=== PATIENT | male | born 1950 ===

== ENCOUNTER 2017-02-09 16:51 | Inpatient (IN) | payer BC ==
[~2017-02-09] VITALS: Ht 182.9 cm; Wt 53.9 kg
[2017-02-09 21:00] VITALS: BP 149/72; PULSE 66; RESP 18; TEMP 98.2; O2SAT 96
[2017-02-09] MEDS ORDERED: SODIUM CHLORIDE 0.9% FLUSH 10 ML FLUSH IV FLUSH PRN (21:45)
[2017-02-09] MEDS ORDERED: MAGNESIUM HYDROXIDE SUSP 30 ML CUP PO PRN (21:45)
[2017-02-09] MEDS ORDERED: ACETAMINOPHEN 325 MG TAB PO PRN (21:45)
[2017-02-09] MEDS ORDERED: ACETAMINOPHEN/HYDROcodone 325 MG/5 MG TAB PO PRN (21:45)
[2017-02-09] MEDS ORDERED: MORPHINE SULFATE 2 MG/ML INJ IV PUSH PRN (21:45)
[2017-02-09] MEDS ORDERED: HEPARIN-D5W 25,000 U/250 ML 250 ML IV PRN (21:45)
[2017-02-09] MEDS ORDERED: ONDANSETRON HCL 4 MG/2 ML VIAL IVP PRN (21:45)
[2017-02-09] MEDS ORDERED: LACTULOSE SYRUP 20 GM/30 ML CUP PO PRN (21:45)
[2017-02-09] MEDS ORDERED: BISACODYL 10 MG SUPP RECTAL PRN (21:45)
[2017-02-09] MEDS ORDERED: SENNOSIDES 8.6 MG TAB PO PRN (21:45)
[2017-02-09] MEDS ORDERED: ACET-822 PO (21:49)
[2017-02-09] MEDS ORDERED: REST30CA PO (22:08)
[2017-02-09] MEDS ORDERED: BENZ100 PO (22:08)
[2017-02-09] MEDS ORDERED: LIPI20TA PO (22:08)
[2017-02-09] MEDS ORDERED: PROM25TA10 PO (22:08)
[2017-02-09] MEDS ORDERED: CARV3.125 PO (22:08)
[2017-02-09] MEDS ORDERED: PROT40TA PO (22:08)
[2017-02-09] MEDS ORDERED: CEFT1INJ2 IV (22:08)
[2017-02-09] MEDS ORDERED: [UNRECOGNIZED DRUG - CODE] IV (22:08)
[2017-02-09] MEDS ORDERED: CARV6.25 PO (22:08)
[2017-02-09] MEDS ORDERED: ZOFR4TAB PO (22:08)
[2017-02-09] MEDS ORDERED: CLON0.2T PO ×2 (22:08→22:23)
[2017-02-09] MEDS ORDERED: ACYC400T PO (22:08)
[2017-02-09] MEDS ORDERED: CALC0.25 PO (22:08)
[2017-02-09] MEDS ORDERED: OXYC30TA PO (22:08)
[2017-02-09] MEDS ORDERED: OXYC-395 PO (22:08)
[2017-02-09] MEDS ORDERED: INSU100C (22:15)
[2017-02-09 23:00] VITALS: BP 173/80; PULSE 66; RESP 18; TEMP 98.2; O2SAT 98
[2017-02-09] MEDS ORDERED: BENZONATATE 100 MG CAP PO PRN (23:00)
[2017-02-09] MEDS ORDERED: DEXTROSE 50% IN WATER 50 ML VIAL(D50) IV PUSH PRN (23:00)
[2017-02-09] MEDS ORDERED: GLUCAGON 1 MG/ML VIAL OTHER PRN (23:00)
[2017-02-09 23:10] VITALS: PULSE 64
[2017-02-09 23:31] LABS: HEMATOCRIT 25.9 % (39.0-51.0); HEMOGLOBIN 8.7 GM/DL (13.0-17.0); MEAN CELL VOLUME 92.8 FL (80.0-100.0); MEAN CORPUSCULAR HEMOGLOBIN 31.1 PG (27.0-34.0); MEAN CORPUSCULAR HGB CONC 33.5 % (32.0-36.0); MEAN PLATELET VOLUME 7.7 FL (7.0-11.0); PLATELET COUNT 219 TH/MM3 (150-450); RED BLOOD COUNT 2.79 MIL/MM3 (4.50-5.90); RED CELL DISTRIBUTION WIDTH 13.3 % (11.6-17.2); WHITE BLOOD COUNT 7.3 TH/MM3 (4.0-11.0)
[2017-02-09 23:33] LABS: PROTHROMBIN TIME - PATIENT 10.5 SEC (9.8-11.6)
[2017-02-10] VITALS (9 sets, daily range): BP systolic 149–186; BP diastolic 70–88; PULSE 64–77; RESP 18–20; TEMP 97.8–98.8; O2SAT 96–98
[2017-02-10] MEDS: HEPARIN-D5W 25,000 U/250 ML 250 ML IV PRN (05:06)
[2017-02-10 05:17] LABS: AUTOMATED NEUTROPHIL # 5.1 TH/MM3 (1.8-7.7); BASOPHIL % 0.6 % (0.0-2.0); EOSINOPHIL # 0.3 TH/MM3 (0-0.4); EOSINOPHIL % 3.7 % (0.0-4.0); HEMATOCRIT 24.9 % (39.0-51.0); HEMOGLOBIN 8.4 GM/DL (13.0-17.0); LYMPHOCYTE # 1.3 TH/MM3 (1.0-4.8); MEAN CELL VOLUME 91.5 FL (80.0-100.0); MEAN CORPUSCULAR HEMOGLOBIN 31.1 PG (27.0-34.0); MEAN PLATELET VOLUME 7.6 FL (7.0-11.0); MONO % 9.4 % (0.0-8.0); MONOCYTE # 0.7 TH/MM3 (0-0.9); NEUT % 68.3 % (16.0-70.0); PLATELET COUNT 218 TH/MM3 (150-450); RED BLOOD COUNT 2.72 MIL/MM3 (4.50-5.90); RED CELL DISTRIBUTION WIDTH 13.2 % (11.6-17.2); WHITE BLOOD COUNT 7.4 TH/MM3 (4.0-11.0)
[2017-02-10 05:46] LABS: ALBUMIN 2.2 GM/DL (3.4-5.0); AST (GOT) 9 U/L (15-37); BICARBONATE 27.9 MEQ/L (21.0-32.0); BLOOD UREA NITROGEN 24 MG/DL (7-18); CALCIUM 8.8 MG/DL (8.5-10.1); CHLORIDE 105 MEQ/L (98-107); CREATININE 1.68 MG/DL (0.60-1.30); GLOMERULAR FILTRATION RATE 41 ML/MIN (>89); GLUCOSE,RANDOM 163 MG/DL (74-106); SODIUM (NA) 141 MEQ/L (136-145)
[2017-02-10 05:50] LABS: ALKALINE PHOSPHATASE 83 U/L (45-117); ALT (GPT) 13 U/L (12-78); TOTAL BILIRUBIN ADULT 0.2 MG/DL (0.2-1.0); TOTAL PROTEIN 5.8 GM/DL (6.4-8.2)
[2017-02-10] MEDS: CARVEDILOL 6.25 MG TAB PO SCH ×2 (06:23→15:55)
[2017-02-10] MEDS: INSULIN ASPART SUPPLEMENTAL SCALE SQ SCH ×4 (08:00→21:25)
[2017-02-10] MEDS: CALCITRIOL 0.25 MCG CAP PO SCH (08:21)
[2017-02-10] MEDS: cefTRIAXone INJ 1,000 MG in SODIUM CHLORIDE 0.9% INJ 100 ML IV SCH (08:22)
[2017-02-10] MEDS: PANTOPRAZOLE SOD 40 MG DELAYED RELEASE TAB PO SCH (08:22)
[2017-02-10] MEDS: ACYCLOVIR 200 MG CAP PO SCH ×2 (08:22→21:24)
[2017-02-10] MEDS: SODIUM CHLORIDE 0.9% FLUSH 10 ML FLUSH IV FLUSH SCH ×2 (08:22→21:25)
[2017-02-10] MEDS: DOCUSATE SODIUM 50 MG/SENNA 8.6 MG TAB PO SCH ×2 (08:22→21:24)
--- NOTE | 2017-02-10 09:17 | HHI.HP ---
HPI Service [facility] Hospitalists Primary Care Physician No Primary Care Physician Admission Diagnosis Diagnoses: (1) Lower limb ischemia Chief Complaint: Transfer from outside hospital for limb ischemia Travel History International Travel<30 Days: No Contact w/Intl Traveler <30 Da: No History of Present Illness 66-year-old male with a medical history significant for multiple myeloma, hypertension, diabetes, COPD, GERD, tobacco abuser, and previous prostate cancer. The patient was transferred from [facility]. Apparently he was admitted there for discolored left first toe. He stopped his Toprol about 3 weeks prior. He had a small abrasion on the distal tip of the toe. This has not been healing and he continued to experience pain. At the outside hospital, the patient was evaluated by vascular surgery. 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 Give in his kidney functions, patient could not have CTA. Patient was transferred to [facility] for definitive treatment with vascular surgery consult. Records from the outside hospital extensively reviewed. He was being treated for cellulitis and has been on a heparin drip. Currently the patient has no other complaints except for discomfort at the left foot with movement. Review of Systems Constitutional: COMPLAINS OF: Fever (at home prior to hospital presentation), Weight loss (since started on chemotherapy treatment) Respiratory: COMPLAINS OF: Cough (chronic), Wheezing Cardiovascular: DENIES: Chest pain Gastrointestinal: DENIES: Nausea, Vomiting Genitourinary: DENIES: Dysuria Musculoskeletal: COMPLAINS OF: Joint pain Integumentary: COMPLAINS OF: Rash Psychiatric: DENIES: Mood changes Except as stated in HPI: all other systems reviewed are Neg Past Family Social History Past Medical History multiple myeloma, hypertension, diabetes, COPD, GERD, tobacco abuser, and previous prostate cancer Past Surgical History Radical prostatectomy Bilateral cataract surgery Port placement Reported Medications Reported Meds & Active Scripts Active Reported Clonidine (Clonidine HCl) 0.2 Mg Tab 0.2 Mg PO Q2HR PRN Humalog (Insulin Lispro) 100 Unit/Ml Cartridge ACHS SLIDING SCALE Oxycodone (Oxycodone HCl) 10 Mg Tab 10 Mg PO QID PRN Protonix (Pantoprazole Sodium) 40 Mg Tab 40 Mg PO DAILY Phenergan (Promethazine HCl) 25 Mg Tablet 25 Mg PO EVERY 6HRS Restoril (Temazepam) 30 Mg Cap 30 Mg PO HS PRN Zofran (Ondansetron HCl) 4 Mg Tab 4 Mg PO BID PRN Heparin 2,500 Unit/250 ml-Ns (Heparin Sod,Porcine/0.9 % NaCl) 2,500 Unit/250 Ml (10 Unit/Ml) Iv.soln IV Ceftriaxone 1 gm-D5w Bag (Ceftriaxone in Is-Osm Dextrose) 1 Gram/50 Ml Piggyback IV DAILY Coreg (Carvedilol) 6.25 Mg Tab 6.25 Mg PO BIDAC Coreg (Carvedilol) 3.125 Mg Tab Mg PO BID Calcitriol 0.25 Mcg Cap 0.25 Mcg PO DAILY Tessalon Perles (Benzonatate) 100 Mg Cap 100 Mg PO BID PRN Lipitor (Atorvastatin Calcium) 20 Mg Tab 20 Mg PO HS Acyclovir 400 Mg Tab 400 Mg PO BID Tylenol Extra Strength (Acetaminophen) 500 Mg Tablet PO Allergies: Coded Allergies: No Known Allergies (Verified Allergy, Unknown, 02/09/17) Family History Father with history of esophageal cancer Social History Patient is a lifelong, current and every day smoker. Has been smoking at least three-quarter packs a day. He denies alcohol use or illicit drug use. Physical Exam Vital Signs Vital Signs Date Time Temp Pulse Resp B/P (MAP) Pulse Ox O2 Delivery O2 Flow Rate FiO2 02/10/17 04:00 67 02/10/17 03:40 98.0 72 18 154/80 (104) 97 02/10/17 00:00 64 02/09/17 23:10 64 02/09/17 23:00 98.2 66 18 173/80 (111) 98 02/09/17 21:00 98.2 66 18 149/72 (97) 96 Physical Exam GENERAL: Patient appearing older than stated age, frail, in no apparent distress. SKIN: Left great toe is necrotic. Second and third toes also purple. Mild cellulitis extending to the mid foot HEAD: Atraumatic. Normocephalic. No temporal or scalp tenderness. EYES: Pupils equal round and reactive. Extraocular motions intact. No scleral icterus. No injection or drainage. ENT: Nose without drainage. Airway patent. NECK: Trachea midline. No JVD or lymphadenopathy. Supple, nontender, no meningeal signs. CARDIOVASCULAR: Regular rate and rhythm without murmurs, gallops, or rubs. RESPIRATORY: Clear to auscultation. Breath sounds equal bilaterally. No wheezes , rales, or rhonchi. GASTROINTESTINAL: Abdomen soft, non-tender, nondistended. No hepato-splenomegaly , or palpable masses. No guarding. MUSCULOSKELETAL: I am unable to palpate a dorsalis pedis pulse bilaterally. Left foot cooler compared to right. NEUROLOGICAL: Awake and alert. Normal speech. Laboratory Laboratory Tests Test 02/09/17 23:00 02/10/17 05:00 White Blood Count 7.3 7.4 Red Blood Count 2.79 2.72 Hemoglobin 8.7 8.4 Hematocrit 25.9 24.9 Mean Corpuscular Volume 92.8 91.5 Mean Corpuscular Hemoglobin 31.1 31.1 Mean Corpuscular Hemoglobin Concent 33.5 34.0 Red Cell Distribution Width 13.3 13.2 Platelet Count 219 218 Mean Platelet Volume 7.7 7.6 Prothrombin Time 10.5 Prothromb Time International Ratio 1.0 Activated Partial Thromboplast Time 51.1 47.4 Neutrophils (%) (Auto) 68.3 Lymphocytes (%) (Auto) 18.0 Monocytes (%) (Auto) 9.4 Eosinophils (%) (Auto) 3.7 Basophils (%) (Auto) 0.6 Neutrophils # (Auto) 5.1 Lymphocytes # (Auto) 1.3 Monocytes # (Auto) 0.7 Eosinophils # (Auto) 0.3 Basophils # (Auto) 0.0 CBC Comment DIFF FINAL Differential Comment Blood Urea Nitrogen 24 Creatinine 1.68 Random Glucose 163 Total Protein 5.8 Albumin 2.2 Calcium Level 8.8 Alkaline Phosphatase 83 Aspartate Amino Transf (AST/SGOT) 9 Alanine Aminotransferase (ALT/SGPT) 13 Total Bilirubin 0.2 Sodium Level 141 Potassium Level 3.5 Chloride Level 105 Carbon Dioxide Level 27.9 Anion Gap 8 Estimat Glomerular Filtration Rate 41 Result Diagram: 02/10/17 0500 02/10/17 0500 Caprini VTE Risk Assessment Caprini VTE Risk Assessment: Mod/High Risk (score >= 2) Caprini Risk Assessment Model Point Value = 1 Point Value = 2 Point Value = 3 Point Value = 5 Age 41-60 Minor surgery BMI > 25 kg/m2 Swollen legs Varicose veins or History of unexplained or recurrent spontaneous Oral contraceptives or hormone replacement Sepsis (< 1 month) Serious lung disease, including pneumonia (< 1 month) Abnormal pulmonary function Acute myocardial infarction Congestive heart failure (< 1 month) History of inflammatory bowel disease Medical patient at bed rest Age 61-74 Arthroscopic surgery Major open surgery (> 45 min) Laparoscopic surgery (> 45 min) Malignancy Confined to bed (> 72 hours) Immobilizing plaster cast Central venous access Age >= 75 History of VTE Family history of VTE Factor V Leiden Prothrombin [id number] Lupus anticoagulant Anticardiolipin antibodies Elevated serum homocysteine Heparin-induced thrombocytopenia Other congenital or acquired thrombophilia Stroke (< 1 month) Elective arthroplasty Hip, pelvis, or leg fracture Acute spinal cord injury (< 1 month) Prophylaxis Regimen Total Risk Factor Score Risk Level Prophylaxis Regimen 0-1 Low Early ambulation 2 Moderate Order ONE of the following: *Sequential Compression Device (SCD) *Heparin 5000 units SQ BID 3-4 Higher Order ONE of the following medications: *Heparin 5000 units SQ TID *Enoxaparin/Lovenox 40 mg SQ daily (WT < 150 kg, CrCl > 30 mL/min) *Enoxaparin/Lovenox 30 mg SQ daily (WT < 150 kg, CrCl > 10-29 mL/min) *Enoxaparin/Lovenox 30 mg SQ BID (WT < 150 kg, CrCl > 30 mL/min) AND/OR *Sequential Compression Device (SCD) 5 or more Highest Order ONE of the following medications: *Heparin 5000 units SQ TID (Preferred with Epidurals) *Enoxaparin/Lovenox 40 mg SQ daily (WT < 150 kg, CrCl > 30 mL/min) *Enoxaparin/Lovenox 30 mg SQ daily (WT < 150 kg, CrCl > 10-29 mL/min) *Enoxaparin/Lovenox 30 mg SQ BID (WT < 150 kg, CrCl > 30 mL/min) AND *Sequential Compression Device (SCD) Assessment and Plan Problem List: (1) Cellulitis ICD Code: L03.90 - Cellulitis, unspecified (2) Lower limb ischemia ICD Code: I99.8 - Other disorder of circulatory system (3) CKD (chronic kidney disease) ICD Code: N18.9 - Chronic kidney disease, unspecified (4) Diabetes ICD Code: E11.9 - Type 2 diabetes mellitus without complications (5) Tobacco abuse ICD Code: Z72.0 - Tobacco use Assessment and Plan 66-year-old male presented with left lower extremity ischemia and cellulitis. Left great toe is necrotic, second and third great toe purple. There is evidence of cellulitis. - Vascular surgery consulted - Continue heparin drip - Continue Rocephin - Aspirin, continue statin. Patient strongly counseled to quit using tobacco. - He may need debridement. X-ray at the outside facility did not show any bony erosions. Diabetes: - Continue sliding scale insulin with Accu-Cheks - Patient is not eating much. Okay for regular diet. CKD: Unsure what his baseline is. - Follow renal functions. Avoid nephrotoxins. Multiple myeloma: He was evaluated by oncology at the outside hospital. No acute treatment indicated at this point. The recommendation. Outpatient follow -up is advised. Patient can continue same home medications. Chronic pain: Continue pain medication. Tobacco abuse: - Counseled patient on complete cessation given his significant vascular disease. GI prophylaxis: Stool softener PRN constipation. DVT PPx: Heparin Discussed Condition With Patient and his sister at bedside. Physician Certification 2 Midnight Certification Type: Admission for Inpatient Services Order for Inpatient Services The services are ordered in accordance with Medicare regulations or non- Medicare payer requirements, as applicable. In the case of services not specified as inpatient-only, they are appropriately provided as inpatient services in accordance with the 2-midnight benchmark. Estimated LOS (days): 5 days is the estimated time the patient will need to remain in the hospital, assuming treatment plan goals are met and no additional complications. Post-Hospital Plan: Not yet determined Noel Burris MD Feb 10, 2017 09:17
--- NOTE | 2017-02-10 09:55 | PD.VS.CON ---
History of Present Illness Chief Complaint: L great toe tissue loss Consult Requested by: medical service History of Present Illness 66 yo male with L LE great toe pain and discoloration that started about a month ago and for which he was apparently hospitalized at another facility. The patient and his are very poor historians and don't recall much of the work-up done. He notes that prior to the pain that accompanies the discoloration, he was ambulating. He has atherosclerotic risk factors of DM and smoking as well as hyperlipidemia and HTN. Past/Family/Social History Past Medical History HTN XOL PAD prostate "problems" multiple myeloma Past Surgical History L chest [id number] knee surgery prostate surgery Social History + tobacco Family History NC Home Medications Reported Medications Clonidine (Clonidine) 0.2 Mg Tab, 0.2 MG PO Q2HR Y for PRN, #60 TAB 0 Refills 02/09/17 Insulin Lispro (Humalog) 100 Unit/Ml Cartridge, ACHS SLIDING SCALE 02/09/17 Oxycodone (Oxycodone) 10 Mg Tab, 10 MG PO QID Y for PRN, TAB 0 Refills 02/09/17 Pantoprazole (Protonix) 40 Mg Tab, 40 MG PO DAILY for Reflux, #30 TAB 0 Refills 02/09/17 Promethazine (Phenergan) 25 Mg Tablet, 25 MG PO EVERY 6HRS, #1 TAB 0 Refills 02/09/17 Temazepam (Restoril) 30 Mg Cap, 30 MG PO HS Y for INSOMNIA, #30 CAP 0 Refills 18 Ondansetron (Zofran) 4 Mg Tab, 4 MG PO BID Y for NAUSEA OR VOMITING, TAB 0 Refills 02/09/17 Heparin Sod,Porcine/0.9 % NaCl (Heparin 2,500 Unit/250 ml-Ns) 2,500 Unit/250 Ml (10 Unit/Ml) Iv.soln, IV 02/09/17 Ceftriaxone in Is-Osm Dextrose (Ceftriaxone 1 gm-D5w Bag) 1 Gram/50 Ml Piggyback , IV DAILY 02/09/17 Carvedilol (Coreg) 6.25 Mg Tab, 6.25 MG PO BIDAC, #60 TAB 0 Refills 02/09/17 Carvedilol (Coreg) 3.125 Mg Tab, MG PO BID, #60 TAB 0 Refills 02/09/17 Calcitriol (Calcitriol) 0.25 Mcg Cap, 0.25 MCG PO DAILY for Calcium Supplement, #30 CAP 0 Refills 02/09/17 Benzonatate (Tessalon Perles) 100 Mg Cap, 100 MG PO BID Y for COUGH, CAP 0 Refills 02/09/17 Atorvastatin (Lipitor) 20 Mg Tab, 20 MG PO HS for Cholesterol Management, #30 TAB 0 Refills 02/09/17 Acyclovir (Acyclovir) 400 Mg Tab, 400 MG PO BID for Mgmt Viral Infection, TAB 0 Refills 02/09/17 Acetaminophen (Tylenol Extra Strength) 500 Mg Tablet, PO 02/09/17 Discontinued Reported Medications Oxycodone (Oxycodone) 30 Mg Tab, 30 MG PO BID Y for PAIN, TAB 0 Refills 02/09/17 Coded Allergies: No Known Allergies (Verified Allergy, Unknown, 02/09/17) Review of Systems Eyes: DENIES: Vision loss Cardiovascular: COMPLAINS OF: Dyspnea on Exertion, DENIES: Chest pain, Claudication Gastrointestinal: DENIES: Abdominal pain Physical Exam Vitals/I&O Date Time Temp Pulse Resp B/P (MAP) Pulse Ox O2 Delivery O2 Flow Rate FiO2 02/10/17 04:00 67 02/10/17 03:40 98.0 72 18 154/80 (104) 97 02/10/17 00:00 64 02/09/17 23:10 64 02/09/17 23:00 98.2 66 18 173/80 (111) 98 02/09/17 21:00 98.2 66 18 149/72 (97) 96 02/10/17 02/10/17 02/10/17 07:00 15:00 23:00 Intake Total 565.2 ml Output Total 650 ml Balance -84.8 ml Neuro: thin, frail male in NAD HEENT: NC/AT; anicteric sclera Neck: no JVD; trachea midline; L chest ikrqdo-r-mfoi catheter tunneled anterior low left neck Heart: reg rate, no M Lungs: clear B Abdomen: nontender Vascular: palpable femoral pulses bilaterally palpable L popliteal pulse but no pedal pulses Extremities: L great toe cyanotic and dry gangrene at tip Laboratory Tests Test 02/09/17 23:00 02/10/17 05:00 White Blood Count 7.3 7.4 Red Blood Count 2.79 2.72 Hemoglobin 8.7 8.4 Hematocrit 25.9 24.9 Mean Corpuscular Volume 92.8 91.5 Mean Corpuscular Hemoglobin 31.1 31.1 Mean Corpuscular Hemoglobin Concent 33.5 34.0 Red Cell Distribution Width 13.3 13.2 Platelet Count 219 218 Mean Platelet Volume 7.7 7.6 Prothrombin Time 10.5 Prothromb Time International Ratio 1.0 Activated Partial Thromboplast Time 51.1 47.4 Neutrophils (%) (Auto) 68.3 Lymphocytes (%) (Auto) 18.0 Monocytes (%) (Auto) 9.4 Eosinophils (%) (Auto) 3.7 Basophils (%) (Auto) 0.6 Neutrophils # (Auto) 5.1 Lymphocytes # (Auto) 1.3 Monocytes # (Auto) 0.7 Eosinophils # (Auto) 0.3 Basophils # (Auto) 0.0 CBC Comment DIFF FINAL Differential Comment Blood Urea Nitrogen 24 Creatinine 1.68 Random Glucose 163 Total Protein 5.8 Albumin 2.2 Calcium Level 8.8 Alkaline Phosphatase 83 Aspartate Amino Transf (AST/SGOT) 9 Alanine Aminotransferase (ALT/SGPT) 13 Total Bilirubin 0.2 Sodium Level 141 Potassium Level 3.5 Chloride Level 105 Carbon Dioxide Level 27.9 Anion Gap 8 Estimat Glomerular Filtration Rate 41 Assessment and Plan Plan L LE PAD, infrageniculate, and tissue loss; severely malnourished overall and likely poor rehab candidate 1. L LE angiogram on Sunday; will give HCO3 and mucomyst pre-op given slight CRI 2. nutritional supplements 3. CV risk factor modification: ASA, statin, smoking cessation Gibson Amaral MD FASC RPVI bookmobile librarian [facility] at [facility] [phone] Gibson Amaral MD Feb 10, 2017 09:55
[2017-02-10] MEDS: oxyCODONE HCL 10 MG CONTROLLED RELEASE TAB PO PRN (17:17)
[2017-02-10] MEDS: ATORVASTATIN 20 MG TAB PO SCH (21:24)
[2017-02-11] VITALS (7 sets, daily range): BP systolic 129–170; BP diastolic 62–86; PULSE 66–78; RESP 16–20; TEMP 98.2–98.8; O2SAT 97–99
[2017-02-11] MEDS: cloNIDine HCL 0.1 MG TAB PO PRN ×2 (02:58→09:49)
[2017-02-11] MEDS: HEPARIN-D5W 25,000 U/250 ML 250 ML IV PRN (03:57)
[2017-02-11] MEDS: CARVEDILOL 6.25 MG TAB PO SCH ×2 (06:04→16:45)
[2017-02-11 06:19] LABS: HEMATOCRIT 24.7 % (39.0-51.0); HEMOGLOBIN 8.5 GM/DL (13.0-17.0); MEAN CELL VOLUME 91.5 FL (80.0-100.0); MEAN CORPUSCULAR HEMOGLOBIN 31.3 PG (27.0-34.0); MEAN CORPUSCULAR HGB CONC 34.2 % (32.0-36.0); MEAN PLATELET VOLUME 7.7 FL (7.0-11.0); PLATELET COUNT 223 TH/MM3 (150-450); RED CELL DISTRIBUTION WIDTH 13.5 % (11.6-17.2); WHITE BLOOD COUNT 8.4 TH/MM3 (4.0-11.0)
[2017-02-11 06:40] LABS: BICARBONATE 27.7 MEQ/L (21.0-32.0); CALCIUM 8.8 MG/DL (8.5-10.1); CREATININE 1.64 MG/DL (0.60-1.30)
[2017-02-11] MEDS: INSULIN ASPART SUPPLEMENTAL SCALE SQ SCH ×4 (08:00→21:38)
[2017-02-11] MEDS: oxyCODONE HCL 10 MG CONTROLLED RELEASE TAB PO PRN ×2 (08:09→22:41)
[2017-02-11] MEDS: PANTOPRAZOLE SOD 40 MG DELAYED RELEASE TAB PO SCH (08:11)
[2017-02-11] MEDS: ASPIRIN EC 81 MG TABEC PO SCH (08:11)
[2017-02-11] MEDS: CALCITRIOL 0.25 MCG CAP PO SCH (08:11)
[2017-02-11] MEDS: ACYCLOVIR 200 MG CAP PO SCH ×2 (08:11→21:37)
[2017-02-11] MEDS: SODIUM CHLORIDE 0.9% FLUSH 10 ML FLUSH IV FLUSH SCH ×2 (08:13→21:00)
[2017-02-11] MEDS: cefTRIAXone INJ 1,000 MG in SODIUM CHLORIDE 0.9% INJ 100 ML IV SCH (09:00)
[2017-02-11] MEDS: DOCUSATE SODIUM 50 MG/SENNA 8.6 MG TAB PO SCH ×2 (09:00→21:37)
[2017-02-11] MEDS ORDERED: POTASSIUM CHLORIDE 20 MEQ CONTROLLED RELEASE TAB PO ONE (10:00)
--- NOTE | 2017-02-11 15:02 | HHI.PR ---
Subjective Remarks Patient reports he is feeling okay. Pain is controlled. Objective Vitals Vital Signs Date Time Temp Pulse Resp B/P (MAP) Pulse Ox O2 Delivery O2 Flow Rate FiO2 02/11/17 12:00 98.5 78 18 129/62 (84) 98 02/11/17 08:00 98.5 70 20 170/81 (110) 98 02/11/17 08:00 68 02/11/17 04:05 70 02/11/17 04:00 98.8 75 17 158/86 (110) 97 02/11/17 00:24 67 02/10/17 20:03 66 02/10/17 20:00 98.3 77 18 158/72 (100) 98 02/10/17 16:00 98.8 75 20 186/88 (120) 97 I/O 02/10/17 02/10/17 02/10/17 02/11/17 02/11/17 02/11/17 07:00 15:00 23:00 07:00 15:00 23:00 Intake Total 565.2 ml 100 ml 716 ml 921 ml Output Total 650 ml 525 ml 625 ml Balance -84.8 ml 100 ml 191 ml 296 ml Intake Oral 480 ml 716 ml 690 ml IV Total 85.2 ml 100 ml 231 ml Output Urine Total 650 ml 525 ml 625 ml # Voids 3 # Bowel Movements 0 0 0 Result Diagram: 02/11/17 0600 02/11/17 0600 Objective Remarks GENERAL: Patient appearing older than stated age, frail, in no apparent distress. SKIN: Left great toe is necrotic. Second and third toes also purple. Mild cellulitis extending to the mid foot CARDIOVASCULAR: Regular rate and rhythm without murmurs, gallops, or rubs. RESPIRATORY: Clear to auscultation. Breath sounds equal bilaterally. No wheezes , rales, or rhonchi. GASTROINTESTINAL: Abdomen soft, non-tender, nondistended. No guarding. MUSCULOSKELETAL: I am unable to palpate a dorsalis pedis pulse bilaterally. Left foot cooler compared to right. NEUROLOGICAL: Awake and alert. Normal speech. A/P Problem List: (1) Cellulitis ICD Code: L03.90 - Cellulitis, unspecified (2) Lower limb ischemia ICD Code: I99.8 - Other disorder of circulatory system (3) CKD (chronic kidney disease) ICD Code: N18.9 - Chronic kidney disease, unspecified (4) Diabetes ICD Code: E11.9 - Type 2 diabetes mellitus without complications (5) Tobacco abuse ICD Code: Z72.0 - Tobacco use Assessment and Plan 66-year-old male presented with left lower extremity ischemia and cellulitis. Left great toe is necrotic, second and third great toe purple. There is evidence of cellulitis. - Vascular surgery following. Plan for angiogram tomorrow per vascular surgery. - Continue heparin drip - Continue Rocephin - Aspirin, continue statin. Patient strongly counseled to quit using tobacco. - He may need debridement. X-ray at the outside facility did not show any bony erosions. Diabetes: - Continue sliding scale insulin with Accu-Cheks - Patient is not eating much. Okay for regular diet. CKD: Unsure what his baseline is. Stable today - Follow renal functions. Avoid nephrotoxins. Multiple myeloma: He was evaluated by oncology at the outside hospital. No acute treatment indicated at this point. The recommendation. Outpatient follow -up is advised. Patient can continue same home medications. Chronic pain: Continue pain medication. Tobacco abuse: - Counseled patient on complete cessation given his significant vascular disease. GI prophylaxis: Stool softener PRN constipation. DVT PPx: Heparin Noel Burris MD Feb 11, 2017 15:02
[2017-02-11] MEDS: ATORVASTATIN 20 MG TAB PO SCH (21:37)
[2017-02-11] MEDS: TEMAZEPAM 15 MG CAP PO PRN (22:41)
[2017-02-11] MEDS: SODIUM BICARBONATE 8.4% INJ 50 MEQ in DEXTROSE 5% IN WATE 1000ML INJ 1,000 ML IV SCH ×2 (23:46)
[2017-02-12] VITALS (9 sets, daily range): BP systolic 121–179; BP diastolic 61–82; PULSE 64–72; RESP 16–18; TEMP 97.7–98.2; O2SAT 96–97
[2017-02-12] MEDS: cloNIDine HCL 0.1 MG TAB PO PRN ×2 (02:18→17:10)
[2017-02-12] MEDS: HEPARIN-D5W 25,000 U/250 ML 250 ML IV PRN (03:06)
[2017-02-12] MEDS: CARVEDILOL 6.25 MG TAB PO SCH ×2 (05:53→17:10)
[2017-02-12 06:24] LABS: HEMATOCRIT 24.9 % (39.0-51.0); HEMOGLOBIN 8.8 GM/DL (13.0-17.0); MEAN CELL VOLUME 91.9 FL (80.0-100.0); MEAN CORPUSCULAR HEMOGLOBIN 32.5 PG (27.0-34.0); MEAN CORPUSCULAR HGB CONC 35.4 % (32.0-36.0); MEAN PLATELET VOLUME 7.8 FL (7.0-11.0); PLATELET COUNT 231 TH/MM3 (150-450); RED BLOOD COUNT 2.71 MIL/MM3 (4.50-5.90); RED CELL DISTRIBUTION WIDTH 13.3 % (11.6-17.2); WHITE BLOOD COUNT 7.6 TH/MM3 (4.0-11.0)
[2017-02-12 06:41] LABS: BICARBONATE 26.7 MEQ/L (21.0-32.0); CALCIUM 8.8 MG/DL (8.5-10.1); CREATININE 1.65 MG/DL (0.60-1.30)
[2017-02-12] MEDS: INSULIN ASPART SUPPLEMENTAL SCALE SQ SCH ×4 (08:00→21:59)
[2017-02-12] MEDS: CALCITRIOL 0.25 MCG CAP PO SCH (09:01)
[2017-02-12] MEDS: PANTOPRAZOLE SOD 40 MG DELAYED RELEASE TAB PO SCH (09:01)
[2017-02-12] MEDS: cefTRIAXone INJ 1,000 MG in SODIUM CHLORIDE 0.9% INJ 100 ML IV SCH (09:01)
[2017-02-12] MEDS: DOCUSATE SODIUM 50 MG/SENNA 8.6 MG TAB PO SCH ×2 (09:02→21:59)
[2017-02-12] MEDS: SODIUM CHLORIDE 0.9% FLUSH 10 ML FLUSH IV FLUSH SCH ×2 (09:02→22:00)
[2017-02-12] MEDS: ASPIRIN EC 81 MG TABEC PO SCH (09:02)
[2017-02-12] MEDS: ACYCLOVIR 200 MG CAP PO SCH ×2 (09:06→21:58)
--- NOTE | 2017-02-12 14:30 | HHI.PR ---
Subjective Remarks Patient reports is feeling okay. Pain is controlled. Objective Vitals Vital Signs Date Time Temp Pulse Resp B/P (MAP) Pulse Ox O2 Delivery O2 Flow Rate FiO2 02/12/17 08:00 98.1 69 18 159/76 (103) 96 02/12/17 07:45 162/78 (106) 02/12/17 04:00 97.7 70 18 179/74 (109) 97 02/12/17 03:47 72 02/12/17 01:23 67 02/12/17 00:00 98.2 72 18 164/82 (109) 97 02/11/17 23:46 18 02/11/17 20:00 70 02/11/17 20:00 98.2 66 16 144/71 (95) 99 02/11/17 16:00 98.6 69 18 165/81 (109) 98 I/O 02/11/17 02/11/17 02/11/17 02/12/17 02/12/17 02/12/17 07:00 15:00 23:00 07:00 15:00 23:00 Intake Total 921 ml 980 ml 500 ml Output Total 625 ml 1000 ml 250 ml 250 ml Balance 296 ml -20 ml 250 ml -250 ml Intake Oral 690 ml 980 ml IV Total 231 ml 500 ml Output Urine Total 625 ml 1000 ml 250 ml 250 ml # Bowel Movements 0 0 Result Diagram: 02/12/17 0600 02/12/17 0600 Objective Remarks GENERAL: Patient appearing older than stated age, frail, in no apparent distress. SKIN: Left great toe is necrotic. Second and third toes also purple. Mild cellulitis extending to the mid foot CARDIOVASCULAR: Regular rate and rhythm without murmurs, gallops, or rubs. RESPIRATORY: Clear to auscultation. Breath sounds equal bilaterally. No wheezes , rales, or rhonchi. GASTROINTESTINAL: Abdomen soft, non-tender, nondistended. No guarding. MUSCULOSKELETAL: I am unable to palpate a dorsalis pedis pulse bilaterally. Left foot cooler compared to right. NEUROLOGICAL: Awake and alert. Normal speech. A/P Problem List: (1) Cellulitis ICD Code: L03.90 - Cellulitis, unspecified (2) Lower limb ischemia ICD Code: I99.8 - Other disorder of circulatory system (3) CKD (chronic kidney disease) ICD Code: N18.9 - Chronic kidney disease, unspecified (4) Diabetes ICD Code: E11.9 - Type 2 diabetes mellitus without complications (5) Tobacco abuse ICD Code: Z72.0 - Tobacco use Assessment and Plan 66-year-old male presented with left lower extremity ischemia and cellulitis. Left great toe is necrotic, second and third great toe purple. There is evidence of cellulitis. - Vascular surgery following. Plan for angiogram today per vascular surgery. - Continue heparin drip - Continue Rocephin - Aspirin, continue statin. Patient strongly counseled to quit using tobacco. - He may need debridement. X-ray at the outside facility did not show any bony erosions. Diabetes: - Continue sliding scale insulin with Accu-Cheks - Patient is not eating much. Okay for regular diet. CKD: Unsure what his baseline is. Stable today - Follow renal functions. Avoid nephrotoxins. Multiple myeloma: He was evaluated by oncology at the outside hospital. No acute treatment indicated at this point. The recommendation. Outpatient follow -up is advised. Patient can continue same home medications. Chronic pain: Continue pain medication. Tobacco abuse: - Counseled patient on complete cessation given his significant vascular disease. GI prophylaxis: Stool softener PRN constipation. DVT PPx: Heparin Noel Burris MD Feb 12, 2017 14:30
--- NOTE | 2017-02-12 18:17 | EKG ---
Date Performed: 02/12/2017 Time Performed: 06:58:44 PTAGE: 66 years EKG: Sinus rhythm . Left axis deviation RBBB with left anterior fascicular block Abnormal ECG NO PREVIOUS TRACING DOCTOR: Donna Rice Interpretating Date/Time 02/12/2017 18:16:44
[2017-02-12] MEDS: ATORVASTATIN 20 MG TAB PO SCH (21:57)
[2017-02-13] VITALS (8 sets, daily range): BP systolic 115–204; BP diastolic 57–92; PULSE 62–74; RESP 16–20; TEMP 98.3–98.8; O2SAT 96–99
[2017-02-13] MEDS: SODIUM BICARBONATE 8.4% INJ 50 MEQ in DEXTROSE 5% IN WATE 1000ML INJ 1,000 ML IV SCH ×4 (00:05→20:55)
[2017-02-13] MEDS: HEPARIN-D5W 25,000 U/250 ML 250 ML IV PRN (00:13)
[2017-02-13 05:58] LABS: HEMATOCRIT 25.8 % (39.0-51.0); HEMOGLOBIN 8.8 GM/DL (13.0-17.0); MEAN CELL VOLUME 91.5 FL (80.0-100.0); MEAN CORPUSCULAR HEMOGLOBIN 31.1 PG (27.0-34.0); MEAN PLATELET VOLUME 7.8 FL (7.0-11.0); PLATELET COUNT 221 TH/MM3 (150-450); RED BLOOD COUNT 2.82 MIL/MM3 (4.50-5.90); RED CELL DISTRIBUTION WIDTH 13.6 % (11.6-17.2); WHITE BLOOD COUNT 7.1 TH/MM3 (4.0-11.0)
[2017-02-13 06:19] LABS: CALCIUM 8.9 MG/DL (8.5-10.1); CREATININE 1.71 MG/DL (0.60-1.30)
[2017-02-13] MEDS: CARVEDILOL 6.25 MG TAB PO SCH ×2 (06:51→17:30)
[2017-02-13] MEDS ORDERED: MIDAZOLAM HCL 5 MG/5 ML VIAL ONE (07:56)
[2017-02-13] MEDS ORDERED: HEPARIN-NS/PF INJ 1,000 ML ONE (07:56)
[2017-02-13] MEDS: INSULIN ASPART SUPPLEMENTAL SCALE SQ SCH ×4 (08:00→20:54)
[2017-02-13] MEDS: DOCUSATE SODIUM 50 MG/SENNA 8.6 MG TAB PO SCH ×2 (08:00→20:53)
[2017-02-13] MEDS: ASPIRIN EC 81 MG TABEC PO SCH (08:00)
[2017-02-13] MEDS: SODIUM CHLORIDE 0.9% FLUSH 10 ML FLUSH IV FLUSH SCH ×2 (08:00→21:00)
[2017-02-13] MEDS: CALCITRIOL 0.25 MCG CAP PO SCH (08:01)
[2017-02-13] MEDS: PANTOPRAZOLE SOD 40 MG DELAYED RELEASE TAB PO SCH (08:01)
[2017-02-13] MEDS: ACYCLOVIR 200 MG CAP PO SCH ×2 (08:01→20:53)
[2017-02-13] MEDS ORDERED: HEPARIN SODIUM - IV 10,000 UNITS/10 ML VIAL ONE (08:13)
[2017-02-13] MEDS ORDERED: HEPARIN-NS/PF INJ 500 ML ONE (08:44)
[2017-02-13] MEDS ORDERED: hydrALAZINE HCL 20 MG/ML VIAL ONE (08:46)
[2017-02-13] MEDS: hydrALAZINE HCL 20 MG/ML VIAL IV PUSH PRN (08:47)
[2017-02-13] MEDS: cefTRIAXone INJ 1,000 MG in SODIUM CHLORIDE 0.9% INJ 100 ML IV SCH (09:00)
--- NOTE | 2017-02-13 09:12 | HHI.PR ---
cc: Gibson Amaral MD Immediate Post Op Note Procedure Date: Feb 13, 2017 Pre Op Diagnosis: PAD, L LE tissue loss Post Op Diagnosis: PAD, L LE tissue loss Surgeon: Gibson Amaral Industrial Hygenist(s): none Procedure: 1. L LE angiogram 2. L SFA atherectomy/GASSER MACHINE OPERATOR/stent (6x40) 3. L peroneal GASSER MACHINE OPERATOR (2-2.5 mm tapered balloon) 4. R HOSPICE RN Angioseal Findings: 1. SFA tandem stenoses, successful GASSER MACHINE OPERATOR/atherectomy/stent 2. Proximal tibial occlusions x 3, recanalized peroneal Complications: none Specimen(s) removed: none Estimated blood loss: 10mL Anesthesia: MAC Drains: None Patient to: Other (DOCU) Patient Condition: Good Implant/Devices: SEE IMPLANT LOG (if applicable) Date/Time of Procedure: SEE SURGICAL CARE RECORD Gibson Amaral MD Feb 13, 2017 09:12
--- NOTE | 2017-02-13 09:13 | CATHPROC ---
[employer] HIS Report Study Information Study Number Admission Scheduled Start Study Start [id number] Feb 09 2017 9:14PM 02/13/2017 Feb 13 2017 7:38AM [place] [facility] Cath Endovascular Study Admit Source Facility Department Emergency department [facility] - Radiation Control Worker Physician and Clinical Staff Initial Gibson Muse Reconcilement Clerk Michelle Jackson,ABDIEL Recorder Jackie Bills,RT(R) (BS) Recorder Manuel Duron,RT(R) Scrub Daniel Rodriguez,RT(R) Procedures Performed Procedure Location (Site) Vessel Name Angiogram (manual) Fem L. Com (L7) Femoral Art Angiogram (manual) Popliteal L (L10) Popliteal Angiogram (manual) SFA (left) Femoral Art Angiogram (manual) Tib, Ant. (left) Popliteal Angiogram (manual) Tib, Post (Left) Popliteal Periph stent SFA (left) Femoral Art NEW ACCOUNT INTERVIEWER Peroneal (left) Popliteal NEW ACCOUNT INTERVIEWER SFA (left) Femoral Art Wire insertion Fem Art (right) Femoral Art Equipment Time Supervisor Maintenance Description Size Mfg Part Number Used/Scraped [id number] 08:12 ANGIO-DYNAMICS OMNI FLUSH 65CM CATHETER FR 5 Used *[id number] DBP- CARDIOVASCULAR CATHETER, STEALTH SOLID 08:22 [id number] Used SYSTEMS INC. 2.0MM *[id number] CARDIOVASCULAR VPR-GW-14 08:20 WIRE, FIRM (VIPER) 335 Used SYSTEMS INC. *[id number] INTRODUCER SET, 07:43 COOK INC. FR 5 [id number] *[id number] Used MICROPUNCTURE, STIFFENED CXI-4.0-35-135- 08:15 COOK/МАРИЯ CATHETER, FR4 CXI SUPPORT FR 4 Used P-NS-0 *[id number] CATHETER, CXI SUPPORT 08:45 COOK/МАРИЯ .018 [id number] Used STRAIGHT .018 150CM SHEATH, FR6 BETSEY 1 FLEXOR [id number] 08:14 COOK/МАРИЯ FR 6 Used 55CM *[id number] WIRE, GUIDE APPROACH HOT MILL ROLLER [id number] 08:44 COOK/МАРИЯ 300CM Used MICROWIRE *[id number] 08:19 DAIG/[employer]. [employer]ICAL ANGIOSEAL, FR6 VIP FR 6 Used *[id number] ENDOVASCULAR 08:37 STENT, EVERFLEX 6 X 40 120CM 6 X 40 [id number] Used COMPANY BALLOON, ADMIRAL EXTREME 5 [id number] 08:37 [employer] 130CM Used X 40 130CM *[id number] BALLOON, ADMIRAL EXTREME 5 X [id number] 08:26 [employer] 130CM Used 200 130CM *[id number] BALLOON, AMPHIRION DEEP [id number] 08:50 [employer] 150CM Used 2.5/3.0 X 210 *[id number] 07:43 MEDLINE IND[employer] PACK, CCL CUSTOM * Used *[id number] PSI-6F-11- 08:18 EVIAGENICS MEDICAL SHEATH, FR6.5 PRELUDE 11CM FR 6.5 038ACT Used *[id number] 08:14 [employer] MEDICAL WIRE, MARSH 260CM .035 260CM Used *[id number] TUBING, PRESSURE MONITORING [id number] 07:43 NAMIC PACER 72" Used 72" *[id number] 07:43 NYCOMED OMNIPAQUE, 300 MG, 150ML 150ML [id number] Used 07:43 NYCOMED OMNIPAQUE, 300 MG, 50ML 50ML [id number] Used [id number] 07:43 [employer] MEDICAL BLANKET,WARM AIR CCL * Used *[id number] 08:13 TERUMO MEDICAL SHEATH, FR5 TERUMO (10CM) FR 5 Used *[id number] WIRE, ANGLED GLIDE .035 [id number] 07:43 TERUMO MEDICAL/МАРИЯ 260CM Used 260CM *[id number] Equipment Model, Serial, Lot Number and Expiration Data Description Model Number Serial Number Lot Number Expiration Date ANGIOSEAL, FR6 VIP [id number] 09-04-2017 BALLOON, ADMIRAL EXTREME 5 X [id number] 11-04-2018 200 130CM CATHETER, FR4 CXI SUPPORT [id number] 11-04-2019 CATHETER, CXI SUPPORT [id number] 12-22-2019 STRAIGHT .018 150CM CATHETER, STEALTH SOLID 2.0MM [id number] 12-05-2018 SHEATH, FR6 BETSEY 1 FLEXOR [id number] 11-14-2019 55CM STENT, EVERFLEX 6 X 40 120CM [id number] 12-22-2018 WIRE, FIRM (VIPER) 335 [id number] 11-04-2018 WIRE, GUIDE APPROACH HOT MILL ROLLER [id number] 02-15-2022 MICROWIRE History: Current Medications Medication Dosage/Unit Route Frequency Last Date/Time Taken Statins (any) Beta Lee ASA CLONIDINE HEPARIN History: Allergies Allergy Reaction No Known Allergies History: Risk Factors Family History of Hypertension Dyslipidemia Previous NV Previous Heart Failure Premature CAD Yes Yes No No No Prior Valve Prior PCI Prior CABG Surgery No No No Cerebrovascular Peripheral Artery Chronic Lung On Dialysis Diabetes Disease Disease Disease No No Yes Yes Yes History: Other Disease Selection Items HTN History: Other Current Smoker Yes Labs Hgb (g/dl) Hct (%) WBC (l/cumm) Platelets (thousands) 11.60-17.00 35.00-51.00 4.00-11.00 150.00-450.00 8.8 25.8 7.1 221 Glucose (mg/dl) BUN (mg/dl) Creatinine (mg/dl) BUN:Creatinine (1:x) 74.00-106.00 7.00-18.00 0.50-1.30 10.00-20.00 233 20 1.7 11.8 Na (meq/l) K (meq/l) 136.00-145.00 3.50-5.10 137 3.4 INR (PTT:PT) 0.90-1.10 1 CPK-MB (ng/ML) 0.50-3.60 Not Drawn Medication Medication Total Dose (Bolus/Oral) Medication Total Dosage/Unit 1% XYLOCAINE 20 mL FENTANYL 100 mcg HEPARIN 8000 units HYDRALAZINE 20 mg VERSED 5 mg Medications (Bolus/Oral) Medication Time Given Dosage/Unit Administered By Reason VERSED 02/13/2017 8:06:12 AM 2 mg Michelle Jackson 2 mg VERSED given in lab by Michelle Jackson RN via Peripheral IV. FENTANYL 02/13/2017 8:07:06 AM 50 mcg Michelle Jackson 50 mcg FENTANYL given in lab by Michelle Jackson, ABDIEL via Peripheral IV. 1% XYLOCAINE 02/13/2017 8:09:30 AM 20 mL Gibson Amaral 20 mL 1% XYLOCAINE given in lab by Gibson Amaral in Right Groin via Subcutaneous. HEPARIN 02/13/2017 8:15:52 AM 5000 units Michelle Jackson 5000 units HEPARIN given in lab by Michelle Jackson, ABDIEL via Peripheral IV. VERSED 02/13/2017 8:24:50 AM 2 mg Adamy, Michelle 2 mg VERSED given in lab by Michelle Jackson, ABDIEL via Peripheral IV. FENTANYL 02/13/2017 8:24:54 AM 50 mcg Mukeshy, Michelle 50 mcg FENTANYL given in lab by Michelle Jackson, ABDIEL via Peripheral IV. HEPARIN 02/13/2017 8:41:10 AM 3000 units Marlee Jacksonfer 3000 units HEPARIN given in lab by Michelle Jackson, ABDIEL via Peripheral IV. HYDRALAZINE 02/13/2017 8:47:34 AM 10 mg Adamy, Michelle 10 mg HYDRALAZINE given in lab by Michelle Jackson, ABDIEL via Peripheral IV. VERSED 02/13/2017 8:53:07 AM 1 mg Adamy, Michelle 1 mg VERSED given in lab by Michelle Jackson RN via Peripheral IV. HYDRALAZINE 02/13/2017 8:54:52 AM 10 mg Mukeshy, Michelle 10 mg HYDRALAZINE given in lab by Michelle Jackson RN via Peripheral IV. Medication (Drip) Medication Time Given Dosage/Unit Concentration/Unit Diluent (ml) Solution HEPARIN DRIP STOPPED 02/13/2017 7:30:24 AM 0 units/hr 0 Patient arrived on 0 units/hr HEPARIN DRIP STOPPED. Pump/Drip Flow = 0 ml/hr using [Solution Name]. IV Solutions 02/13/2017 7:56:11 AM 50 mL (IV) 1000 NaCl .9 Patient arrived on IV Solutions via Central IV. Pump/Drip Flow using NaCl .9. SODIUM BICARBONATE 02/13/2017 7:56:10 AM 6 mL/hr 150 1000 NaCl .9 DRIP Patient arrived on 6 mL/hr SODIUM BICARBONATE DRIP. Pump/Drip Flow = 40 ml/hr using NaCl .9 with a co ncentration of 150 in 1000 ml. Initial Case Assessment Cardiovascular HR Rhythm NIBP Chest Pain 75 sinus 181/91 0 Edema Present Skin color Skin None Normal Warm Dry Circulatory - Right Pulses Femoral 3 Scale (0,1,2,3,4,d) Circulatory - Left Pulses Femoral 3 Scale (0,1,2,3,4,d) Circulatory - Lower Extremities Color Lower Right Color Lower Left Normal Normal Neurological State Oriented to time-place- Alert Moves all extremities person Respiration - General Respiration Rate SpO2 (%) O2 (lpm) (B/min) 8 100 2 Final Case Assessment Cardiovascular HR Rhythm NIBP Chest Pain 76 Sinus 206/94 0 Edema Present Skin color Skin None Normal Warm Dry Circulatory - Right Pulses Femoral 3 Scale (0,1,2,3,4,d) Circulatory - Left Pulses Femoral 3 Scale (0,1,2,3,4,d) Neurological State Oriented to time-place- Alert Moves all extremities person Respiration - General Respiration Rate O2 (lpm) (B/min) 16 0 Chronological Log Time Study Chronological Log 7:30:24 Patient arrived on 0 units/hr HEPARIN DRIP STOPPED. Pump/Drip Flow = 0 ml/hr using [Solutio n Name]. 7:45:37 Patient arrived via Bed. 7:45:41 Patient Name, D.O.B, / Armband Verified By R.N. 7:45:43 Consent signed by the physician and the patient and verified by the Radiation Control Worker staff. 7:45:48 Pre-op and post- op instructions given; patient acknowledges understanding of instructions. 7:45:51 Verbal Stimulation=2 Physical Stimulation=2 Airway=2 Respiration=2 TOTAL=8. (0=absent, 1=li mited, 2=present) 7:45:54 Presedation assessment performed by Radiation Control Worker RN. 7:55:59 Patient has been NPO for More than 6Hrs. 7:56:00 Skin Breakdown left great toe cyanotic with gangrene. Right heel wound. 7:56:03 Patient Warmer Placed on the Table. 7:56:04 Awa Prominences Protected 7:56:06 A port was noted in the L Upper Chest. Patient arrived on 6 mL/hr SODIUM BICARBONATE DRIP. Pump/Drip Flow = 40 ml/hr using NaCl .9 wit h a 7:56:10 concentration of 150 in 1000 ml. 7:56:11 Patient arrived on IV Solutions via Central IV. Pump/Drip Flow using NaCl .9. 7:56:21 History and physical on the chart or being dictated. Assessment: Initial Case, HR=75 BPM, Rhythm=sinus, ZZVP=994/91 mmhg, Chest Pain=0, Edema=None, Color=Normal, Skin = Warm, Dry Right Pulses: Femoral=3 Left Pulses: Femoral=3 7:56:22 Lower Right Extremities: Color=Normal Lower Left Extremities: Color=Normal Neurological: State=Alert, Ox3, PRINCE Respiration: Resp=8 B/min, YnK2=692 %, O2=2 lpm Vitals capture started with the following parameters, Patient=Adult, Interval=5 min, Initial Pre kgglz=171 mmHg, 7:56:30 Deflation Rate=5 mmHg, Cuff placed on Right Arm 7:57:46 HR=72 bpm, HKWH=640/91 mmhg, SpO2=97.0 %, Resp=16 B/min, Pain=0, Eveline=10, White=2 7:58:51 Reference ECG taken 8:00:17 Bilateral groins prepped with 2% chlorhexidine, and draped after a 3 minute waiting time. 8:02:10 HR=71 bpm, ESLA=451/88 mmhg, XjM9=522.0 %, Resp=12 B/min, Pain=0, Eveline=10, White=2 8:06:12 2 mg VERSED given in lab by Michelle Jackson RN via Peripheral IV. 8:07:06 50 mcg FENTANYL given in lab by Michelle Jackson RN via Peripheral IV. 8:07:11 HR=72 bpm, BOGU=587/86 mmhg, TiT2=659.0 %, Resp=13 B/min, Pain=0, Eveline=10, White=2 Time Out. Correct patient, correct procedure, correct physician, power injector not loaded with contrast with surgical 8:08:23 team present. Time Out Concurred by MD and individual staff in procedure. 8:08:31 Case Start 8:09:30 20 mL 1% XYLOCAINE given in lab by Gibson Amaral in Right Groin via Subcutaneous. 8:09:33 Access site was Right Femoral Artery. 8:09:59 A SHEATH, FR5 TERUMO (10CM) FR 5 was advanced into the Fem Art (right) using the Percutaneou s technique. A OMNI FLUSH 65CM CATHETER FR 5 was advanced over a wire. OMNIPAQUE, 300 MG, 50ML 50ML was used for 8:11:46 injections. 8:12:12 HR=68 bpm, PQBO=247/80 mmhg, WoZ1=750.0 %, Resp=13 B/min, Pain=0, Eveline=10, White=2 8:12:33 Fem L. Com (L7) angiogram, manually injected. 8:12:40 SFA (left) angiogram, manually injected. 8:12:57 SFA (left) angiogram, manually injected. 8:13:15 Popliteal L (L10) angiogram, manually injected. 8:13:49 Tib, Ant. (left) angiogram, manually injected. 8:14:57 A wire was inserted via Fem Art (right). 8:15:13 Tib, Post (Left) angiogram, manually injected. 8:15:52 5000 units HEPARIN given in lab by Michelle Jackson, RN via Peripheral IV. 8:16:07 A WIRE, MARSH 260CM .035 260CM was inserted via Fem Art (right). 8:16:21 Catheter was removed A SHEATH, FR6 BETSEY 1 FLEXOR 55CM FR 6 was exchanged in the Fem Art (right). This was necessary in order to 8:17:00 accomodate a larger catheter. 8:17:05 HR=71 bpm, SVTT=366/83 mmhg, QmZ1=132.0 %, Resp=14 B/min, Pain=0, Eveline=10, White=2 A CATHETER, FR4 CXI SUPPORT FR 4 was advanced over a wire. OMNIPAQUE, 300 MG, 50ML 50ML was used for 8:20:42 injections. 8:20:52 The previous wire was exchanged for a WIRE, FIRM (VIPER) 335. 8:22:11 HR=70 bpm, HUGL=667/80 mmhg, MwJ5=863.0 %, Resp=13 B/min, Pain=0, Eveline=10, White=2 8:23:08 Catheter was removed 8:23:37 SFA (left) angiogram, manually injected. 8:23:58 SFA (left) angiogram, manually injected. 8:24:50 2 mg VERSED given in lab by Michelle Jackson, RN via Peripheral IV. 8:24:54 50 mcg FENTANYL given in lab by Michelle Jackson, RN via Peripheral IV. 8:26:02 An CATHETER, STEALTH SOLID 2.0MM catheter was inserted into the SFA (left). 8:27:10 HR=67 bpm, ATPZ=351/77 mmhg, BmA8=889.0 %, Resp=11 B/min, Pain=0, Eveline=10, White=2 8:28:22 Athrectomy in progress. 8:30:52 Catheter was removed 8:31:23 A BALLOON, ADMIRAL EXTREME 5 X 200 130CM 130CM was inserted over WIRE, FIRM (VIPER) 335 via the SFA (left). 8:32:03 In the SFA (left) a BALLOON, ADMIRAL EXTREME 5 X 200 130CM 130CM was inflated to 8 atms for 120 seconds. 8:32:50 HR=68 bpm, JLWH=920/100 mmhg, TqJ4=621.0 %, Resp=10 B/min, Pain=0, Eveline=10, White=2 8:36:47 Balloon Removed. 8:37:20 HR=69 bpm, HLPF=228/100 mmhg, RhQ6=654.0 %, Resp=13 B/min, Pain=0, Eveline=10, White=2 8:39:09 A STENT, EVERFLEX 6 X 40 120CM 6 X 40 was deployed in the SFA (left). 8:39:16 Delivery device removed 8:39:20 A BALLOON, ADMIRAL EXTREME 5 X 40 130CM 130CM was inserted over WIRE, FIRM (VIPER) 335 via t he SFA (left). 8:40:10 In the SFA (left) a BALLOON, ADMIRAL EXTREME 5 X 40 130CM 130CM was inflated to 8 atms for 1 0 seconds. 8:40:47 Balloon Removed. A CATHETER, FR4 CXI SUPPORT FR 4 was advanced over a wire. OMNIPAQUE, 300 MG, 50ML 50ML was used for 8:40:51 injections. 8:41:10 3000 units HEPARIN given in lab by Michelle Jackson, RN via Peripheral IV. 8:41:50 SFA (left) angiogram, manually injected. 8:42:19 HR=69 bpm, ZSTF=184/101 mmhg, CvO3=663.0 %, Resp=16 B/min, Pain=0, Eveline=10, White=2 8:43:27 A WIRE, GUIDE APPROACH HOT MILL ROLLER MICROWIRE 300CM was inserted via Fem Art (right). 8:46:12 Wire removed 8:46:18 Tib, Ant. (left) angiogram, manually injected. 8:46:43 A WIRE, GUIDE APPROACH HOT MILL ROLLER MICROWIRE 300CM was inserted via Fem Art (right). 8:47:22 HR=69 bpm, MKMY=486/106 mmhg, JtQ4=744.0 %, Resp=16 B/min, Pain=0, Eveline=10, White=2 8:47:34 10 mg HYDRALAZINE given in lab by Michelle Jackson, ABDIEL via Peripheral IV. 8:47:51 Wire removed 8:48:33 A WIRE, GUIDE APPROACH HOT MILL ROLLER MICROWIRE 300CM was inserted via Fem Art (right). 8:48:46 Catheter was removed 8:50:02 Tib, Ant. (left) angiogram, manually injected. A BALLOON, AMPHIRION DEEP 2.5/3.0 X 210 150CM was inserted over WIRE, GUIDE APPROACH HOT MILL ROLLER MICROWI RE 8:51:34 300CM via the Peroneal (left). 8:52:06 In the Peroneal (left) a BALLOON, AMPHIRION DEEP 2.5/3.0 X 210 150CM was inflated to 8 atms for 180 seconds. 8:53:07 1 mg VERSED given in lab by Michelle Jackson, ABDIEL via Peripheral IV. 8:53:31 HR=71 bpm, JCDK=049/108 mmhg, Resp=19 B/min, Pain=0, Eveline=10, White=2 8:54:52 10 mg HYDRALAZINE given in lab by Michelle Jackson, RN via Peripheral IV. 8:56:34 Tib, Ant. (left) angiogram, manually injected. 8:57:15 Tib, Ant. (left) angiogram, manually injected. 8:57:22 HR=70 bpm, UILS=497/92 mmhg, EwE6=286.0 %, Resp=19 B/min, Pain=0, Eveline=10, White=2 8:58:12 Tib, Ant. (left) angiogram, manually injected. 8:59:49 Tib, Ant. (left) angiogram, manually injected. 9:01:00 Wire removed 9:01:15 A WIRE, MARSH 260CM .035 260CM was inserted via Fem Art (right). 9:02:23 HR=74 bpm, TWXT=937/94 mmhg, Resp=16 B/min, Pain=0, Eveline=10, White=2 9:02:49 ANGIOSEAL, FR6 VIP FR 6 placement in the Fem Art (right) 9:04:05 Case End 9:04:09 Case End 9:04:13 No case complications noted. 9:04:14 Cine recording checked. 9:04:17 Bedside Report will be given. 9:04:41 Bedside Report will be given. 9:04:45 Implantable Device card placed in patient's chart. 9:04:53 Sterile dressing applied to site Assessment: Final Case, HR=76 BPM, Rhythm=Sinus, VALJ=662/94 mmhg, Chest Pain=0, Edema=None, Color=Normal, Skin = Warm, Dry Right Pulses: Femoral=3 9:04:55 Left Pulses: Femoral=3 Neurological: State=Alert, Ox3, PRINCE Respiration: Resp=16 B/min, O2=0 lpm 9:07:26 HR=74 bpm, QRSR=105/95 mmhg, Resp=19 B/min, Pain=0, Eveline=10, White=2 9:11:25 Patient moved to stretcher 9:11:44 Vitals capture stopped. End Study - Contrast Media Used In Study Contrast Total Opened (mL) Total Used (mL) Total Wasted (mL) Omnipaque 200 80 120 End Study - Maximum Contrast Load Max Contrast Load (mL) 158.8 End Study - Radiation Exposure Fluoro Time (minutes) 14.0 End Study - Patient Disposition Complications Transferred To Interventional Outcome No Telemetry Bed successful
[2017-02-13] MEDS ORDERED: IOHEXOL 350 MG/ML 100 ML BTL (for Cath Lab) OTHER ONE (09:43)
[2017-02-13] MEDS ORDERED: CLOPIDOGREL 75 MG TAB PO ONE (10:30)
--- NOTE | 2017-02-13 11:51 | HHI.PR ---
Subjective Remarks Patient reports is feeling well. His believe the color in his toe is better. Objective Vitals Vital Signs Date Time Temp Pulse Resp B/P (MAP) Pulse Ox O2 Delivery O2 Flow Rate FiO2 02/13/17 09:18 97 Room Air 02/13/17 08:00 74 02/13/17 05:13 98.7 68 16 160/72 (101) 98 02/13/17 04:29 18 02/13/17 00:00 98.8 70 16 165/77 (106) 96 02/12/17 20:00 97.7 64 16 158/71 (100) 96 02/12/17 16:00 97.7 69 18 170/78 (108) 96 02/12/17 12:00 98.2 64 18 121/61 (81) 97 I/O 02/12/17 02/12/17 02/12/17 02/13/17 02/13/17 02/13/17 07:00 15:00 23:00 07:00 15:00 23:00 Intake Total 500 ml 1405 ml 400 ml Output Total 250 ml 250 ml 800 ml 700 ml Balance 250 ml -250 ml 605 ml -300 ml Intake Oral 1040 ml 400 ml IV Total 500 ml 365 ml Output Urine Total 250 ml 250 ml 800 ml 700 ml # Bowel Movements 0 Result Diagram: 02/13/17 0540 02/13/17 0540 Objective Remarks GENERAL: Patient appearing older than stated age, frail, in no apparent distress. SKIN: Left great toe is necrotic. Second and third toes also purple. CARDIOVASCULAR: Regular rate and rhythm without murmurs, gallops, or rubs. RESPIRATORY: Clear to auscultation. Breath sounds equal bilaterally. No wheezes , rales, or rhonchi. GASTROINTESTINAL: Abdomen soft, non-tender, nondistended. No guarding. MUSCULOSKELETAL: I am unable to palpate a dorsalis pedis pulse bilaterally. Left foot cooler compared to right. NEUROLOGICAL: Awake and alert. Normal speech. A/P Problem List: (1) Cellulitis ICD Code: L03.90 - Cellulitis, unspecified (2) Lower limb ischemia ICD Code: I99.8 - Other disorder of circulatory system (3) CKD (chronic kidney disease) ICD Code: N18.9 - Chronic kidney disease, unspecified (4) Diabetes ICD Code: E11.9 - Type 2 diabetes mellitus without complications (5) Tobacco abuse ICD Code: Z72.0 - Tobacco use Assessment and Plan 66-year-old male presented with left lower extremity ischemia and cellulitis. Left great toe is necrotic, second and third great toe purple. There is evidence of cellulitis on presentation. - Vascular surgery following. Status post angioplasty per vascular surgery - Continue heparin drip -Discontinue Rocephin. No further evidence of cellulitis - Aspirin, continue statin. Patient strongly counseled to quit using tobacco. -He will need outpatient follow-up with podiatry. - DC once cleared by Vascular surgery Diabetes: - Continue sliding scale insulin with Accu-Cheks - Patient is not eating much. Okay for regular diet. CKD: Unsure what his baseline is. Stable today - Follow renal functions. Avoid nephrotoxins. Multiple myeloma: He was evaluated by oncology at the outside hospital. No acute treatment indicated at this point. The recommendation. Outpatient follow -up is advised. Patient can continue same home medications. Chronic pain: Continue pain medication. Tobacco abuse: - Counseled patient on complete cessation given his significant vascular disease. GI prophylaxis: Stool softener PRN constipation. DVT PPx: Heparin Discharge Planning DC home tomorrow if cleared by vascular surgery. WIll need outpatient follow up with Podiatry. Patient is from Noel Pritchard MD Feb 13, 2017 11:50
[2017-02-13] MEDS ORDERED: HEPARIN-D5W 25,000 U/250 ML 250 ML IV PRN (12:00)
[2017-02-13] MEDS: cloNIDine HCL 0.1 MG TAB PO PRN (12:47)
[2017-02-13] MEDS: ATORVASTATIN 20 MG TAB PO SCH (20:53)
[2017-02-13] MEDS: TEMAZEPAM 15 MG CAP PO PRN (20:53)
[2017-02-14] VITALS: BP 145/71; PULSE 67; PULSE 68; RESP 18; TEMP 98; O2SAT 95
[2017-02-14 04:00] VITALS: BP 130/62; PULSE 64; PULSE 78; RESP 21; TEMP 97.3; O2SAT 96
[2017-02-14 07:25] LABS: BICARBONATE 28.1 MEQ/L (21.0-32.0); CALCIUM 8.4 MG/DL (8.5-10.1); CREATININE 1.62 MG/DL (0.60-1.30)
[2017-02-14 08:00] VITALS: BP 171/81; PULSE 73; RESP 17; TEMP 97.8; O2SAT 95
--- NOTE | 2017-02-14 08:03 | PD.VS.PN ---
Subjective Subjective/Hospital Course POD#1 s/p L SFA orbital atherectomy/NEUROPSYCHOLOGY DIVISION CHIEF/stent and peroneal NEUROPSYCHOLOGY DIVISION CHIEF foot feels better subjectively hasn't tried to bear weight on it Objective Vitals/I&O Date Time Temp Pulse Resp B/P (MAP) Pulse Ox O2 Delivery O2 Flow Rate FiO2 02/14/17 04:00 Room Air 02/14/17 04:00 78 02/14/17 04:00 97.3 64 21 130/62 (84) 96 02/14/17 00:00 98.0 68 18 145/71 (95) 95 02/14/17 00:00 67 02/13/17 20:00 98.7 66 17 124/65 (84) 96 02/13/17 20:00 62 02/13/17 17:34 99 21 02/13/17 17:22 98.3 65 20 115/57 (76) 99 02/13/17 17:20 98.3 65 20 115/57 (76) 99 02/13/17 12:05 98.3 70 20 204/92 (129) 96 193/78 (116) 02/13/17 09:18 97 Room Air 02/14/17 02/14/17 02/14/17 07:00 15:00 23:00 Intake Total 500 ml Output Total 600 ml Balance -100 ml Physical Exam R groin (access) ok L foot warm, toe ischemia stable Laboratory Laboratory Tests Test 02/13/17 17:14 02/13/17 18:30 02/14/17 00:30 02/14/17 06:36 Activated Partial Thromboplast Time 41.3 43.5 46.9 43.6 Blood Urea Nitrogen 18 Creatinine 1.62 Random Glucose 182 Calcium Level 8.4 Sodium Level 137 Potassium Level 3.0 Chloride Level 102 Carbon Dioxide Level 28.1 Anion Gap 7 Estimat Glomerular Filtration Rate 43 Assessment and Plan Plan POD#1 s/p L LE revascularization, foot warmer and subjectively better 1. Continue aggressive antiplatelet (ASA/plavix) 2. WBAT 3. Ok to d/c today and RTC next week to my clinic Gibson Amaral MD FASC RPVI harvesting supervisor [facility] [phone] Gibson Amaral MD Feb 14, 2017 08:03
[2017-02-14] MEDS: CALCITRIOL 0.25 MCG CAP PO SCH (08:52)
[2017-02-14] MEDS: CARVEDILOL 6.25 MG TAB PO SCH ×2 (08:52→16:21)
[2017-02-14] MEDS: PANTOPRAZOLE SOD 40 MG DELAYED RELEASE TAB PO SCH (08:53)
[2017-02-14] MEDS: CLOPIDOGREL 75 MG TAB PO SCH (08:53)
[2017-02-14] MEDS: DOCUSATE SODIUM 50 MG/SENNA 8.6 MG TAB PO SCH ×2 (08:53→20:55)
[2017-02-14] MEDS: ACYCLOVIR 200 MG CAP PO SCH ×2 (08:53→20:55)
[2017-02-14] MEDS: ASPIRIN EC 81 MG TABEC PO SCH (08:54)
[2017-02-14] MEDS: SODIUM CHLORIDE 0.9% FLUSH 10 ML FLUSH IV FLUSH SCH ×2 (08:55→20:55)
[2017-02-14] MEDS: INSULIN ASPART SUPPLEMENTAL SCALE SQ SCH ×4 (08:55→20:56)
--- NOTE | 2017-02-14 10:10 | MP ---
cc: KEELEY AMARAL MD DATE OF SURGERY 02/13/2017 PREOPERATIVE DIAGNOSIS Left lower extremity tissue loss peripheral vascular disease. POSTOPERATIVE DIAGNOSIS Left lower extremity tissue loss peripheral vascular disease. PROCEDURE 1. Left lower extremity angiogram. 2. Left SFA orbital atherectomy with angioplasty and stent with a 6 x 40 self-expanding stent. 3. Left peroneal artery angioplasty with a 2-2.5 mm tapered balloon. 4. Right common femoral Angio-Seal. MEDICATIONS Keeley Amaral MD ANESTHESIA Local with sedation INDICATIONS Mr. Freeman is a 66-year gentleman with profound left lower extremity tissue loss. He has a week palpable popliteal pulse and no pedal pulses. He is taken to the operating room for angiographic evaluation and treatment. There is no prior catheter-based imaging available for my review. DESCRIPTION OF PROCEDURE Informed consent obtained from the patient. He was taken to the operating room, placed supine on the operating room table and an appropriate time-out was taken to ensure the patient's identity, operative site and planned procedure. The administration of antibiotics was not necessary as this is a clean presentation without planned implantation of any foreign object. Everyone in the room agreed with the time-out and we proceeded. His bilateral groin was prepped and draped and the right groin anesthetized with 1% lidocaine. A 21 gauge micropuncture needle was used to accessed the left to right common femoral artery. This was exchanged using Seldinger technique for micropuncture sheath through which a 0.035 Glidewire was introduced. The micropuncture sheath was exchanged for a 5-American sheath and a VCF catheter was placed over the wires to the sheath. The Glidewire and VCF catheter were navigated down to the left common femoral artery and a left lower extremity arteriograms was obtained. The patient was systemically heparinized with 5000 units of IV heparin and approximately 30 minutes, later 3000 units were administered. A 0.035 Guajardo wire was advanced to the VCF catheter and the VCF catheter and 5-American sheath removed and a 6-American 55 cm Aftab sheath was introduced. The CXI catheter was advanced over the Guajardo, the Guajardo was exchanged for a POST CLOSER wire. Using the POST CLOSER and CXI, we were able to navigate into the popliteal artery. The CXI was used to change out the POST CLOSER wire for a Viper wire and the orbital atherectomy device was brought up on the field and the SFA was atherectomy without difficulty and after atherectomy, an angioplasty was performed with a 5 x 200 balloon. The completion angiogram showed excellent result except for one proximal area of significant dissection that was treated with a 6 x 40 stent and postdilated with a 5 mm balloon. At the completion, angiogram showed excellent results without any recoil extravasation. We then focused our attention towards the infrapopliteal segment. The Glidewire was used to navigate into the proximal TP trunk and the CXI catheter was advanced over this. The Glidewire was then exchanged for a POST CLOSER wire and this was used to recanalize the peroneal artery. The 0.035 CXI catheter was exchanged for an 0.018 CXI catheter and this confirmed we were in the peroneal artery distally. The POST CLOSER wire was reintroduced and the entire peroneal artery was angioplasty with a 2-2.5 mm tapered balloon. The completion angiogram showed an excellent result without any recoil extravasation. The wire, catheter, and sheath were removed and the groin was closed with Angio-Seal. There were no complications and I was present and scrubbed for the entire procedure. INTERPRETATION The patient has a patent common femoral artery and profunda. The SFA has multiple high-grade stenoses that were successfully atherectomized and angioplastied with one residual dissection that was treated with a 6 x 40 stent. All three tibial vessels were occluded and the peroneal artery was successfully recanalized with a good result with angioplasty. MD LYDIA Stewart/HALLIE /7:01 AM /9:47 AM
[2017-02-14 12:00] VITALS: BP 134/64; PULSE 73; RESP 17; TEMP 97.8; O2SAT 96
[2017-02-14] MEDS ORDERED: POTASSIUM CHLORIDE 10 MEQ CONTROLLED RELEASE TAB PO ONE (12:15)
--- NOTE | 2017-02-14 15:56 | HHI.PR ---
Subjective Remarks at bedside. Pain controlled. states patient is not eating because he does not like the food. denies cp/sob. afebrile. Objective Vitals Vital Signs Date Time Temp Pulse Resp B/P (MAP) Pulse Ox O2 Delivery O2 Flow Rate FiO2 02/14/17 12:00 97.8 73 17 134/64 (87) 96 02/14/17 08:00 97.8 73 17 171/81 (111) 95 02/14/17 04:00 Room Air 02/14/17 04:00 78 02/14/17 04:00 97.3 64 21 130/62 (84) 96 02/14/17 00:00 98.0 68 18 145/71 (95) 95 02/14/17 00:00 67 02/13/17 20:00 98.7 66 17 124/65 (84) 96 02/13/17 20:00 62 02/13/17 17:34 99 21 02/13/17 17:22 98.3 65 20 115/57 (76) 99 02/13/17 17:20 98.3 65 20 115/57 (76) 99 I/O 02/13/17 02/13/17 02/13/17 02/14/17 02/14/17 02/14/17 07:00 15:00 23:00 07:00 15:00 23:00 Intake Total 400 ml 600 ml 500 ml 500 ml Output Total 700 ml 1300 ml 200 ml 600 ml Balance -300 ml -700 ml 300 ml -100 ml Intake Oral 400 ml 600 ml 500 ml 500 ml Output Urine Total 700 ml 1300 ml 200 ml 600 ml # Bowel Movements 0 0 0 0 Result Diagram: 02/13/17 0540 02/14/17 0636 Objective Remarks GENERAL: Patient appearing older than stated age, frail, in no apparent distress. SKIN: Left great toe is necrotic. Second and third toes also purple. CARDIOVASCULAR: Regular rate and rhythm without murmurs, gallops, or rubs. RESPIRATORY: Clear to auscultation. Breath sounds equal bilaterally. No wheezes , rales, or rhonchi. GASTROINTESTINAL: Abdomen soft, non-tender, nondistended. No guarding. MUSCULOSKELETAL: I am unable to palpate a dorsalis pedis pulse bilaterally. Left foot cooler compared to right. NEUROLOGICAL: Awake and alert. Normal speech. Medications and IVs Current Medications Medications (Trade) Dose Ordered Sig/Pa Route Start Time Stop Time Status Last Admin (NS Flush) 2 ml UNSCH PRN IV FLUSH 02/09/17 21:45 (NS Flush) 2 ml BID IV FLUSH 02/10/17 09:00 02/14/17 08:55 (Zofran Inj) 4 mg Q6H PRN IVP 02/09/17 21:45 (Tylenol) 650 mg Q6H PRN PO 02/09/17 21:45 (Morphine Inj) 2 mg Q3H PRN IV PUSH 02/09/17 21:45 (Pat-Colace) 1 tab BID PO 02/10/17 09:00 02/14/17 08:53 (Milk Of Magnesia Liq) 30 ml Q12H PRN PO 02/09/17 21:45 (Senokot) 17.2 mg Q12H PRN PO 02/09/17 21:45 (Dulcolax Supp) 10 mg DAILY PRN RECTAL 02/09/17 21:45 (Lactulose Liq) 30 ml DAILY PRN PO 02/09/17 21:45 (D50w (Vial) Inj) 50 ml UNSCH PRN IV PUSH 02/09/17 23:00 (Glucagon Inj) 1 mg UNSCH PRN OTHER 02/09/17 23:00 (NovoLOG SUPPLEMENTAL SCALE) 1 ACHS SLIDING SCALE SQ 02/10/17 08:00 02/14/17 12:55 (Zovirax) 400 mg BID PO 02/10/17 09:00 02/14/17 08:53 (Lipitor) 20 mg HS PO 02/10/17 21:00 02/13/17 20:53 (Tessalon) 100 mg BID PRN PO 02/09/17 23:00 02/10/17 17:34 (Rocaltrol) 0.25 mcg DAILY PO 02/10/17 09:00 02/14/17 08:52 (Coreg) 6.25 mg BIDAC PO 02/10/17 07:00 02/14/17 08:52 (Roxicodone) 10 mg Q6H PRN PO 02/09/17 23:00 02/14/17 10:48 (Protonix) 40 mg DAILY PO 02/10/17 09:00 02/14/17 08:53 (OxyCONTIN CR) 30 mg BID PRN PO 02/09/17 23:00 02/11/17 22:41 (Restoril) 30 mg HS PRN PO 02/09/17 23:00 02/13/17 20:53 (Ecotrin Ec) 81 mg DAILY PO 02/11/17 09:00 02/12/17 09:02 (Catapres) 0.1 mg Q6H PRN PO 02/11/17 03:00 02/13/17 12:47 Sodium Bicarbonate 50 meq/Dextrose 1,050 ml @ 42 mls/hr Q24H IV 02/11/17 23:00 02/13/17 20:55 (Apresoline Inj) 10 mg Q3H PRN IV PUSH 02/13/17 09:15 02/13/17 08:47 Heparin Sodium/ Dextrose 250 ml @ 9.72 mls/hr TITRATE PRN IV 02/13/17 12:00 02/14/17 04:30 (Plavix) 75 mg DAILY PO 02/14/17 09:00 02/14/17 08:53 (Levemir Inj) 5 units Q12HR SQ 02/14/17 21:00 A/P Problem List: (1) Cellulitis ICD Code: L03.90 - Cellulitis, unspecified (2) Lower limb ischemia ICD Code: I99.8 - Other disorder of circulatory system (3) CKD (chronic kidney disease) ICD Code: N18.9 - Chronic kidney disease, unspecified (4) Diabetes ICD Code: E11.9 - Type 2 diabetes mellitus without complications (5) Tobacco abuse ICD Code: Z72.0 - Tobacco use Assessment and Plan 66-year-old male presented with left lower extremity ischemia and cellulitis. Left great toe is necrotic, second and third great toe purple. There is evidence of cellulitis on presentation. - Vascular surgery following. Status post angioplasty per vascular surgery - Continue heparin drip -Discontinue Rocephin. No further evidence of cellulitis - Aspirin, continue statin. Patient strongly counseled to quit using tobacco. -He will need outpatient follow-up with podiatry. - DC once cleared by Vascular surgery 02/14 Patient cleared by vascular surgery for DC. Diabetes: - Continue sliding scale insulin with Accu-Cheks - Patient is not eating much. Okay for regular diet. 02/14 Blood sugars severely elevated consistently in the 200's range. Will start insulin Levemir 5 units Sq BID. CKD: Unsure what his baseline is. Stable today - Follow renal functions. Avoid nephrotoxins. Multiple myeloma: He was evaluated by oncology at the outside hospital. No acute treatment indicated at this point. The recommendation. Outpatient follow -up is advised. Patient can continue same home medications. Chronic pain: Continue pain medication. Tobacco abuse: - Counseled patient on complete cessation given his significant vascular disease. Generalized weakness: Consut PT. GI prophylaxis: Stool softener PRN constipation. Discharge Planning Pending PT eval and improvement of blood sugars Gulshan Sandoval MD Feb 14, 2017 15:56
[2017-02-14 16:00] VITALS: BP 155/74; PULSE 74; RESP 18; TEMP 98.1; O2SAT 94
[2017-02-14 20:00] VITALS: BP 174/79; PULSE 68; PULSE 71; RESP 18; TEMP 100; O2SAT 93
[2017-02-14] MEDS: ATORVASTATIN 20 MG TAB PO SCH (20:55)
[2017-02-14] MEDS: SODIUM BICARBONATE 8.4% INJ 50 MEQ in DEXTROSE 5% IN WATE 1000ML INJ 1,000 ML IV SCH ×2 (20:56)
[2017-02-14] MEDS ORDERED: INSULIN DETEMIR 100 UNITS/ML VIAL SQ SCH (21:00)
[2017-02-14] MEDS: TEMAZEPAM 15 MG CAP PO PRN (21:01)
[2017-02-14] MEDS: oxyCODONE HCL 10 MG CONTROLLED RELEASE TAB PO PRN (21:01)
[2017-02-15] VITALS (9 sets, daily range): BP systolic 162–179; BP diastolic 72–85; PULSE 72–122; RESP 18–20; TEMP 97.6–98.7; O2SAT 93–96
[2017-02-15] MEDS: cloNIDine HCL 0.1 MG TAB PO PRN (00:26)
[2017-02-15 06:20] LABS: HEMATOCRIT 24.9 % (39.0-51.0); HEMOGLOBIN 8.5 GM/DL (13.0-17.0); MEAN CELL VOLUME 91.6 FL (80.0-100.0); MEAN CORPUSCULAR HEMOGLOBIN 31.2 PG (27.0-34.0); MEAN CORPUSCULAR HGB CONC 34.1 % (32.0-36.0); MEAN PLATELET VOLUME 7.9 FL (7.0-11.0); PLATELET COUNT 242 TH/MM3 (150-450); RED BLOOD COUNT 2.72 MIL/MM3 (4.50-5.90); RED CELL DISTRIBUTION WIDTH 13.5 % (11.6-17.2); WHITE BLOOD COUNT 9.2 TH/MM3 (4.0-11.0)
[2017-02-15] MEDS ORDERED: CLOPIDOGREL 75 MG TAB PO SCH (09:00)
[2017-02-15] MEDS: INSULIN ASPART SUPPLEMENTAL SCALE SQ SCH ×4 (10:06→22:32)
[2017-02-15] MEDS: PANTOPRAZOLE SOD 40 MG DELAYED RELEASE TAB PO SCH (10:06)
[2017-02-15] MEDS: CARVEDILOL 6.25 MG TAB PO SCH ×2 (10:06→16:59)
[2017-02-15] MEDS: DOCUSATE SODIUM 50 MG/SENNA 8.6 MG TAB PO SCH ×2 (10:06→22:30)
[2017-02-15] MEDS: SODIUM CHLORIDE 0.9% FLUSH 10 ML FLUSH IV FLUSH SCH ×2 (10:07→22:32)
[2017-02-15] MEDS: CLOPIDOGREL 75 MG TAB PO SCH (10:08)
[2017-02-15] MEDS: ASPIRIN EC 81 MG TABEC PO SCH (10:08)
[2017-02-15] MEDS: CALCITRIOL 0.25 MCG CAP PO SCH (10:08)
[2017-02-15] MEDS: ACYCLOVIR 200 MG CAP PO SCH ×2 (10:12→22:30)
[2017-02-15] MEDS: hydrALAZINE HCL 20 MG/ML VIAL IV PUSH PRN (12:11)
[2017-02-15] MEDS ORDERED: LIPI20TA PO (14:08)
[2017-02-15] MEDS ORDERED: LEVEMIR SQ (14:08)
[2017-02-15] MEDS ORDERED: PLAV75TA29 PO (14:08)
--- NOTE | 2017-02-15 14:27 | HHI.DCPOC ---
Discharge Care Plan Diagnosis: (1) Lower limb ischemia (2) CKD (chronic kidney disease) (3) Tobacco abuse (4) Diabetes (5) Cellulitis Goals to Promote Your Health * To prevent worsening of your condition and complications * To maintain your health at the optimal level Directions to Meet Your Goals Take your medications as prescribed Follow your dietary instruction Follow activity as directed Keep your appointments as scheduled Take your immunizations and boosters as scheduled If your symptoms worsen call your PCP, if no PCP go to Urgent Care Center or Emergency Room Smoking is Dangerous to Your Health. Avoid second hand smoke Call the 24-hour hour crisis hotline for domestic abuse at Gulshan Sandoval MD Feb 15, 2017 14:27
--- NOTE | 2017-02-15 14:34 | HHI.DS ---
Discharge Summary Admission Date Feb 09, 2017 at 21:14 Discharge Date: Feb 15, 2017 Admitting Diagnosis Left lower limb ischemia. (1) Cellulitis ICD Code: L03.90 - Cellulitis, unspecified Diagnosis: Principal (2) Lower limb ischemia ICD Code: I99.8 - Other disorder of circulatory system Diagnosis: Principal (3) CKD (chronic kidney disease) ICD Code: N18.9 - Chronic kidney disease, unspecified Diagnosis: Principal (4) Diabetes ICD Code: E11.9 - Type 2 diabetes mellitus without complications Diagnosis: Principal (5) Tobacco abuse ICD Code: Z72.0 - Tobacco use Diagnosis: Principal Procedures sp LLE aortogram with runoff Brief History - From Admission 66-year-old male with a medical history significant for multiple myeloma, hypertension, diabetes, COPD, GERD, tobacco abuser, and previous prostate cancer. The patient was transferred from [facility]. Apparently he was admitted there for discolored left first toe. He stopped his Toprol about 3 weeks prior. He had a small abrasion on the distal tip of the toe. This has not been healing and he continued to experience pain. At the outside hospital, the patient was evaluated by vascular surgery. 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 Give in his kidney functions, patient could not have CTA. Patient was transferred to [facility] for definitive treatment with vascular surgery consult. Records from the outside hospital extensively reviewed. He was being treated for cellulitis and has been on a heparin drip. Currently the patient has no other complaints except for discomfort at the left foot with movement. CBC/BMP: 02/15/17 0600 02/14/17 0636 Significant Findings Laboratory Tests Test 02/13/17 05:40 02/13/17 17:14 02/13/17 18:30 02/14/17 00:30 Red Blood Count 2.82 MIL/MM3 (4.50-5.90) Hemoglobin 8.8 GM/DL (13.0-17.0) Hematocrit 25.8 % (39.0-51.0) Activated Partial Thromboplast Time 44.6 SEC (24.3-30.1) 41.3 SEC (24.3-30.1) 43.5 SEC (24.3-30.1) 46.9 SEC (24.3-30.1) Blood Urea Nitrogen 20 MG/DL (7-18) Creatinine 1.71 MG/DL (0.60-1.30) Random Glucose 233 MG/DL (74-106) Potassium Level 3.4 MEQ/L (3.5-5.1) Estimat Glomerular Filtration Rate 41 ML/MIN (>89) Test 02/14/17 06:36 02/15/17 06:00 Activated Partial Thromboplast Time 43.6 SEC (24.3-30.1) Creatinine 1.62 MG/DL (0.60-1.30) Random Glucose 182 MG/DL (74-106) Calcium Level 8.4 MG/DL (8.5-10.1) Potassium Level 3.0 MEQ/L (3.5-5.1) Estimat Glomerular Filtration Rate 43 ML/MIN (>89) Red Blood Count 2.72 MIL/MM3 (4.50-5.90) Hemoglobin 8.5 GM/DL (13.0-17.0) Hematocrit 24.9 % (39.0-51.0) PE at Discharge GENERAL: Patient appearing older than stated age, frail, in no apparent distress. SKIN: Left great toe is necrotic. Second and third toes also purple. CARDIOVASCULAR: Regular rate and rhythm without murmurs, gallops, or rubs. RESPIRATORY: Clear to auscultation. Breath sounds equal bilaterally. No wheezes , rales, or rhonchi. GASTROINTESTINAL: Abdomen soft, non-tender, nondistended. No guarding. MUSCULOSKELETAL: I am unable to palpate a dorsalis pedis pulse bilaterally. Left foot cooler compared to right. NEUROLOGICAL: Awake and alert. Normal speech. Pt Condition on Discharge: Stable Discharge Disposition: Discharge to SNF Discharge Time: > 30 minutes Discharge Instructions DIET: Follow Instructions for: Diabetic Diet Activities you can perform: See Additionl Instruction Other Activity Instructions: OOB with assistance As per Pt recommendations Follow up Referrals: Vascular Surgery @ Vascular Surgery with Gibson Amaral MD New Medications: Clopidogrel (Plavix) 75 Mg Tab 75 MG PO DAILY for Blood Clot Prevention, #31 TAB Insulin Detemir Inj (Levemir Inj) 1,000 unit/ 10 ML Vial 5 UNITS SQ Q12HR for Blood Sugar Management, #1 VIAL Do not mix with any other Insulin. Continued Medications: Acetaminophen (Tylenol Extra Strength) 500 Mg Tablet PO Atorvastatin (Lipitor) 20 Mg Tab 20 MG PO HS for Cholesterol Management, #30 TAB 0 Refills (This prescription has been renewed) Calcitriol (Calcitriol) 0.25 Mcg Cap 0.25 MCG PO DAILY for Calcium Supplement, #30 CAP 0 Refills Carvedilol (Coreg) 6.25 Mg Tab 6.25 MG PO BIDAC, #60 TAB 0 Refills Clonidine (Clonidine) 0.2 Mg Tab 0.2 MG PO Q2HR PRN for PRN, #60 TAB 0 Refills Insulin Lispro (Humalog) 100 Unit/Ml Cartridge ACHS SLIDING SCALE Ondansetron (Zofran) 4 Mg Tab 4 MG PO BID PRN for NAUSEA OR VOMITING, TAB 0 Refills Oxycodone (Oxycodone) 10 Mg Tab 10 MG PO QID PRN for PRN, TAB 0 Refills Pantoprazole (Protonix) 40 Mg Tab 40 MG PO DAILY for Reflux, #30 TAB 0 Refills Temazepam (Restoril) 30 Mg Cap 30 MG PO HS PRN for INSOMNIA, #30 CAP 0 Refills Discontinued Medications: Acyclovir (Acyclovir) 400 Mg Tab 400 MG PO BID for Mgmt Viral Infection, TAB 0 Refills Benzonatate (Tessalon Perles) 100 Mg Cap 100 MG PO BID PRN for COUGH, CAP 0 Refills Carvedilol (Coreg) 3.125 Mg Tab MG PO BID, #60 TAB 0 Refills Ceftriaxone in Is-Osm Dextrose (Ceftriaxone 1 gm-D5w Bag) 1 Gram/50 Ml Piggyback IV DAILY Heparin Sod,Porcine/0.9 % NaCl (Heparin 2,500 Unit/250 ml-Ns) 2,500 Unit/250 Ml (10 Unit/Ml) Iv.soln IV Promethazine (Phenergan) 25 Mg Tablet 25 MG PO EVERY 6HRS, #1 TAB 0 Refills Gulshan Sandoval MD Feb 15, 2017 14:34
--- NOTE | 2017-02-15 20:28 | HHI.PR ---
Subjective Remarks Patient denies cp/sob. Afebrile Feels weak Objective Vitals Vital Signs Date Time Temp Pulse Resp B/P (MAP) Pulse Ox O2 Delivery O2 Flow Rate FiO2 02/15/17 16:37 76 02/15/17 16:30 Room Air 02/15/17 16:04 97.9 122 18 172/78 (109) 93 02/15/17 12:38 76 02/15/17 12:08 97.8 73 20 162/72 (102) 96 02/15/17 12:00 Room Air 02/15/17 11:22 21 02/15/17 08:00 98.1 77 18 171/79 (109) 95 02/15/17 08:00 72 02/15/17 08:00 Room Air 02/15/17 04:00 97.9 82 18 168/78 (108) 94 02/15/17 04:00 Room Air 02/15/17 04:00 75 02/15/17 00:00 Room Air 02/15/17 00:00 97.6 79 18 179/85 (116) 96 02/15/17 00:00 72 I/O 02/14/17 02/14/17 02/14/17 02/15/17 02/15/17 02/15/17 07:00 15:00 23:00 07:00 15:00 23:00 Intake Total 500 ml 2010 ml 100 ml 120 ml Output Total 600 ml 350 ml 425 ml Balance -100 ml 2010 ml -250 ml -305 ml Intake Oral 500 ml 960 ml 100 ml 120 ml IV Total 1050 ml Output Urine Total 600 ml 350 ml 425 ml # Voids 4 1 # Bowel Movements 0 1 0 Result Diagram: 02/15/17 0600 02/14/17 0636 Objective Remarks GENERAL: Patient appearing older than stated age, frail, in no apparent distress. SKIN: Left great toe is necrotic. Second and third toes also purple. CARDIOVASCULAR: Regular rate and rhythm without murmurs, gallops, or rubs. RESPIRATORY: Clear to auscultation. Breath sounds equal bilaterally. No wheezes , rales, or rhonchi. GASTROINTESTINAL: Abdomen soft, non-tender, nondistended. No guarding. MUSCULOSKELETAL: I am unable to palpate a dorsalis pedis pulse bilaterally. Left foot cooler compared to right. NEUROLOGICAL: Awake and alert. Normal speech. Procedures sp LLE aortogram with runoff Medications and IVs Current Medications Medications (Trade) Dose Ordered Sig/Pa Route Start Time Stop Time Status Last Admin (NS Flush) 2 ml UNSCH PRN IV FLUSH 02/09/17 21:45 (NS Flush) 2 ml BID IV FLUSH 02/10/17 09:00 02/15/17 10:07 (Zofran Inj) 4 mg Q6H PRN IVP 02/09/17 21:45 (Tylenol) 650 mg Q6H PRN PO 02/09/17 21:45 (Morphine Inj) 2 mg Q3H PRN IV PUSH 02/09/17 21:45 (Pat-Colace) 1 tab BID PO 02/10/17 09:00 02/15/17 10:06 (Milk Of Magnesia Liq) 30 ml Q12H PRN PO 02/09/17 21:45 (Senokot) 17.2 mg Q12H PRN PO 02/09/17 21:45 (Dulcolax Supp) 10 mg DAILY PRN RECTAL 02/09/17 21:45 (Lactulose Liq) 30 ml DAILY PRN PO 02/09/17 21:45 (D50w (Vial) Inj) 50 ml UNSCH PRN IV PUSH 02/09/17 23:00 (Glucagon Inj) 1 mg UNSCH PRN OTHER 02/09/17 23:00 (NovoLOG SUPPLEMENTAL SCALE) 1 ACHS SLIDING SCALE SQ 02/10/17 08:00 02/15/17 17:31 (Zovirax) 400 mg BID PO 02/10/17 09:00 02/15/17 10:12 (Lipitor) 20 mg HS PO 02/10/17 21:00 02/14/17 20:55 (Tessalon) 100 mg BID PRN PO 02/09/17 23:00 02/10/17 17:34 (Rocaltrol) 0.25 mcg DAILY PO 02/10/17 09:00 02/15/17 10:08 (Coreg) 6.25 mg BIDAC PO 02/10/17 07:00 02/15/17 16:59 (Roxicodone) 10 mg Q6H PRN PO 02/09/17 23:00 02/15/17 17:00 (Protonix) 40 mg DAILY PO 02/10/17 09:00 02/15/17 10:06 (OxyCONTIN CR) 30 mg BID PRN PO 02/09/17 23:00 02/14/17 21:01 (Restoril) 30 mg HS PRN PO 02/09/17 23:00 02/14/17 21:01 (Ecotrin Ec) 81 mg DAILY PO 02/11/17 09:00 02/15/17 10:08 (Catapres) 0.1 mg Q6H PRN PO 02/11/17 03:00 02/15/17 00:26 (Apresoline Inj) 10 mg Q3H PRN IV PUSH 02/13/17 09:15 02/15/17 12:11 (Plavix) 75 mg DAILY PO 02/14/17 09:00 02/15/17 10:08 (Levemir Inj) 5 units Q12HR SQ 02/15/17 21:00 A/P Problem List: (1) Cellulitis ICD Code: L03.90 - Cellulitis, unspecified (2) Lower limb ischemia ICD Code: I99.8 - Other disorder of circulatory system (3) CKD (chronic kidney disease) ICD Code: N18.9 - Chronic kidney disease, unspecified (4) Diabetes ICD Code: E11.9 - Type 2 diabetes mellitus without complications (5) Tobacco abuse ICD Code: Z72.0 - Tobacco use Assessment and Plan 66-year-old male presented with left lower extremity ischemia and cellulitis. Left great toe is necrotic, second and third great toe purple. There is evidence of cellulitis on presentation. - Vascular surgery following. Status post angioplasty per vascular surgery - Continue heparin drip -Discontinue Rocephin. No further evidence of cellulitis - Aspirin, continue statin. Patient strongly counseled to quit using tobacco. -He will need outpatient follow-up with podiatry. - DC once cleared by Vascular surgery 02/14 Patient cleared by vascular surgery for DC. Diabetes: - Continue sliding scale insulin with Accu-Cheks - Patient is not eating much. Okay for regular diet. 02/14 Blood sugars severely elevated consistently in the 200's range. Will start insulin Levemir 5 units Sq BID. 02/15 Blood sugars much improved. Also Discontinued D5w with bicarbonate. CKD: Unsure what his baseline is. Stable today - Follow renal functions. Avoid nephrotoxins. Multiple myeloma: He was evaluated by oncology at the outside hospital. No acute treatment indicated at this point. The recommendation. Outpatient follow -up is advised. Patient can continue same home medications. Chronic pain: Continue pain medication. Tobacco abuse: - Counseled patient on complete cessation given his significant vascular disease. HTN: Uncontrolled. continue Coreg, will ad amlodipine 10 mg po daily. Generalized weakness: Consut PT. GI prophylaxis: Stool softener PRN constipation. Discharge Planning DC pending placement and improvement in blood sugar. Problem Qualifiers (1) Cellulitis: Qualified Codes: L03.116 - Cellulitis of left lower limb (2) CKD (chronic kidney disease): Qualified Codes: N18.3 - Chronic kidney disease, stage 3 (moderate) (3) Diabetes: Qualified Codes: E11.51 - Type 2 diabetes mellitus with diabetic peripheral angiopathy without gangrene Gulshan Sandoval MD Feb 15, 2017 20:28
[2017-02-15] MEDS ORDERED: AMLO10TA2 PO (20:29)
[2017-02-15] MEDS ORDERED: INSULIN DETEMIR 100 UNITS/ML VIAL SQ SCH (21:00)
[2017-02-15] MEDS: ATORVASTATIN 20 MG TAB PO SCH (22:30)
[2017-02-15] MEDS: oxyCODONE HCL 10 MG CONTROLLED RELEASE TAB PO PRN (22:31)
[2017-02-15] MEDS: INSULIN DETEMIR 100 UNITS/ML VIAL SQ SCH (22:34)
[2017-02-16] VITALS (13 sets, daily range): BP systolic 122–154; BP diastolic 59–76; PULSE 71–83; RESP 16–21; TEMP 97.8–98.7; O2SAT 95–100
[2017-02-16] MEDS: CARVEDILOL 6.25 MG TAB PO SCH ×2 (06:33→17:56)
[2017-02-16] MEDS: INSULIN ASPART SUPPLEMENTAL SCALE SQ SCH ×4 (08:00→20:26)
[2017-02-16 08:14] LABS: MEAN CELL VOLUME 91.6 FL (80.0-100.0); MEAN CORPUSCULAR HEMOGLOBIN 30.7 PG (27.0-34.0); MEAN CORPUSCULAR HGB CONC 33.5 % (32.0-36.0); MEAN PLATELET VOLUME 8.1 FL (7.0-11.0); PLATELET COUNT 267 TH/MM3 (150-450); RED BLOOD COUNT 2.94 MIL/MM3 (4.50-5.90); RED CELL DISTRIBUTION WIDTH 13.5 % (11.6-17.2); WHITE BLOOD COUNT 10.1 TH/MM3 (4.0-11.0)
[2017-02-16] MEDS: ASPIRIN EC 81 MG TABEC PO SCH (09:02)
[2017-02-16] MEDS: ACYCLOVIR 200 MG CAP PO SCH ×2 (09:02→20:23)
[2017-02-16] MEDS: CLOPIDOGREL 75 MG TAB PO SCH (09:02)
[2017-02-16] MEDS: DOCUSATE SODIUM 50 MG/SENNA 8.6 MG TAB PO SCH ×2 (09:03→20:23)
[2017-02-16] MEDS: CALCITRIOL 0.25 MCG CAP PO SCH (09:03)
[2017-02-16] MEDS: PANTOPRAZOLE SOD 40 MG DELAYED RELEASE TAB PO SCH (09:03)
[2017-02-16] MEDS: INSULIN DETEMIR 100 UNITS/ML VIAL SQ SCH ×2 (09:04→20:26)
[2017-02-16] MEDS: SODIUM CHLORIDE 0.9% FLUSH 10 ML FLUSH IV FLUSH SCH ×2 (09:05→20:26)
[2017-02-16] MEDS: DRONABINOL 5 MG CAP PO SCH (17:56)
[2017-02-16] MEDS: ATORVASTATIN 20 MG TAB PO SCH (20:23)
[2017-02-16] MEDS: oxyCODONE HCL 10 MG CONTROLLED RELEASE TAB PO PRN (20:25)
[2017-02-17] VITALS (14 sets, daily range): BP systolic 122–145; BP diastolic 60–69; PULSE 65–82; RESP 20; TEMP 97.5–98.1; O2SAT 94–100
[2017-02-17] MEDS: CARVEDILOL 6.25 MG TAB PO SCH ×2 (06:30→16:40)
[2017-02-17] MEDS: SODIUM CHLORIDE 0.9% FLUSH 10 ML FLUSH IV FLUSH SCH ×2 (07:31→21:42)
[2017-02-17] MEDS: INSULIN ASPART SUPPLEMENTAL SCALE SQ SCH ×4 (07:50→21:00)
[2017-02-17] MEDS: DOCUSATE SODIUM 50 MG/SENNA 8.6 MG TAB PO SCH ×2 (08:03→21:43)
[2017-02-17] MEDS: CALCITRIOL 0.25 MCG CAP PO SCH (08:03)
[2017-02-17] MEDS: PANTOPRAZOLE SOD 40 MG DELAYED RELEASE TAB PO SCH (08:03)
[2017-02-17] MEDS: ASPIRIN EC 81 MG TABEC PO SCH (08:03)
[2017-02-17] MEDS: INSULIN DETEMIR 100 UNITS/ML VIAL SQ SCH ×2 (08:04→21:00)
[2017-02-17] MEDS: CLOPIDOGREL 75 MG TAB PO SCH (08:04)
[2017-02-17] MEDS: ACYCLOVIR 200 MG CAP PO SCH ×2 (08:09→21:42)
[2017-02-17] MEDS: DRONABINOL 5 MG CAP PO SCH ×2 (10:44→16:40)
--- NOTE | 2017-02-17 19:28 | HHI.PR ---
Subjective Remarks late entry - patient seen on 02/16/17 at 4 pm at bedside states patient not eating much. Patient relies poor appetite. Denies abdominal pain, nausea or vomiting Objective Vitals Vital Signs Date Time Temp Pulse Resp B/P (MAP) Pulse Ox O2 Delivery O2 Flow Rate FiO2 02/17/17 18:06 98.1 67 20 127/65 (85) 96 02/17/17 16:00 65 02/17/17 12:05 97.5 69 20 122/66 (84) 97 02/17/17 12:00 77 02/17/17 10:53 94 02/17/17 08:06 98.1 79 20 136/60 (85) 94 02/17/17 08:00 77 02/17/17 07:28 19 02/17/17 04:10 70 02/17/17 04:00 97.7 68 20 145/69 (94) 95 02/17/17 00:17 82 02/17/17 00:00 97.8 81 20 143/67 (92) 100 02/16/17 22:03 17 02/16/17 20:25 Room Air 02/16/17 20:06 80 02/16/17 20:00 98.4 78 20 139/65 (89) 95 I/O 02/16/17 02/16/17 02/16/17 02/17/17 02/17/17 02/17/17 07:00 15:00 23:00 07:00 15:00 23:00 Intake Total 360 ml 0 ml 240 ml 50 ml Output Total 50 ml Balance 310 ml 0 ml 240 ml 50 ml Intake Oral 360 ml 0 ml 240 ml 50 ml Output Urine Total 50 ml # Voids 2 0 2 0 # Bowel Movements 0 0 0 Result Diagram: 02/16/17 0657 02/14/17 0636 Objective Remarks GENERAL: Patient appearing older than stated age, frail, in no apparent distress. SKIN: Left great toe is necrotic. Second and third toes also purple. CARDIOVASCULAR: Regular rate and rhythm without murmurs, gallops, or rubs. RESPIRATORY: Clear to auscultation. Breath sounds equal bilaterally. No wheezes , rales, or rhonchi. GASTROINTESTINAL: Abdomen soft, non-tender, nondistended. No guarding. MUSCULOSKELETAL: I am unable to palpate a dorsalis pedis pulse bilaterally. Left foot cooler compared to right. NEUROLOGICAL: Awake and alert. Normal speech. Procedures sp LLE aortogram with runoff A/P Problem List: (1) Cellulitis ICD Code: L03.90 - Cellulitis, unspecified (2) Lower limb ischemia ICD Code: I99.8 - Other disorder of circulatory system (3) CKD (chronic kidney disease) ICD Code: N18.9 - Chronic kidney disease, unspecified (4) Diabetes ICD Code: E11.9 - Type 2 diabetes mellitus without complications (5) Tobacco abuse ICD Code: Z72.0 - Tobacco use (6) Severe protein-calorie malnutrition ICD Code: E43 - Unspecified severe protein-calorie malnutrition Status: Acute Plan: The patient is a nutritional risk with weight loss, low BMI. The patient has been seen by dietitian. There is for weight loss. The patient has been seen by dietitian recommended regular diet, Glucerna shakes 3 times a day. (7) Poor appetite ICD Code: R63.0 - Anorexia Plan: Will start the patient on Marinol. Assessment and Plan 66-year-old male presented with left lower extremity ischemia and cellulitis. Left great toe is necrotic, second and third great toe purple start on heparin drip on admission. There was evidence of cellulitis on presentation the patient was started on IV Rocephin. Restless surgery consulted. The patient underwent angioplasty. The patient was treated with aspirin and statin and counseled to quit smoking tobacco. The patient was cleared bibasilar surgery for DC. Patient will need outpatient follow-up with podiatry. Diabetes: The patient was placed on SSI with insulin and Accu-Cheks. Placed on regular diet since he was not eating much. Blood sugars became severely elevated in the 200 range, and the patient was started on insulin Levemir 5 units subcutaneous twice a day. Blood sugars then improved. The patient also was on D5 water with bicarbonate which was discontinued. 02/17 CKD: Unsure what his baseline is. Stable today - Follow renal functions. Avoid nephrotoxins. Multiple myeloma: He was evaluated by oncology at the outside hospital. No acute treatment indicated at this point. The recommendation. Outpatient follow -up is advised. Patient can continue same home medications. Chronic pain: Continue pain medication. Tobacco abuse: - Counseled patient on complete cessation given his significant vascular disease. HTN: Controlled continue amlodipine. Generalized weakness: Consut PT. GI prophylaxis: Stool softener PRN constipation. Discharge Planning Discharge pending placement. Problem Qualifiers (1) Cellulitis: Qualified Codes: L03.116 - Cellulitis of left lower limb (2) CKD (chronic kidney disease): Qualified Codes: N18.3 - Chronic kidney disease, stage 3 (moderate) (3) Diabetes: Qualified Codes: E11.51 - Type 2 diabetes mellitus with diabetic peripheral angiopathy without gangrene Gulshan Sandoval MD Feb 17, 2017 19:28
--- NOTE | 2017-02-17 19:29 | HHI.PR ---
Subjective Remarks Patient's states that the patient ate a little bit more today. The patient still feels with poor appetite. Denies fevers or chills. Denies cough. Denies chest pain or shortness of breath. Objective Vitals Vital Signs Date Time Temp Pulse Resp B/P (MAP) Pulse Ox O2 Delivery O2 Flow Rate FiO2 02/17/17 18:06 98.1 67 20 127/65 (85) 96 02/17/17 16:00 65 02/17/17 12:05 97.5 69 20 122/66 (84) 97 02/17/17 12:00 77 02/17/17 10:53 94 02/17/17 08:06 98.1 79 20 136/60 (85) 94 02/17/17 08:00 77 02/17/17 07:28 19 02/17/17 04:10 70 02/17/17 04:00 97.7 68 20 145/69 (94) 95 02/17/17 00:17 82 02/17/17 00:00 97.8 81 20 143/67 (92) 100 02/16/17 22:03 17 02/16/17 20:25 Room Air 02/16/17 20:06 80 02/16/17 20:00 98.4 78 20 139/65 (89) 95 I/O 02/16/17 02/16/17 02/16/17 02/17/17 02/17/17 02/17/17 07:00 15:00 23:00 07:00 15:00 23:00 Intake Total 360 ml 0 ml 240 ml 50 ml Output Total 50 ml Balance 310 ml 0 ml 240 ml 50 ml Intake Oral 360 ml 0 ml 240 ml 50 ml Output Urine Total 50 ml # Voids 2 0 2 0 # Bowel Movements 0 0 0 Result Diagram: 02/16/17 0657 02/14/17 0636 Objective Remarks GENERAL: Patient appearing older than stated age, frail, in no apparent distress. SKIN: Left great toe is necrotic. Second and third toes also purple. CARDIOVASCULAR: Regular rate and rhythm without murmurs, gallops, or rubs. RESPIRATORY: Clear to auscultation. Breath sounds equal bilaterally. No wheezes , rales, or rhonchi. GASTROINTESTINAL: Abdomen soft, non-tender, nondistended. No guarding. MUSCULOSKELETAL: I am unable to palpate a dorsalis pedis pulse bilaterally. Left foot cooler compared to right. NEUROLOGICAL: Awake and alert. Normal speech. Procedures sp LLE aortogram with runoff A/P Problem List: (1) Cellulitis ICD Code: L03.90 - Cellulitis, unspecified (2) Lower limb ischemia ICD Code: I99.8 - Other disorder of circulatory system (3) CKD (chronic kidney disease) ICD Code: N18.9 - Chronic kidney disease, unspecified (4) Diabetes ICD Code: E11.9 - Type 2 diabetes mellitus without complications (5) Tobacco abuse ICD Code: Z72.0 - Tobacco use (6) Severe protein-calorie malnutrition ICD Code: E43 - Unspecified severe protein-calorie malnutrition Status: Acute Plan: The patient is a nutritional risk with weight loss, low BMI. The patient has been seen by dietitian. There is for weight loss. The patient has been seen by dietitian recommended regular diet, Glucerna shakes 3 times a day. (7) Poor appetite ICD Code: R63.0 - Anorexia Plan: The patient was started on Marinol. Continue. Assessment and Plan 66-year-old male presented with left lower extremity ischemia and cellulitis. Left great toe is necrotic, second and third great toe purple start on heparin drip on admission. There was evidence of cellulitis on presentation the patient was started on IV Rocephin. Restless surgery consulted. The patient underwent angioplasty. The patient was treated with aspirin and statin and counseled to quit smoking tobacco. The patient was cleared bibasilar surgery for DC. Patient will need outpatient follow-up with podiatry. Diabetes: The patient was placed on SSI with insulin and Accu-Cheks. Placed on regular diet since he was not eating much. Blood sugars became severely elevated in the 200 range, and the patient was started on insulin Levemir 5 units subcutaneous twice a day. Blood sugars then improved. The patient also was on D5 water with bicarbonate which was discontinued. 02/17 CKD: Unsure what his baseline is. Stable today - Follow renal functions. Avoid nephrotoxins. Multiple myeloma: He was evaluated by oncology at the outside hospital. No acute treatment indicated at this point. The recommendation. Outpatient follow -up is advised. Patient can continue same home medications. Chronic pain: Continue pain medication. Tobacco abuse: - Counseled patient on complete cessation given his significant vascular disease. HTN: Controlled continue amlodipine. Generalized weakness: Consut PT. GI prophylaxis: Stool softener PRN constipation. Discharge Planning Discharge pending placement. Problem Qualifiers (1) Cellulitis: Qualified Codes: L03.116 - Cellulitis of left lower limb (2) CKD (chronic kidney disease): Qualified Codes: N18.3 - Chronic kidney disease, stage 3 (moderate) (3) Diabetes: Qualified Codes: E11.51 - Type 2 diabetes mellitus with diabetic peripheral angiopathy without gangrene Gulshan Sandoval MD Feb 17, 2017 19:29
[2017-02-17] MEDS: ATORVASTATIN 20 MG TAB PO SCH (21:43)
[2017-02-18] VITALS (11 sets, daily range): BP systolic 116–149; BP diastolic 58–69; PULSE 61–81; RESP 18–21; TEMP 97.5–98.1; O2SAT 93–98
[2017-02-18] MEDS: CARVEDILOL 6.25 MG TAB PO SCH ×2 (05:48→16:12)
[2017-02-18 06:27] LABS: BICARBONATE 25.5 MEQ/L (21.0-32.0); CALCIUM 9.2 MG/DL (8.5-10.1); CREATININE 2.06 MG/DL (0.60-1.30)
[2017-02-18 07:03] LABS: HEMOGLOBIN 9.5 GM/DL (13.0-17.0); MEAN CELL VOLUME 92.3 FL (80.0-100.0); MEAN CORPUSCULAR HEMOGLOBIN 31.3 PG (27.0-34.0); MEAN PLATELET VOLUME 8.1 FL (7.0-11.0); PLATELET COUNT 280 TH/MM3 (150-450); RED BLOOD COUNT 3.03 MIL/MM3 (4.50-5.90); RED CELL DISTRIBUTION WIDTH 13.7 % (11.6-17.2); WHITE BLOOD COUNT 10.8 TH/MM3 (4.0-11.0)
[2017-02-18] MEDS: INSULIN ASPART SUPPLEMENTAL SCALE SQ SCH ×4 (08:00→20:50)
[2017-02-18] MEDS: INSULIN DETEMIR 100 UNITS/ML VIAL SQ SCH (08:19)
[2017-02-18] MEDS: DOCUSATE SODIUM 50 MG/SENNA 8.6 MG TAB PO SCH ×2 (08:19→20:50)
[2017-02-18] MEDS: ACYCLOVIR 200 MG CAP PO SCH ×2 (08:20→20:50)
[2017-02-18] MEDS: ASPIRIN EC 81 MG TABEC PO SCH (08:20)
[2017-02-18] MEDS: SODIUM CHLORIDE 0.9% FLUSH 10 ML FLUSH IV FLUSH SCH ×2 (08:20→20:50)
[2017-02-18] MEDS: CALCITRIOL 0.25 MCG CAP PO SCH (08:20)
[2017-02-18] MEDS: CLOPIDOGREL 75 MG TAB PO SCH (08:20)
[2017-02-18] MEDS: PANTOPRAZOLE SOD 40 MG DELAYED RELEASE TAB PO SCH (08:20)
[2017-02-18] MEDS: DRONABINOL 5 MG CAP PO SCH ×2 (10:42→16:12)
--- NOTE | 2017-02-18 11:59 | HHI.PR ---
Subjective Remarks As per RN report patient not eating much. at bedsider states he ate 1/2 bowl of cereal today. Patient is sleeping and wakes up however gives no response when spoken to. Denies pain. Still poor appetite. Creatinine noted to be trending up. Objective Vitals Vital Signs Date Time Temp Pulse Resp B/P (MAP) Pulse Ox O2 Delivery O2 Flow Rate FiO2 02/18/17 08:05 97.8 75 21 127/64 (85) 93 02/18/17 04:00 Room Air 02/18/17 04:00 97.5 75 18 149/67 (94) 98 02/18/17 03:46 80 02/18/17 00:00 Room Air 02/18/17 00:00 97.9 73 18 149/69 (95) 94 02/17/17 23:45 74 02/17/17 22:00 Room Air 02/17/17 20:00 98.1 71 20 130/68 (88) 98 02/17/17 19:49 73 02/17/17 18:06 98.1 67 20 127/65 (85) 96 02/17/17 16:00 65 02/17/17 12:05 97.5 69 20 122/66 (84) 97 02/17/17 12:00 77 I/O 02/17/17 02/17/17 02/17/17 02/18/17 02/18/17 02/18/17 07:00 15:00 23:00 07:00 15:00 23:00 Intake Total 240 ml 50 ml Balance 240 ml 50 ml Intake Oral 240 ml 50 ml Bladder Scan Volume Amount 619 ml 577 ml # Voids 2 0 4 # Bowel Movements 0 Result Diagram: 02/18/17 0455 02/18/17 0455 Objective Remarks GENERAL: Patient appearing older than stated age, frail, in no apparent distress. SKIN: Left great toe is necrotic. Second and third toes also purple. CARDIOVASCULAR: Regular rate and rhythm without murmurs, gallops, or rubs. RESPIRATORY: Clear to auscultation. Breath sounds equal bilaterally. No wheezes , rales, or rhonchi. GASTROINTESTINAL: Abdomen soft, non-tender, nondistended. No guarding. MUSCULOSKELETAL: I am unable to palpate a dorsalis pedis pulse bilaterally. Left foot cooler compared to right. NEUROLOGICAL: Awake and alert. Normal speech. Procedures sp LLE aortogram with runoff Medications and IVs Current Medications Medications (Trade) Dose Ordered Sig/Pa Route Start Time Stop Time Status Last Admin (NS Flush) 2 ml UNSCH PRN IV FLUSH 02/09/17 21:45 (NS Flush) 2 ml BID IV FLUSH 02/10/17 09:00 02/18/17 08:20 (Zofran Inj) 4 mg Q6H PRN IVP 02/09/17 21:45 (Tylenol) 650 mg Q6H PRN PO 02/09/17 21:45 (Morphine Inj) 2 mg Q3H PRN IV PUSH 02/09/17 21:45 (Pat-Colace) 1 tab BID PO 02/10/17 09:00 02/18/17 08:19 (Milk Of Magnesia Liq) 30 ml Q12H PRN PO 02/09/17 21:45 (Senokot) 17.2 mg Q12H PRN PO 02/09/17 21:45 (Dulcolax Supp) 10 mg DAILY PRN RECTAL 02/09/17 21:45 (Lactulose Liq) 30 ml DAILY PRN PO 02/09/17 21:45 (D50w (Vial) Inj) 50 ml UNSCH PRN IV PUSH 02/09/17 23:00 (Glucagon Inj) 1 mg UNSCH PRN OTHER 02/09/17 23:00 (NovoLOG SUPPLEMENTAL SCALE) 1 ACHS SLIDING SCALE SQ 02/10/17 08:00 02/16/17 20:26 (Zovirax) 400 mg BID PO 02/10/17 09:00 02/18/17 08:20 (Lipitor) 20 mg HS PO 02/10/17 21:00 02/17/17 21:43 (Tessalon) 100 mg BID PRN PO 02/09/17 23:00 02/10/17 17:34 (Rocaltrol) 0.25 mcg DAILY PO 02/10/17 09:00 02/18/17 08:20 (Coreg) 6.25 mg BIDAC PO 02/10/17 07:00 02/18/17 05:48 (Roxicodone) 10 mg Q6H PRN PO 02/09/17 23:00 02/18/17 05:48 (Protonix) 40 mg DAILY PO 02/10/17 09:00 02/18/17 08:20 (OxyCONTIN CR) 30 mg BID PRN PO 02/09/17 23:00 02/16/17 20:25 (Restoril) 30 mg HS PRN PO 02/09/17 23:00 02/14/17 21:01 (Ecotrin Ec) 81 mg DAILY PO 02/11/17 09:00 02/18/17 08:20 (Catapres) 0.1 mg Q6H PRN PO 02/11/17 03:00 02/15/17 00:26 (Apresoline Inj) 10 mg Q3H PRN IV PUSH 02/13/17 09:15 02/15/17 12:11 (Plavix) 75 mg DAILY PO 02/14/17 09:00 02/18/17 08:20 (Norvasc) 10 mg DAILY PO 02/15/17 20:30 02/18/17 08:20 (Marinol) 5 mg BID@11,16 PO 02/16/17 16:00 02/18/17 10:42 A/P Problem List: (1) Cellulitis ICD Code: L03.90 - Cellulitis, unspecified (2) Lower limb ischemia ICD Code: I99.8 - Other disorder of circulatory system (3) CKD (chronic kidney disease) ICD Code: N18.9 - Chronic kidney disease, unspecified (4) Diabetes ICD Code: E11.9 - Type 2 diabetes mellitus without complications (5) Tobacco abuse ICD Code: Z72.0 - Tobacco use (6) Severe protein-calorie malnutrition ICD Code: E43 - Unspecified severe protein-calorie malnutrition Status: Acute Plan: The patient is a nutritional risk with weight loss, low BMI. The patient has been seen by dietitian. There is weight loss. The patient has been seen by dietitian recommended regular diet, Glucerna shakes 3 times a day. 02/18 Patient not eating or drinking fluids enough as per family and nurse. Will order a calorie count for PEG tube placement if caloric intake is inadequate. Case discussed with the patient and his was at bedside. The patient was unable to comprehend and unable to explain to me what I just explained to him. At this moment the patient does not have capacity to make his own medical decisions. I defer to the with the next of kin. The stated that the patient would like to have a PEG tube placed if that would help him improve his health and he is not actively dying. (7) Poor appetite ICD Code: R63.0 - Anorexia Plan: The patient was started on Marinol. Continue. 02/18 Will add Megace. Patient is currently on Plavix - will add heparin SQ to counteract hypercoagulable state that could be induced with Megace. Assessment and Plan 66-year-old male presented with left lower extremity ischemia and cellulitis. Left great toe is necrotic, second and third great toe purple start on heparin drip on admission. There was evidence of cellulitis on presentation the patient was started on IV Rocephin. Restless surgery consulted. The patient underwent angioplasty. The patient was treated with aspirin and statin and counseled to quit smoking tobacco. The patient was cleared bibasilar surgery for DC. Patient will need outpatient follow-up with podiatry. Diabetes: The patient was placed on SSI with insulin and Accu-Cheks. Placed on regular diet since he was not eating much. Blood sugars became severely elevated in the 200 range, and the patient was started on insulin Levemir 5 units subcutaneous twice a day. Blood sugars then improved. The patient also was on D5 water with bicarbonate which was discontinued. 02/18 Continue SSI with insulin Novolog. Monitor Accuchecks. Will DC Levemir since blood sugars are lower since patient not eating. SHIRA on CKD III: Unsure what his baseline is. Stable today Follow renal functions. Avoid nephrotoxins. 02/18 Creatinine is trending up. Possibly a combination of postobstructive nephropathy along with some dehydration. As per RN report there is retention of 500 ml of urine in bladder. Will insert lopez catheter and start on Flomax. Multiple myeloma: He was evaluated by oncology outside hospital. No acute treatment indicated at this point. The recommendation. Outpatient follow-up is advised. Patient can continue same home medications. Chronic pain: Continue pain medication. Tobacco abuse: - Counseled patient on complete cessation given his significant vascular disease. HTN: Controlled continue amlodipine. Generalized weakness: Consut PT. GI prophylaxis: Stool softener PRN constipation. Discharge Planning Discharge pending placement. Problem Qualifiers (1) Cellulitis: Qualified Codes: L03.116 - Cellulitis of left lower limb (2) CKD (chronic kidney disease): Qualified Codes: N18.3 - Chronic kidney disease, stage 3 (moderate) (3) Diabetes: Qualified Codes: E11.51 - Type 2 diabetes mellitus with diabetic peripheral angiopathy without gangrene Gulshan Sandoval MD Feb 18, 2017 11:59
[2017-02-18] MEDS: HEPARIN SODIUM - SQ 10,000 UNITS/ML VIAL SQ SCH ×2 (12:25→20:50)
[2017-02-18] MEDS: MEGESTROL ACETATE SUSP 400 MG/10 ML CUP PO SCH (12:25)
[2017-02-18] MEDS: ATORVASTATIN 20 MG TAB PO SCH (20:50)
[2017-02-19] VITALS (10 sets, daily range): BP systolic 120–174; BP diastolic 56–77; PULSE 70–92; RESP 16–18; TEMP 97.4–98.1; O2SAT 93–98
[2017-02-19] MEDS: CARVEDILOL 6.25 MG TAB PO SCH ×2 (05:45→16:00)
[2017-02-19 07:02] LABS: HEMATOCRIT 27.7 % (39.0-51.0); HEMOGLOBIN 9.5 GM/DL (13.0-17.0); MEAN CORPUSCULAR HEMOGLOBIN 31.5 PG (27.0-34.0); MEAN CORPUSCULAR HGB CONC 34.3 % (32.0-36.0); MEAN PLATELET VOLUME 8.4 FL (7.0-11.0); PLATELET COUNT 350 TH/MM3 (150-450); RED BLOOD COUNT 3.01 MIL/MM3 (4.50-5.90); RED CELL DISTRIBUTION WIDTH 13.5 % (11.6-17.2); WHITE BLOOD COUNT 12.9 TH/MM3 (4.0-11.0)
[2017-02-19 07:27] LABS: BICARBONATE 24.5 MEQ/L (21.0-32.0); CALCIUM 9.4 MG/DL (8.5-10.1); CREATININE 2.25 MG/DL (0.60-1.30)
[2017-02-19] MEDS: ASPIRIN EC 81 MG TABEC PO SCH (08:39)
[2017-02-19] MEDS: CALCITRIOL 0.25 MCG CAP PO SCH (08:39)
[2017-02-19] MEDS: HEPARIN SODIUM - SQ 10,000 UNITS/ML VIAL SQ SCH ×2 (08:39→21:48)
[2017-02-19] MEDS: ACYCLOVIR 200 MG CAP PO SCH ×2 (08:39→21:48)
[2017-02-19] MEDS: MEGESTROL ACETATE SUSP 400 MG/10 ML CUP PO SCH (08:39)
[2017-02-19] MEDS: DOCUSATE SODIUM 50 MG/SENNA 8.6 MG TAB PO SCH ×2 (08:40→21:49)
[2017-02-19] MEDS: SODIUM CHLORIDE 0.9% FLUSH 10 ML FLUSH IV FLUSH SCH ×2 (08:40→21:49)
[2017-02-19] MEDS: PANTOPRAZOLE SOD 40 MG DELAYED RELEASE TAB PO SCH (08:40)
[2017-02-19] MEDS: CLOPIDOGREL 75 MG TAB PO SCH (08:40)
[2017-02-19] MEDS: INSULIN ASPART SUPPLEMENTAL SCALE SQ SCH ×4 (08:41→22:16)
[2017-02-19] MEDS: SODIUM CHLOR 0.9% 1000 ML INJ 1,000 ML IV SCH (12:37)
[2017-02-19] MEDS: DRONABINOL 5 MG CAP PO SCH ×2 (12:38→16:00)
--- NOTE | 2017-02-19 13:23 | PD.VS.PN ---
Subjective POD #: 6 Procedure(s): L LE angiogram L SFA atherectomy/[employer]/stent (6x40) L peroneal [employer] (2-2.5 mm tapered balloon) R [employer] Angioseal Subjective/Hospital Course Afebrile 66/M alert/non verbal/NAD FM at the BS POD# 6 s/p L SFA orbital atherectomy/[employer]/stent and peroneal [employer] LE warm Dry gangrene present LEFT great toe (stable) No odor present Objective Vitals/I&O Date Time Temp Pulse Resp B/P (MAP) Pulse Ox O2 Delivery O2 Flow Rate FiO2 18 12:11 97.8 70 18 143/73 (96) 97 02/19/17 08:00 97.4 80 18 130/70 (90) 95 02/19/17 07:45 78 02/19/17 04:00 97.6 82 18 128/68 (88) 94 02/19/17 03:45 78 02/19/17 00:00 98.1 92 16 127/67 (87) 98 02/18/17 23:45 81 02/18/17 22:16 97 21 02/18/17 20:00 97.9 80 18 121/59 (79) 98 02/18/17 19:49 80 Exam: GENERAL: Alert in NAD/Non verbal/ Disheveled appearance SKIN: LE Warm and dry Dry gangrene present to LEFT great toe (stable) w/ improved erythema MUSCULOSKELETAL: No cyanosis, or edema. L popliteal pulse palpable L PT with biphasic signals heard via Doppler Laboratory Laboratory Tests Test 02/19/17 06:20 White Blood Count 12.9 Red Blood Count 3.01 Hemoglobin 9.5 Hematocrit 27.7 Mean Corpuscular Volume 92.0 Mean Corpuscular Hemoglobin 31.5 Mean Corpuscular Hemoglobin Concent 34.3 Red Cell Distribution Width 13.5 Platelet Count 350 Mean Platelet Volume 8.4 Blood Urea Nitrogen 46 Creatinine 2.25 Random Glucose 202 Calcium Level 9.4 Sodium Level 141 Potassium Level 4.2 Chloride Level 106 Carbon Dioxide Level 24.5 Anion Gap 11 Estimat Glomerular Filtration Rate 30 Assessment and Plan Assessment: (1) PAD (peripheral artery disease) Plan POD# 6 s/p L LE revascularization LE Warm Left great toe necrosis stable with improved erythema Pt with palpable LEFT popliteal pulse and strong L PT heard via Doppler By exam pt w/ sufficient L LE perfusion Plan Continue aggressive antiplatelet (ASA/Plavix) May weight bear as tolerated Continue PT Arranged out pt follow up with a surveillance FRANCHESCA Sabina CRAVEN [facility] [phone] Sabina Finley Feb 19, 2017 13:23
--- NOTE | 2017-02-19 14:45 | RADRPT ---
EXAM DATE/TIME: 02/19/2017 13:46 [facility] COMPARISON: No previous studies available for comparison. INDICATIONS : Increased BUN/creatinine. MEDICAL HISTORY : Hypercholesterolemia. HTN. COPD. Prostate. Multiple myeloma. Joint pain. SURGICAL HISTORY : Left hand surgery. Left knee surgery. Chemotherapy. Radiation therapy. Port insertation. ENCOUNTER: Initial ACUITY: 1 day PAIN SCORE: 0/10 LOCATION: Bilateral flank MEASUREMENTS: RIGHT KIDNEY: 11.3 x 3.5 x 4.7 cm LEFT KIDNEY: Non-visualized FINDINGS: RIGHT KIDNEY: Renal cortex is normal in thickness and echotexture. No hydronephrosis, stone, or mass. LEFT KIDNEY: Not visualized. BLADDER: Watson catheter in place CONCLUSION: Normal right kidney with questionable mild increased echogenicity of the cortex. No left kidney is vi sualized. Watson catheter in place in the bladder. Incidentally appreciated is suggestion of a right p leural effusion. Manule Bai MD on February 19, 2017 at 14:40 Board Certified Radiologist. This report was verified electronically.
--- NOTE | 2017-02-19 18:15 | HHI.PR ---
Subjective Remarks Deferred entry - patient seen at 12:30 am PAtient is more awake and seems to be interacting more today. Sister at bedside. Patient still not eating much, poor appetite. Objective Vitals Vital Signs Date Time Temp Pulse Resp B/P (MAP) Pulse Ox O2 Delivery O2 Flow Rate FiO2 02/19/17 15:53 97.8 78 16 120/56 (77) 93 02/19/17 12:11 97.8 70 18 143/73 (96) 97 02/19/17 08:00 97.4 80 18 130/70 (90) 95 02/19/17 07:45 78 02/19/17 04:00 97.6 82 18 128/68 (88) 94 02/19/17 03:45 78 02/19/17 00:00 98.1 92 16 127/67 (87) 98 02/18/17 23:45 81 02/18/17 22:16 97 21 02/18/17 20:00 97.9 80 18 121/59 (79) 98 02/18/17 19:49 80 I/O 02/18/17 02/18/17 02/18/17 02/19/17 02/19/17 02/19/17 07:00 15:00 23:00 07:00 15:00 23:00 Intake Total 25 ml 120 ml Output Total 1650 ml 300 ml Balance -1625 ml -180 ml Intake Oral 25 ml 120 ml Output Urine Total 1650 ml 300 ml Bladder Scan Volume Amount 577 ml # Voids 4 # Bowel Movements 0 0 Result Diagram: 02/19/17 0620 02/19/17 0620 Imaging Last Impressions Renal Ultrasound 02/19/17 0000 Signed Impressions: Service Date/Time: Sunday, February 19, 2017 13:46 - CONCLUSION: Normal right kidney with questionable mild increased echogenicity of the cortex. No left kidney is visualized. Lopez catheter in place in the bladder. Incidentally appreciated is suggestion of a right pleural effusion. Manuel Bai MD Objective Remarks GENERAL: Patient appearing older than stated age, frail, in no apparent distress. SKIN: Left great toe is necrotic. Second and third toes also purple. CARDIOVASCULAR: Regular rate and rhythm without murmurs, gallops, or rubs. RESPIRATORY: Clear to auscultation. Breath sounds equal bilaterally. No wheezes , rales, or rhonchi. GASTROINTESTINAL: Abdomen soft, non-tender, nondistended. No guarding. MUSCULOSKELETAL: I am unable to palpate a dorsalis pedis pulse bilaterally. Left foot cooler compared to right. NEUROLOGICAL: Awake and alert. Normal speech. Procedures sp LLE aortogram with runoff Medications and IVs Current Medications Medications (Trade) Dose Ordered Sig/Pa Route Start Time Stop Time Status Last Admin (NS Flush) 2 ml UNSCH PRN IV FLUSH 02/09/17 21:45 (NS Flush) 2 ml BID IV FLUSH 02/10/17 09:00 02/19/17 08:40 (Zofran Inj) 4 mg Q6H PRN IVP 02/09/17 21:45 (Tylenol) 650 mg Q6H PRN PO 02/09/17 21:45 (Morphine Inj) 2 mg Q3H PRN IV PUSH 02/09/17 21:45 (Pat-Colace) 1 tab BID PO 02/10/17 09:00 02/19/17 08:40 (Milk Of Magnesia Liq) 30 ml Q12H PRN PO 02/09/17 21:45 (Senokot) 17.2 mg Q12H PRN PO 02/09/17 21:45 (Dulcolax Supp) 10 mg DAILY PRN RECTAL 02/09/17 21:45 (Lactulose Liq) 30 ml DAILY PRN PO 02/09/17 21:45 (D50w (Vial) Inj) 50 ml UNSCH PRN IV PUSH 02/09/17 23:00 (Glucagon Inj) 1 mg UNSCH PRN OTHER 02/09/17 23:00 (NovoLOG SUPPLEMENTAL SCALE) 1 ACHS SLIDING SCALE SQ 02/10/17 08:00 02/19/17 13:44 (Zovirax) 400 mg BID PO 02/10/17 09:00 02/19/17 08:39 (Lipitor) 20 mg HS PO 02/10/17 21:00 02/18/17 20:50 (Tessalon) 100 mg BID PRN PO 02/09/17 23:00 02/10/17 17:34 (Rocaltrol) 0.25 mcg DAILY PO 02/10/17 09:00 02/19/17 08:39 (Coreg) 6.25 mg BIDAC PO 02/10/17 07:00 02/19/17 05:45 (Roxicodone) 10 mg Q6H PRN PO 02/09/17 23:00 02/19/17 13:43 (Protonix) 40 mg DAILY PO 02/10/17 09:00 02/19/17 08:40 (OxyCONTIN CR) 30 mg BID PRN PO 02/09/17 23:00 02/16/17 20:25 (Restoril) 30 mg HS PRN PO 02/09/17 23:00 02/14/17 21:01 (Ecotrin Ec) 81 mg DAILY PO 02/11/17 09:00 02/19/17 08:39 (Catapres) 0.1 mg Q6H PRN PO 02/11/17 03:00 02/15/17 00:26 (Apresoline Inj) 10 mg Q3H PRN IV PUSH 02/13/17 09:15 02/15/17 12:11 (Plavix) 75 mg DAILY PO 02/14/17 09:00 02/19/17 08:40 (Norvasc) 10 mg DAILY PO 02/15/17 20:30 02/19/17 08:40 (Marinol) 5 mg BID@11,16 PO 02/16/17 16:00 02/19/17 12:38 (Heparin Inj) 5,000 units Q12HR SQ 02/18/17 12:15 02/19/17 08:39 (Megace Liq) 400 mg DAILY PO 02/18/17 12:15 02/19/17 08:39 Sodium Chloride 1,000 ml @ 84 mls/hr [id number] IV 02/19/17 10:30 02/19/17 12:37 (Levemir Inj) 5 units Q12HR SQ 02/19/17 21:00 A/P Problem List: (1) Cellulitis ICD Code: L03.90 - Cellulitis, unspecified (2) Lower limb ischemia ICD Code: I99.8 - Other disorder of circulatory system (3) CKD (chronic kidney disease) ICD Code: N18.9 - Chronic kidney disease, unspecified (4) Diabetes ICD Code: E11.9 - Type 2 diabetes mellitus without complications (5) Tobacco abuse ICD Code: Z72.0 - Tobacco use (6) Severe protein-calorie malnutrition ICD Code: E43 - Unspecified severe protein-calorie malnutrition Status: Acute Plan: The patient is a nutritional risk with weight loss, low BMI. The patient has been seen by dietitian. There is weight loss. The patient has been seen by dietitian recommended regular diet, Glucerna shakes 3 times a day. 02/18 Patient not eating or drinking fluids enough as per family and nurse. Will order a calorie count for PEG tube placement if caloric intake is inadequate. Case discussed with the patient and his was at bedside. The patient was unable to comprehend and unable to explain to me what I just explained to him. At this moment the patient does not have capacity to make his own medical decisions. I defer to the with the next of kin. The stated that the patient would like to have a PEG tube placed if that would help him improve his health and he is not actively dying. 02/19 Calorie count started - results on 02/21. (7) Poor appetite ICD Code: R63.0 - Anorexia Plan: The patient was started on Marinol. Continue. 02/18 Will add Megace. Patient is currently on Plavix - will add heparin SQ to counteract hypercoagulable state that could be induced with Megace. 02/19 continue Marinol and Megace. Assessment and Plan 66-year-old male presented with left lower extremity ischemia and cellulitis. Left great toe is necrotic, second and third great toe purple start on heparin drip on admission. There was evidence of cellulitis on presentation the patient was started on IV Rocephin. Restless surgery consulted. The patient underwent angioplasty. The patient was treated with aspirin and statin and counseled to quit smoking tobacco. The patient was cleared bibasilar surgery for DC. Patient will need outpatient follow-up with podiatry. Diabetes: The patient was placed on SSI with insulin and Accu-Cheks. Placed on regular diet since he was not eating much. Blood sugars became severely elevated in the 200 range, and the patient was started on insulin Levemir 5 units subcutaneous twice a day. Blood sugars then improved. The patient also was on D5 water with bicarbonate which was discontinued. 02/18 Continue SSI with insulin Novolog. Monitor Accuchecks. Will DC Levemir since blood sugars are lower since patient not eating. SHIRA on CKD III: Unsure what his baseline is. Stable today Follow renal functions. Avoid nephrotoxins. 1/14 Creatinine is trending up. Possibly a combination of postobstructive nephropathy along with some dehydration. As per RN report there is retention of 500 ml of urine in bladder. Will insert lopez catheter and start on Flomax. 02/19 Continue lopez catheter. Creatinine continues to trend up. Likely secondary to poor oral intake and dehydration. I will start the patient IV normal saline and continue to monitor BUN/creatinine. Avoid nephrotoxins. Multiple myeloma: He was evaluated by oncology outside hospital. No acute treatment indicated at this point. The recommendation. Outpatient follow-up is advised. Patient can continue same home medications. 02/19 patient's history is requesting an oncology consultation. Will consult medical oncology. The patient is undergoing treatment as an outpatient and this has been on hold to the patient has been admitted to the hospital. Chronic pain: Continue pain medication. Tobacco abuse: - Counseled patient on complete cessation given his significant vascular disease. HTN: Controlled continue amlodipine. Generalized weakness: Consut PT - patient will need rehab GI prophylaxis: Stool softener PRN constipation. Discharge Planning Ongoing calorie count. Problem Qualifiers (1) Cellulitis: Qualified Codes: L03.116 - Cellulitis of left lower limb (2) CKD (chronic kidney disease): Qualified Codes: N18.3 - Chronic kidney disease, stage 3 (moderate) (3) Diabetes: Qualified Codes: E11.51 - Type 2 diabetes mellitus with diabetic peripheral angiopathy without gangrene Gulshan Sandoval MD Feb 19, 2017 18:15
--- NOTE | 2017-02-19 18:25 | PD.WCN.NOT ---
Wound Consult Description: Patient seen on byram for evaluation of wound management to bilateral heels with maceration Communicated with: RN Mariia [address] [place] [address] and Doctor Lan Recommendation: 1.Please apply skin prep to bilateral heel deep tissue injuries and leave open to air and keep bilateral heels off mattress 2. Cleanse sacral wound with normal saline and pat dry. Apply optifoam gentle 6x6 dressing over wound and change every 3 to 5 days and PRN if saturated or dislodged. Please apply skin prep to periwound before applying dressings. 3. Cleanse L buttock wound with normal saline and pat dry. Apply optifoam gentle 4x4 dressing over wound and change every 3 to 5 days and PRN if saturated or dislodged. Please apply skin prep to periwound before applying dressings. 4. Turn patient every 2 hours and PRN for comfort and offloading of pressure from sarah prominences. 5. Obtain Wave bed from [facility], for multiple areas or pressure. Additional Information: Patient seen on byram for evaluation of wound management of bilateral heels with maceration around 1645.Patient is laying in regular bed [facility] beds with bilateral heels elevated and floating on pillows with heel raiser boots. Assessed heels to reveal deep tissue injuries. R lateral heel presents with area of non blanchable intact skin with purple discoloration that measures ~3cm x ~3cm. L lateral also presents with non blanchable intact skin with purple discoloration that measures ~2cm x ~3cm. Skin prep was applied to these deep tissue injuries on bilateral heels and left open to air. Patient was then turned with the assistance of SHUTTLE FILLER to reveal unstageable pressure injury to sacrum that measures ~4cm x ~3cm x slough. Wound bed presents with ~40% yellow slough and ~60% red tissue. Peeled back adhesive foam dressing on L buttock to reveal partial thickness skin loss that measures ~1cm x ~2cm x ~<0.1cm. Wound to L buttock partial thickness skin loss is classified a stage 2 pressure injury. Replaced adhesive foam dressing back in place. Patient is in to much pain for placement of adhesive foam dressing on sacral wound at this time. RN will give pain medication and then clean wound and place dressing to sacrum as recommended above.Patient was positioned to L side to offload pressure from sacral area with pillow in place for support.Specialty Bed ordered.[facility]fort [facility] Feb 19, 2017 18:25
[2017-02-19] MEDS: ATORVASTATIN 20 MG TAB PO SCH (21:49)
[2017-02-19] MEDS: INSULIN DETEMIR 100 UNITS/ML VIAL SQ SCH (21:50)
[2017-02-20] VITALS (13 sets, daily range): BP systolic 118–148; BP diastolic 57–73; PULSE 69–82; RESP 17–22; TEMP 97.2–98.3; O2SAT 96–99
[2017-02-20] MEDS: SODIUM CHLOR 0.9% 1000 ML INJ 1,000 ML IV SCH ×2 (01:28→13:42)
[2017-02-20] MEDS: CARVEDILOL 6.25 MG TAB PO SCH ×2 (05:55→17:54)
[2017-02-20] MEDS: INSULIN ASPART SUPPLEMENTAL SCALE SQ SCH ×4 (07:55→21:00)
[2017-02-20] MEDS: CALCITRIOL 0.25 MCG CAP PO SCH (09:13)
[2017-02-20] MEDS: HEPARIN SODIUM - SQ 10,000 UNITS/ML VIAL SQ SCH (09:13)
[2017-02-20] MEDS: INSULIN DETEMIR 100 UNITS/ML VIAL SQ SCH ×2 (09:13→21:50)
[2017-02-20] MEDS: ACYCLOVIR 200 MG CAP PO SCH ×2 (09:14→21:31)
[2017-02-20] MEDS: CLOPIDOGREL 75 MG TAB PO SCH (09:14)
[2017-02-20] MEDS: DOCUSATE SODIUM 50 MG/SENNA 8.6 MG TAB PO SCH ×2 (09:14→21:30)
[2017-02-20] MEDS: PANTOPRAZOLE SOD 40 MG DELAYED RELEASE TAB PO SCH (09:14)
[2017-02-20] MEDS: ASPIRIN EC 81 MG TABEC PO SCH (09:14)
[2017-02-20] MEDS: MEGESTROL ACETATE SUSP 400 MG/10 ML CUP PO SCH (09:16)
[2017-02-20] MEDS: SODIUM CHLORIDE 0.9% FLUSH 10 ML FLUSH IV FLUSH SCH ×2 (09:16→21:00)
[2017-02-20 12:53] LABS: HEMATOCRIT 24.9 % (39.0-51.0); HEMOGLOBIN 8.4 GM/DL (13.0-17.0); MEAN CELL VOLUME 92.7 FL (80.0-100.0); MEAN CORPUSCULAR HEMOGLOBIN 31.4 PG (27.0-34.0); MEAN CORPUSCULAR HGB CONC 33.8 % (32.0-36.0); MEAN PLATELET VOLUME 7.8 FL (7.0-11.0); PLATELET COUNT 324 TH/MM3 (150-450); RED BLOOD COUNT 2.69 MIL/MM3 (4.50-5.90); RED CELL DISTRIBUTION WIDTH 13.5 % (11.6-17.2)
[2017-02-20 12:55] LABS: BICARBONATE 24.4 MEQ/L (21.0-32.0); CALCIUM 8.8 MG/DL (8.5-10.1); CREATININE 1.76 MG/DL (0.60-1.30); MAGNESIUM 2.6 MG/DL (1.5-2.5); PHOSPHORUS 1.6 MG/DL (2.5-4.9)
--- NOTE | 2017-02-20 13:29 | PD.ONC.PN ---
Subjective Subjective Remarks Afebrile overnight. Late entry, patient seen at ~1015AM. Patient resting in room with at bedside. assistant manager retail is also in the room attempting to get the patient out of bed. Per , patient was able to sit up on side of bed before he was admitted to hospital. Patient appears extremely cachetic and weak and makes no effort to move to side of bed. Objective Data Date Time Temp Pulse Resp B/P (MAP) Pulse Ox O2 Delivery O2 Flow Rate FiO2 02/20/17 08:00 97.7 78 20 136/64 (88) 96 02/20/17 05:31 81 02/20/17 04:56 97.8 78 17 142/71 (94) 98 02/20/17 04:36 75 02/20/17 03:39 82 02/20/17 00:36 97.2 80 17 139/67 (91) 96 02/19/17 20:51 97.5 78 17 174/77 (109) 98 02/19/17 15:54 74 02/19/17 15:53 97.8 78 16 120/56 (77) 93 02/20/17 02/20/17 02/20/17 07:00 15:00 23:00 Intake Total 474 ml Output Total 1000 ml Balance -526 ml Result Diagram: 02/20/17 1139 02/20/17 1139 Laboratory Results Laboratory Tests Test 02/20/17 11:39 White Blood Count 11.0 TH/MM3 Red Blood Count 2.69 MIL/MM3 Hemoglobin 8.4 GM/DL Hematocrit 24.9 % Mean Corpuscular Volume 92.7 FL Mean Corpuscular Hemoglobin 31.4 PG Mean Corpuscular Hemoglobin Concent 33.8 % Red Cell Distribution Width 13.5 % Platelet Count 324 TH/MM3 Mean Platelet Volume 7.8 FL Blood Urea Nitrogen 40 MG/DL Creatinine 1.76 MG/DL Random Glucose 125 MG/DL Calcium Level 8.8 MG/DL Phosphorus Level 1.6 MG/DL Magnesium Level 2.6 MG/DL Sodium Level 144 MEQ/L Potassium Level 3.9 MEQ/L Chloride Level 113 MEQ/L Carbon Dioxide Level 24.4 MEQ/L Anion Gap 7 MEQ/L Estimat Glomerular Filtration Rate 39 ML/MIN Administered Medications Medications (Trade) Dose Ordered Sig/Pa Route PRN Reason Start Time Stop Time Status Last Admin Dose Admin Sodium Chloride (NS Flush) 2 ml BID IV FLUSH 02/10/17 09:00 02/20/17 09:16 Senna/Docusate Sodium (Pat-Colace) 1 tab BID PO 02/10/17 09:00 02/20/17 09:14 Insulin Aspart (NovoLOG SUPPLEMENTAL SCALE) 1 ACHS SLIDING SCALE SQ 02/10/17 08:00 02/19/17 22:16 Acyclovir (Zovirax) 400 mg BID PO 02/10/17 09:00 02/20/17 09:14 Atorvastatin Calcium (Lipitor) 20 mg HS PO 02/10/17 21:00 02/19/17 21:49 Benzonatate (Tessalon) 100 mg BID PRN PO COUGH 02/09/17 23:00 02/10/17 17:34 Calcitriol (Rocaltrol) 0.25 mcg DAILY PO 02/10/17 09:00 02/20/17 09:13 Carvedilol (Coreg) 6.25 mg BIDAC PO 02/10/17 07:00 02/20/17 05:55 Oxycodone HCl (Roxicodone) 10 mg Q6H PRN PO PRN PAIN 3-5 02/09/17 23:00 02/20/17 09:15 Pantoprazole Sodium (Protonix) 40 mg DAILY PO 02/10/17 09:00 02/20/17 09:14 Oxycodone HCl (OxyCONTIN CR) 30 mg BID PRN PO PAIN 3-5 02/09/17 23:00 02/16/17 20:25 Temazepam (Restoril) 30 mg HS PRN PO INSOMNIA 02/09/17 23:00 02/14/17 21:01 Aspirin (Ecotrin Ec) 81 mg DAILY PO 02/11/17 09:00 02/20/17 09:14 Clonidine (Catapres) 0.1 mg Q6H PRN PO sys >160 or thomas >90 02/11/17 03:00 02/15/17 00:26 Hydralazine HCl (Apresoline Inj) 10 mg Q3H PRN IV PUSH SYS BP GREATER THAN 160 MMHG 02/13/17 09:15 02/15/17 12:11 Clopidogrel Bisulfate (Plavix) 75 mg DAILY PO 1/10/18 09:00 02/20/17 09:14 Amlodipine Besylate (Norvasc) 10 mg DAILY PO 02/15/17 20:30 02/20/17 09:14 Dronabinol (Marinol) 5 mg BID@11,16 PO 02/16/17 16:00 02/19/17 12:38 Heparin Sodium (Porcine) (Heparin Inj) 5,000 units Q12HR SQ 02/18/17 12:15 02/20/17 09:13 Megestrol Acetate (Megace Liq) 400 mg DAILY PO 02/18/17 12:15 02/20/17 09:16 Sodium Chloride 1,000 ml @ 84 mls/hr [id number] IV 02/19/17 10:30 02/20/17 01:28 Insulin Detemir (Levemir Inj) 5 units Q12HR SQ 02/19/17 21:00 02/20/17 09:13 Objective Remarks GENERAL: Cachetic, chronically ill appearing male, lying supine in bed. H SKIN: Warm and dry. HEAD: Normocephalic. EYES: No injection or drainage. NECK: Supple, trachea midline. CARDIOVASCULAR: +S1/S2 RESPIRATORY: anterior tran with scattered rhonchi. GASTROINTESTINAL: Abdomen soft, non-tender, nondistended. EXTREMITIES: bilateral feet are in heel sparing floaters. patient with multiple chronic skin changes/wounds to feet. MUSCULOSKELETAL: Muscle wasting throughout. NEUROLOGICAL: awake, tracks with eyes. answers some questions. falls asleep during interview. Assessment/Plan Problem List: (1) Multiple myeloma ICD Codes: C90.00 - Multiple myeloma not having achieved remission Plan: 02/20: patient being discharged today either to home or SNF. Patient's advised to arrange follow up with patient's oncologist in [place]. She states she has spoken with the oncologist today and will arrange follow up. If patient ends up going to SNF locally, we would be happy to follow Mr. Freeman in clinic if needed. (d/w ) --patient follows with an oncologist in [place]. --records not available for review at present. Assessment 66y/o male with multiple medical problems. Oncology consulted for h/o multiple myeloma. h/o HTN, DM, COPD, tobacco use, h/o prostate cancer. --was transfer from [facility]. Attending Statement The exam, history, and the medical decision-making described in the above note were completed with the assistance of the mid-level provider. I reviewed and agree with the findings presented. I attest that I had a [id number] encounter with the patient on the same day, and personally performed and documented my assessment and findings in the medical record. No new c/o at bedside. Hoping to be d/c today. will follow up with his oncologist in [place]. sign off available prn. Jannette Menedz Feb 20, 2017 13:29 Gal Walsh MD Feb 20, 2017 18:31
[2017-02-20] MEDS: DRONABINOL 5 MG CAP PO SCH ×2 (13:42→17:53)
--- NOTE | 2017-02-20 14:19 | MB ---
cc: JEFF SANTIAGO M.D. DATE OF CONSULTATION 02/19/2017 REASON FOR CONSULTATION Consult requested by hospitalist for evaluation of multiple myeloma. HISTORY OF PRESENT ILLNESS Kirt is a 66-year-old male who has been treated for multiple myeloma at the [facility] in [place] by the oncologist. According to the patient's , who is a poor historian, he was diagnosed with myeloma about two years ago. The patient has multiple lines of chemotherapy. Most recently, he is daratumumab. The details of those are not available. The patient was transferred to [facility] from [facility] for vascular surgery. He was found to have peripheral arterial disease and he has discoloration of the left foot toes. The patient underwent angioplasty with stent placement by the vascular surgeon. Given that the patient is still in the hospital, the family is requesting oncology consultation for the myeloma. The patient is very debilitated, he is cachectic. I am not sure what treatment he has had so far. The patient is going to be discharged either to rehab or back to home soon. The rest of the review of systems is unable to be obtained due to the patient's poor historian. PAST MEDICAL HISTORY 1. Multiple myeloma under chemotherapy 2. Hypertension 3. Diabetes mellitus 4. COPD 5. Gastroesophageal reflux disease 6. Peripheral vascular disease 7. Prostate cancer PAST SURGICAL HISTORY 1. Radical prostatectomy 2. Cataract surgery 3. [id number] placement ALLERGIES None MEDICATIONS Please see EMR. FAMILY HISTORY The family history is significant for esophageal cancer. SOCIAL HISTORY The patient smokes cigarettes heavily. Does not drink alcohol. PHYSICAL EXAM This is a malnourished, cachectic white male in no apparent distress. VITAL SIGNS: Temperature 97.8, heart rate is 70, blood pressure 143/73, O2 saturation 97%. HEENT: Bitemporal wasting noted. NECK: No lymphadenopathy noted. LUNGS: Lungs are clear. No wheezing, rhonchi or rales. HEART: Regular rate and rhythm. ABDOMEN: Soft and nontender. EXTREMITIES: No pedal edema, discoloration of the left toe noted. SKIN: No significant lesions noted. ASSESSMENT 1. Multiple myeloma that was diagnosed two years ago according to his . The patient has been on multiple lines of chemotherapy. Most recently he is on daratumumab. 2. Peripheral arterial disease status post angioplasty and stent placement. 3. Cachexia PLAN I have reviewed his available records and I have discussed with the patient and his . The patient is under the care of oncologist in [place]. Those records are not available. The patient does not require any active treatment for his myeloma during this hospitalization. The patient is going to be discharged soon either to home or to the rehab center. My recommendation is that the patient should go back to see his oncologist in [place]. I do not think the patient would be able to travel from [place] to our oncology center for his treatment due to extreme cachexia and poor performance status. We do not have his records of the myeloma either. The patient's agree with that. However, she mentioned that the patient's sister wanted treatment for his myeloma here. I do not recommend any inpatient treatment for his myeloma. Once the patient is discharged to home, then he could be referred to our clinic or he could go back to see his primary oncologist in [place]. Thank you for asking my opinion. MD JUDY Lowe/HALLIE /9:51 PM /7:40 AM
--- NOTE | 2017-02-20 15:43 | HHI.PR ---
Subjective Remarks patient not eating. and sister at bedside. denies pain or sob Objective Vitals Vital Signs Date Time Temp Pulse Resp B/P (MAP) Pulse Ox O2 Delivery O2 Flow Rate FiO2 02/20/17 08:00 97.7 78 20 136/64 (88) 96 02/20/17 05:31 81 02/20/17 04:56 97.8 78 17 142/71 (94) 98 02/20/17 04:36 75 02/20/17 03:39 82 02/20/17 00:36 97.2 80 17 139/67 (91) 96 02/19/17 20:51 97.5 78 17 174/77 (109) 98 02/19/17 15:54 74 02/19/17 15:53 97.8 78 16 120/56 (77) 93 I/O 02/19/17 02/19/17 02/19/17 02/20/17 02/20/17 02/20/17 07:00 15:00 23:00 07:00 15:00 23:00 Intake Total 120 ml 474 ml Output Total 300 ml 1000 ml Balance -180 ml -526 ml Intake Oral 120 ml 474 ml Output Urine Total 300 ml 1000 ml # Bowel Movements 0 0 Result Diagram: 02/20/17 1139 02/20/17 1139 Imaging Last Impressions Renal Ultrasound 02/19/17 0000 Signed Impressions: Service Date/Time: Sunday, February 19, 2017 13:46 - CONCLUSION: Normal right kidney with questionable mild increased echogenicity of the cortex. No left kidney is visualized. Lopez catheter in place in the bladder. Incidentally appreciated is suggestion of a right pleural effusion. Manuel Bai MD Objective Remarks GENERAL: Patient appearing older than stated age, frail, in no apparent distress. SKIN: Left great toe is necrotic. Second and third toes also purple. CARDIOVASCULAR: Regular rate and rhythm without murmurs, gallops, or rubs. RESPIRATORY: Clear to auscultation. Breath sounds equal bilaterally. No wheezes , rales, or rhonchi. GASTROINTESTINAL: Abdomen soft, non-tender, nondistended. No guarding. MUSCULOSKELETAL: I am unable to palpate a dorsalis pedis pulse bilaterally. Left foot cooler compared to right. NEUROLOGICAL: Awake and alert. Normal speech. Procedures sp LLE aortogram with runoff Medications and IVs Current Medications Medications (Trade) Dose Ordered Sig/Pa Route Start Time Stop Time Status Last Admin (NS Flush) 2 ml UNSCH PRN IV FLUSH 02/09/17 21:45 (NS Flush) 2 ml BID IV FLUSH 02/10/17 09:00 02/20/17 09:16 (Zofran Inj) 4 mg Q6H PRN IVP 02/09/17 21:45 (Tylenol) 650 mg Q6H PRN PO 02/09/17 21:45 (Morphine Inj) 2 mg Q3H PRN IV PUSH 02/09/17 21:45 (Pat-Colace) 1 tab BID PO 02/10/17 09:00 02/20/17 09:14 (Milk Of Magnesia Liq) 30 ml Q12H PRN PO 02/09/17 21:45 (Senokot) 17.2 mg Q12H PRN PO 02/09/17 21:45 (Dulcolax Supp) 10 mg DAILY PRN RECTAL 02/09/17 21:45 (Lactulose Liq) 30 ml DAILY PRN PO 02/09/17 21:45 (D50w (Vial) Inj) 50 ml UNSCH PRN IV PUSH 02/09/17 23:00 (Glucagon Inj) 1 mg UNSCH PRN OTHER 02/09/17 23:00 (NovoLOG SUPPLEMENTAL SCALE) 1 ACHS SLIDING SCALE SQ 02/10/17 08:00 02/19/17 22:16 (Zovirax) 400 mg BID PO 02/10/17 09:00 02/20/17 09:14 (Lipitor) 20 mg HS PO 02/10/17 21:00 02/19/17 21:49 (Tessalon) 100 mg BID PRN PO 02/09/17 23:00 02/10/17 17:34 (Rocaltrol) 0.25 mcg DAILY PO 02/10/17 09:00 02/20/17 09:13 (Coreg) 6.25 mg BIDAC PO 02/10/17 07:00 02/20/17 05:55 (Roxicodone) 10 mg Q6H PRN PO 02/09/17 23:00 02/20/17 09:15 (Protonix) 40 mg DAILY PO 02/10/17 09:00 02/20/17 09:14 (OxyCONTIN CR) 30 mg BID PRN PO 02/09/17 23:00 02/16/17 20:25 (Restoril) 30 mg HS PRN PO 02/09/17 23:00 02/14/17 21:01 (Ecotrin Ec) 81 mg DAILY PO 02/11/17 09:00 02/20/17 09:14 (Catapres) 0.1 mg Q6H PRN PO 02/11/17 03:00 02/15/17 00:26 (Apresoline Inj) 10 mg Q3H PRN IV PUSH 02/13/17 09:15 02/15/17 12:11 (Plavix) 75 mg DAILY PO 02/14/17 09:00 02/20/17 09:14 (Norvasc) 10 mg DAILY PO 02/15/17 20:30 02/20/17 09:14 (Marinol) 5 mg BID@11,16 PO 02/16/17 16:00 02/20/17 13:42 (Heparin Inj) 5,000 units Q12HR SQ 02/18/17 12:15 02/20/17 09:13 (Megace Liq) 400 mg DAILY PO 02/18/17 12:15 02/20/17 09:16 Sodium Chloride 1,000 ml @ 84 mls/hr [id number] IV 02/19/17 10:30 02/20/17 13:42 (Levemir Inj) 5 units Q12HR SQ 02/19/17 21:00 02/20/17 09:13 A/P Problem List: (1) Cellulitis ICD Code: L03.90 - Cellulitis, unspecified (2) Lower limb ischemia ICD Code: I99.8 - Other disorder of circulatory system (3) CKD (chronic kidney disease) ICD Code: N18.9 - Chronic kidney disease, unspecified (4) Diabetes ICD Code: E11.9 - Type 2 diabetes mellitus without complications (5) Tobacco abuse ICD Code: Z72.0 - Tobacco use (6) Severe protein-calorie malnutrition ICD Code: E43 - Unspecified severe protein-calorie malnutrition Status: Acute Plan: The patient is a nutritional risk with weight loss, low BMI. The patient has been seen by dietitian. There is weight loss. The patient has been seen by dietitian recommended regular diet, Glucerna shakes 3 times a day. 02/18 Patient not eating or drinking fluids enough as per family and nurse. Will order a calorie count for PEG tube placement if caloric intake is inadequate. Case discussed with the patient and his was at bedside. The patient was unable to comprehend and unable to explain to me what I just explained to him. At this moment the patient does not have capacity to make his own medical decisions. I defer to the with the next of kin. The stated that the patient would like to have a PEG tube placed if that would help him improve his health and he is not actively dying. 02/19 Calorie count started - results on 02/21. 02/20 Patient eating 0% of meals. Patient's is requesting hospice, however wishes to have Peg placement for comfort. Will consult palliative care and hospice. Copnsult GI for PEG placement. (7) Poor appetite ICD Code: R63.0 - Anorexia Plan: The patient was started on Marinol. Continue. 02/18 Will add Megace. Patient is currently on Plavix - will add heparin SQ to counteract hypercoagulable state that could be induced with Megace. 02/19 continue Marinol and Megace. Assessment and Plan 66-year-old male presented with left lower extremity ischemia and cellulitis. Left great toe is necrotic, second and third great toe purple start on heparin drip on admission. There was evidence of cellulitis on presentation the patient was started on IV Rocephin. Restless surgery consulted. The patient underwent angioplasty. The patient was treated with aspirin and statin and counseled to quit smoking tobacco. The patient was cleared bibasilar surgery for DC. Patient will need outpatient follow-up with podiatry. Diabetes: The patient was placed on SSI with insulin and Accu-Cheks. Placed on regular diet since he was not eating much. Blood sugars became severely elevated in the 200 range, and the patient was started on insulin Levemir 5 units subcutaneous twice a day. Blood sugars then improved. The patient also was on D5 water with bicarbonate which was discontinued. 02/18 Continue SSI with insulin Novolog. Monitor Accuchecks. Will DC Levemir since blood sugars are lower since patient not eating. 02/20 blood sugars stable. SHIRA on CKD III: Unsure what his baseline is. Stable today Follow renal functions. Avoid nephrotoxins. 02/18 Creatinine is trending up. Possibly a combination of postobstructive nephropathy along with some dehydration. As per RN report there is retention of 500 ml of urine in bladder. Will insert lopez catheter and start on Flomax. 02/19 Continue lopez catheter. Creatinine continues to trend up. Likely secondary to poor oral intake and dehydration. I will start the patient IV normal saline and continue to monitor BUN/creatinine. Avoid nephrotoxins. 02/20 creatinine is improving and trending down. from 2.25 to 1.76. Multiple myeloma: He was evaluated by oncology outside hospital. No acute treatment indicated at this point. The recommendation. Outpatient follow-up is advised. Patient can continue same home medications. 02/19 patient's family is requesting an oncology consultation. Will consult medical oncology. The patient is undergoing treatment as an outpatient and this has been on hold to the patient has been admitted to the hospital. 02/20 appreciate medical oncology consultation. Recommended follow-up as an outpatient with oncologist in [place]. Chronic pain: Continue pain medication. Tobacco abuse: - Counseled patient on complete cessation given his significant vascular disease. HTN: Controlled continue amlodipine. Generalized weakness: Consut PT - patient will need rehab GI prophylaxis: Stool softener PRN constipation. Discharge Planning Pending palliative care and hospice consult. Problem Qualifiers (1) Cellulitis: Qualified Codes: L03.116 - Cellulitis of left lower limb (2) CKD (chronic kidney disease): Qualified Codes: N18.3 - Chronic kidney disease, stage 3 (moderate) (3) Diabetes: Qualified Codes: E11.51 - Type 2 diabetes mellitus with diabetic peripheral angiopathy without gangrene Gulshan Sandoval MD Feb 20, 2017 15:43
--- NOTE | 2017-02-20 17:11 | PD.CONS ---
HPI History of Present Illness This is a 66 year old male with multiple myeloma who was originally admitted to [facility] for a discolored toe and then transferred to [facility] for vascular surgery consult. He is s/p LLE angiogram and stent placement, on heparin and plavix which are currently being held. GI has been consulted for poss PEG tube placement. He is been eating very little if any, calorie count is pending. Thus far he is eating 0% of meals. is considering hospice vs rehab and wishes for him to have feeding tube. is now decision maker. Pt noncontributory other than to tell me that he really is eating his meals. When asked if he is having difficulty or why he is not eating much he does not answer. (Cassandra Montero) PFSH Past Medical History multiple myeloma, hypertension, diabetes, COPD, GERD, tobacco abuser, and previous prostate cancer Past Surgical History Radical prostatectomy Bilateral cataract surgery Port placement (Cassandra Montero) Coded Allergies: No Known Allergies (Verified Allergy, Unknown, 02/09/17) Family History Father with history of esophageal cancer Social History Patient is a lifelong, current and every day smoker. Has been smoking at least three-quarter packs a day. He denies alcohol use or illicit drug use. (Cassandra Montero) Review of Systems noncontributory (Cassandra Montero) GI Exam Vitals I&O Vital Signs Date Time Temp Pulse Resp B/P (MAP) Pulse Ox O2 Delivery O2 Flow Rate FiO2 02/20/17 08:00 97.7 78 20 136/64 (88) 96 02/20/17 05:31 81 02/20/17 04:56 97.8 78 17 142/71 (94) 98 02/20/17 04:36 75 02/20/17 03:39 82 02/20/17 00:36 97.2 80 17 139/67 (91) 96 02/19/17 20:51 97.5 78 17 174/77 (109) 98 I/O 02/19/17 02/19/17 02/19/17 02/20/17 02/20/17 02/20/17 07:00 15:00 23:00 07:00 15:00 23:00 Intake Total 120 ml 474 ml Output Total 300 ml 1000 ml Balance -180 ml -526 ml Intake Oral 120 ml 474 ml Output Urine Total 300 ml 1000 ml # Bowel Movements 0 0 Imaging Last Impressions Renal Ultrasound 02/19/17 0000 Signed Impressions: Service Date/Time: Sunday, February 19, 2017 13:46 - CONCLUSION: Normal right kidney with questionable mild increased echogenicity of the cortex. No left kidney is visualized. Watson catheter in place in the bladder. Incidentally appreciated is suggestion of a right pleural effusion. Manuel Bai MD Laboratory Test 02/20/17 11:39 White Blood Count 11.0 TH/MM3 Red Blood Count 2.69 MIL/MM3 Hemoglobin 8.4 GM/DL Hematocrit 24.9 % Mean Corpuscular Volume 92.7 FL Mean Corpuscular Hemoglobin 31.4 PG Mean Corpuscular Hemoglobin Concent 33.8 % Red Cell Distribution Width 13.5 % Platelet Count 324 TH/MM3 Mean Platelet Volume 7.8 FL Blood Urea Nitrogen 40 MG/DL Creatinine 1.76 MG/DL Random Glucose 125 MG/DL Calcium Level 8.8 MG/DL Phosphorus Level 1.6 MG/DL Magnesium Level 2.6 MG/DL Sodium Level 144 MEQ/L Potassium Level 3.9 MEQ/L Chloride Level 113 MEQ/L Carbon Dioxide Level 24.4 MEQ/L Anion Gap 7 MEQ/L Estimat Glomerular Filtration Rate 39 ML/MIN Physical Examination GEN: cachectic HEENT: PERRL; normocephalic; atraumatic; no jaundice. CHEST: diminshed CARDIAC: RRR ABDOMEN: Soft, nondistended, nontender; no hepatosplenomegaly; bowel sounds are present in all four quadrants. EXTREMITIES: No clubbing, cyanosis, or edema. SKIN: Normal; no rash; no jaundice. CLOTHES SHAKER: awake (Cassandra Montero) Assessment and Plan Plan ASSESSMENT - cachexia, poor PO intake - unclear etiology. hx multiple myeloma. s/p angiogram and stenting LLE for necrotic toe. GI consulted for PEG tube placement calorie count pending but pt eating little or 0 % d/w pts and she wishes to proceed. d/w primary. plavix, heparin held PLAN - EGD W/ PEG tube placement - obtain consent - NPO after MN - nutrition consult for TF - hold heparin and plavix - 1g ancef information security consultant - further recs to follow pt seen by myself and Dr Jaramillo and this note is written on his behalf (Cassandra Montero) Physician Comments Patient seen and examined Agree with above Continue with current supportive care Monitor labs Plan for PEG placement tomorrow (Maurice Jaramillo MD) Cassandra Montero Feb 20, 2017 17:11 Maurice Jaramillo MD Feb 20, 2017 23:56
--- NOTE | 2017-02-20 18:47 | PD.CONS ---
Consult Service Palliative Care Consult Requested By Dr. Sanchez . Primary Care Physician No Primary Care Physician locally, sees Dr. Nguyen in [place]. Reason for Consultation a. To assist with evaluation and management of symptoms including: Pain, decreased appetite b. To assist medical decision maker(s) with: better understanding of current medical conditions; weighing benefits/burdens of medical treatment options; making medical treatment decisions. HPI History of Present Illness This is a very pleasant 66-year-old male transferred from [facility] in [place] for peripheral artery disease evaluation. He had suffered an injury of his left great toe which resulted in a small wound at the tip of the toe, then stubbed his toe at home on a table further injuring the toe. The toe had become purple and cool consistent with acute ischemia and IV heparin therapy was initiated. Dr. Stokes evaluated him at [place] and felt that his best option due to his severe peripheral vascular disease and chronic kidney disease with creatinine of 1.88 was to do a carbon dioxide peripheral procedure for which the patient was transferred to [facility] to be evaluated by Dr. Amaral. He has a complicated history of diabetes mellitus type 2, COPD, hypertension, GERD, prostate cancer status post prostatectomy in 2007 and stage III IgG kappa multiple myeloma with complex karyotype diagnosed March 2015 status post radiation therapy to the right pelvis and acetabulum in April 2015. Subsequently he was treated with CyBorD with partial response which was discontinued due to intolerance to oral Cytoxan. The patient was then treated with RVD which was discontinued due to intolerance to Revlimid, then treated with Velcade and Kyprolis and had progression of the disease. The combination of dorsal ax and kind prolapse every 2 weeks has achieved a response. He was last seen by his oncologist, Dr. Fitzpatrick on 01/10/2017. Clinical data: * Laboratory: WBC 11.0, Hgb 8.4, HCT 24.9, PLT 324, sodium 144, potassium 3.9, BUN 40, creatinine 1.76, GFR 39, phosphorus 1.6, magnesium 2.6. * Radiology: Renal ultrasound shows Normal right kidney with questionable mild increased echogenicity of the cortex. No left kidney is visualized. Incidental appreciation is suggested of a right pleural effusion. Upon transfer to [facility] he was evaluated by Dr. Feezor and subsequently underwent left lower extremity angiogram, left SFA orbital atherectomy with angioplasty and stent 6 x 40 self-expanding stent, left perineal artery angioplasty with 2-2.5 mm tapered balloon. He is stable for discharge per vascular surgery. Renal indices have improved. He was accepted at the [facility] and rehabilitation however the family lives in [place] and instead prefers to take him home with home health. They are aware of the hospice option and are open to pursuing that if the patient continues to decline. Function/Cognitive Trajectory He had previously been active and able to walk or even jog. Currently prior to his hospital admission he had been unable to walk a block. Per his his current function includes walking to the kitchen to get coffee but is sedentary and sits most of the time. Cognitively he is oriented and intermittently able to participate in conversations but appears to lose interest and fall asleep frequently, compromising his insight. . Review of Systems Constitutional: COMPLAINS OF: Fatigue, Weight loss, Change in appetite Respiratory: COMPLAINS OF: Shortness of breath Cardiovascular: COMPLAINS OF: Dyspnea on Exertion, Claudication Gastrointestinal: COMPLAINS OF: Anorexia Musculoskeletal: COMPLAINS OF: Muscle aches Integumentary: COMPLAINS OF: Non-healing sores Hematologic/Lymphatics: COMPLAINS OF: Bruising Past Family Social History Coded Allergies: No Known Allergies (Verified Allergy, Unknown, 02/09/17) Past Medical History Stage III IgG multiple myeloma with complex karyotype Chronic tobacco abuse COPD GERD Hypertension Diabetes mellitus type 2 Prostate cancer status post prostatectomy Polymyalgia rheumatica Osteoarthritis Bronchitis Chronic kidney disease stage III Peripheral artery disease . Past Surgical History Radical prostatectomy Bilateral cataract surgery Port placement Vasectomy . Reported Medications Reported Meds & Active Scripts Active Amlodipine (Amlodipine Besylate) 10 Mg Tab 10 Mg PO DAILY Levemir Inj (Insulin Detemir) 1,000 unit/ 10 ML Vial 5 Units SQ Q12HR Do not mix with any other Insulin. Plavix (Clopidogrel Bisulfate) 75 Mg Tab 75 Mg PO DAILY Lipitor (Atorvastatin Calcium) 20 Mg Tab 20 Mg PO HS Reported Clonidine (Clonidine HCl) 0.2 Mg Tab 0.2 Mg PO Q2HR PRN Humalog (Insulin Lispro) 100 Unit/Ml Cartridge ACHS SLIDING SCALE Oxycodone (Oxycodone HCl) 10 Mg Tab 10 Mg PO QID PRN Protonix (Pantoprazole Sodium) 40 Mg Tab 40 Mg PO DAILY Phenergan (Promethazine HCl) 25 Mg Tablet 25 Mg PO EVERY 6HRS Restoril (Temazepam) 30 Mg Cap 30 Mg PO HS PRN Zofran (Ondansetron HCl) 4 Mg Tab 4 Mg PO BID PRN Heparin 2,500 Unit/250 ml-Ns (Heparin Sod,Porcine/0.9 % NaCl) 2,500 Unit/250 Ml (10 Unit/Ml) Iv.soln IV Ceftriaxone 1 gm-D5w Bag (Ceftriaxone in Is-Osm Dextrose) 1 Gram/50 Ml Piggyback IV DAILY Coreg (Carvedilol) 6.25 Mg Tab 6.25 Mg PO BIDAC Coreg (Carvedilol) 3.125 Mg Tab Mg PO BID Calcitriol 0.25 Mcg Cap 0.25 Mcg PO DAILY Tessalon Perles (Benzonatate) 100 Mg Cap 100 Mg PO BID PRN Acyclovir 400 Mg Tab 400 Mg PO BID Tylenol Extra Strength (Acetaminophen) 500 Mg Tablet PO . Current Medications Medications (Trade) Dose Ordered Sig/Pa Route Start Time Stop Time Status Last Admin (NS Flush) 2 ml UNSCH PRN IV FLUSH 02/09/17 21:45 (NS Flush) 2 ml BID IV FLUSH 02/10/17 09:00 02/20/17 09:16 (Zofran Inj) 4 mg Q6H PRN IVP 02/09/17 21:45 (Tylenol) 650 mg Q6H PRN PO 02/09/17 21:45 (Morphine Inj) 2 mg Q3H PRN IV PUSH 02/09/17 21:45 (Pat-Colace) 1 tab BID PO 02/10/17 09:00 02/20/17 09:14 (Milk Of Magnesia Liq) 30 ml Q12H PRN PO 02/09/17 21:45 (Senokot) 17.2 mg Q12H PRN PO 02/09/17 21:45 (Dulcolax Supp) 10 mg DAILY PRN RECTAL 02/09/17 21:45 (Lactulose Liq) 30 ml DAILY PRN PO 02/09/17 21:45 (D50w (Vial) Inj) 50 ml UNSCH PRN IV PUSH 02/09/17 23:00 (Glucagon Inj) 1 mg UNSCH PRN OTHER 02/09/17 23:00 (NovoLOG SUPPLEMENTAL SCALE) 1 ACHS SLIDING SCALE SQ 02/10/17 08:00 02/19/17 22:16 (Zovirax) 400 mg BID PO 02/10/17 09:00 02/20/17 09:14 (Lipitor) 20 mg HS PO 02/10/17 21:00 02/19/17 21:49 (Tessalon) 100 mg BID PRN PO 02/09/17 23:00 02/10/17 17:34 (Rocaltrol) 0.25 mcg DAILY PO 02/10/17 09:00 02/20/17 09:13 (Coreg) 6.25 mg BIDAC PO 02/10/17 07:00 02/20/17 05:55 (Roxicodone) 10 mg Q6H PRN PO 02/09/17 23:00 02/20/17 09:15 (Protonix) 40 mg DAILY PO 02/10/17 09:00 02/20/17 09:14 (OxyCONTIN CR) 30 mg BID PRN PO 02/09/17 23:00 02/16/17 20:25 (Restoril) 30 mg HS PRN PO 02/09/17 23:00 02/14/17 21:01 (Ecotrin Ec) 81 mg DAILY PO 02/11/17 09:00 02/20/17 09:14 (Catapres) 0.1 mg Q6H PRN PO 02/11/17 03:00 02/15/17 00:26 (Apresoline Inj) 10 mg Q3H PRN IV PUSH 02/13/17 09:15 02/15/17 12:11 (Plavix) 75 mg DAILY PO 02/14/17 09:00 Future Hold 02/20/17 09:14 (Norvasc) 10 mg DAILY PO 02/15/17 20:30 02/20/17 09:14 (Marinol) 5 mg BID@11,16 PO 02/16/17 16:00 02/20/17 13:42 (Heparin Inj) 5,000 units Q12HR SQ 02/18/17 12:15 Future Hold 02/20/17 09:13 (Megace Liq) 400 mg DAILY PO 02/18/17 12:15 02/20/17 09:16 Sodium Chloride 1,000 ml @ 84 mls/hr [id number] IV 02/19/17 10:30 02/20/17 13:42 (Levemir Inj) 5 units Q12HR SQ 02/19/17 21:00 02/20/17 09:13 Cefazolin Sodium 1000 mg/Sodium Chloride 100 ml @ 200 mls/hr [employer] ENGINEER IV 02/20/17 17:00 02/23/17 16:59 . Family History Father at age 52 of esophageal cancer. Mother in her 80s 2 years ago. . Substance Use Tobacco: Has smoked 1-2 packs per day since he was a teenager, continues to smoke 1/2-1 pack per day until hospital admission [facility]. Alcohol: Rare use. Prescription med abuse: No history of prescription medication abuse. Illicits: No history of illicit drug use. . Psychosocial History He was born and raised in [place] where he completed his education and worked as a part factory maintenance manager. 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 He has been to his Jannet for 3 years however their relationship has been considerably longer. He has 3 children, one boy and 2 girls from a previous marriage. No contact information is available for them at this time. . Spiritual/Cultural Factors He is a Protestant and would enjoy retail sales lead visits. Living Will: Copy in medical record Health Care Surrogate: Copy in medical record Durable Power of [place] Sawyer: Never completed Health Care Surrogate(s): Patient's , Gayle Freeman is the primary health care surrogate with his sister, Samanta Tapia as his alternate. . Physical Exam Vital Signs Date Time Temp Pulse Resp B/P (MAP) Pulse Ox O2 Delivery O2 Flow Rate FiO2 02/20/17 08:00 97.7 78 20 136/64 (88) 96 02/20/17 05:31 81 02/20/17 04:56 97.8 78 17 142/71 (94) 98 02/20/17 04:36 75 02/20/17 03:39 82 02/20/17 00:36 97.2 80 17 139/67 (91) 96 02/19/17 20:51 97.5 78 17 174/77 (109) 98 Exam CONSTITUTIONAL/GENERAL: This is a middle-aged cachectic male, lying in bed in no acute distress. TUBES/LINES/DRAINS: Left chest port. SKIN: No jaundice, rashes, or lesions. Ecchymoses on upper extremities. Left foot purple across the great and second toe extending under the foot. Underside of great toe with wrinkled black tissue. HEAD: Atraumatic. Normocephalic. EYES: Pupils equal and round and reactive. Extraocular motions intact. No scleral icterus. No injection or drainage. Fundi not examined. ENT: Hearing grossly normal. Nose without bleeding or purulent drainage. Throat without visible erythema, exudates, masses, or lesions. NECK: Trachea midline. Supple, nontender. No palpable thyroid enlargement or nodularity. CARDIOVASCULAR: Regular rate and rhythm without murmurs, gallops, or rubs. No JVD. Peripheral pulses symmetric. RESPIRATORY/CHEST: Symmetric, unlabored respirations. Clear to auscultation. Breath sounds equal bilaterally. No wheezes, rales, or rhonchi. GASTROINTESTINAL: Abdomen soft, non-tender, nondistended. No hepato-splenomegaly , or palpable masses. No guarding. Bowel sounds present. GENITOURINARY: Without palpable bladder distension. Watson catheter in place. MUSCULOSKELETAL: Nonpalpable pulses, muscle wasting, bilateral feet in podus boots NEUROLOGICAL: Awake, oriented, doses off during conversation intermittently. PSYCHIATRIC: No obvious anxiety/depression. no apparent hallucinations or other psychotic thought process. . Diagnostic Tests Laboratory Laboratory Tests Test 02/18/17 04:55 02/19/17 06:20 02/20/17 11:39 White Blood Count 10.8 TH/MM3 (4.0-11.0) 12.9 TH/MM3 (4.0-11.0) 11.0 TH/MM3 (4.0-11.0) Red Blood Count 3.03 MIL/MM3 (4.50-5.90) 3.01 MIL/MM3 (4.50-5.90) 2.69 MIL/MM3 (4.50-5.90) Hemoglobin 9.5 GM/DL (13.0-17.0) 9.5 GM/DL (13.0-17.0) 8.4 GM/DL (13.0-17.0) Hematocrit 28.0 % (39.0-51.0) 27.7 % (39.0-51.0) 24.9 % (39.0-51.0) Mean Corpuscular Volume 92.3 FL (80.0-100.0) 92.0 FL (80.0-100.0) 92.7 FL (80.0-100.0) Mean Corpuscular Hemoglobin 31.3 PG (27.0-34.0) 31.5 PG (27.0-34.0) 31.4 PG (27.0-34.0) Mean Corpuscular Hemoglobin Concent 34.0 % (32.0-36.0) 34.3 % (32.0-36.0) 33.8 % (32.0-36.0) Red Cell Distribution Width 13.7 % (11.6-17.2) 13.5 % (11.6-17.2) 13.5 % (11.6-17.2) Platelet Count 280 TH/MM3 (150-450) 350 TH/MM3 (150-450) 324 TH/MM3 (150-450) Mean Platelet Volume 8.1 FL (7.0-11.0) 8.4 FL (7.0-11.0) 7.8 FL (7.0-11.0) Blood Urea Nitrogen 36 MG/DL (7-18) 46 MG/DL (7-18) 40 MG/DL (7-18) Creatinine 2.06 MG/DL (0.60-1.30) 2.25 MG/DL (0.60-1.30) 1.76 MG/DL (0.60-1.30) Random Glucose 80 MG/DL (74-106) 202 MG/DL (74-106) 125 MG/DL (74-106) Calcium Level 9.2 MG/DL (8.5-10.1) 9.4 MG/DL (8.5-10.1) 8.8 MG/DL (8.5-10.1) Sodium Level 140 MEQ/L (136-145) 141 MEQ/L (136-145) 144 MEQ/L (136-145) Potassium Level 3.8 MEQ/L (3.5-5.1) 4.2 MEQ/L (3.5-5.1) 3.9 MEQ/L (3.5-5.1) Chloride Level 106 MEQ/L (98-107) 106 MEQ/L (98-107) 113 MEQ/L (98-107) Carbon Dioxide Level 25.5 MEQ/L (21.0-32.0) 24.5 MEQ/L (21.0-32.0) 24.4 MEQ/L (21.0-32.0) Anion Gap 9 MEQ/L (5-15) 11 MEQ/L (5-15) 7 MEQ/L (5-15) Estimat Glomerular Filtration Rate 33 ML/MIN (>89) 30 ML/MIN (>89) 39 ML/MIN (>89) Phosphorus Level 1.6 MG/DL (2.5-4.9) Magnesium Level 2.6 MG/DL (1.5-2.5) Result Diagram: 02/20/17 1139 02/20/17 1139 Imaging Last Impressions Renal Ultrasound 02/19/17 0000 Signed Impressions: Service Date/Time: Sunday, February 19, 2017 13:46 - CONCLUSION: Normal right kidney with questionable mild increased echogenicity of the cortex. No left kidney is visualized. Watson catheter in place in the bladder. Incidentally appreciated is suggestion of a right pleural effusion. Manuel Bai MD Procedures 02/14/17-left lower extremity angiogram, left SFA orbital atherectomy with angioplasty and stent 6 x 40 self-expanding stent, left perineal artery angioplasty with 2-2.5 mm tapered balloon. . Patient/Family Conference Present at Family Conference: Spoke with patient, and sister at bedside. Explained palliative care focus purpose and the below listed items. Extensively reviewed patient's past medical social and psychosocial history to include his recent hospitalization at [place] and the medical expert opinions which were rendered there. We further reviewed patient's goals of care and advance directives. The states that she was not aware that the form that she signed regarding resuscitation status was indeed a DNR, which is contrary to the wishes of the and the patient. At this time they do wish resuscitation. We discussed possible scenarios to include possible withdrawal from a ventilator if patient was unable to wean. The states that she did have to withdraw her daughter from a ventilator and is aware of the complications associated with that and is willing to do that again if necessary but at this time she wishes patient to be a FULL CODE. The patient was participating in the discussion at that time and agreed with that decision, as did his sister. We reviewed the course of chemotherapy and his current state of failure to thrive. Due to his poor appetite he has lost 80 pounds during the last year and it is the wish of the to have a PEG tube placed for supplemental nutrition to try to allow patient to gain strength. This is been discussed with GI and they are willing to place the PEG tube without withdrawal of the Plavix for 5 days, due to patient's recent peripheral stent placement. Hospice was discussed at length and they are aware of the hospice of [place] and open to that transition should chemotherapy in medical intervention be in adequate to allow the patient to continue with some quality of life. CODE STATUS was entered as requested. . Family Conference Time (mins): 80 (minutes) Family Conference Location: Bedside Issues Discussed: * Palliative care role, purpose, approach * Additional medical, psychosocial, and spiritual history * Patients general health, functional status, and cognitive changes in the months leading up to the current hospitalization * Patient/family understanding of the current medical problems * Patient/family understanding of prognosis * Patients goals of care as best understood from advance directives and/or conversations and/or values * Current medical treatment options and benefits/burdens of those options * Likely scenarios comparing ongoing aggressive care with a transition to comfort measures only * Questions answered to the best of my ability * Palliative care contact information provided Assessment and Plan Disease Oriented Problem List: (1) Multiple myeloma (2) PAD (peripheral artery disease) (3) Severe protein-calorie malnutrition (4) Poor appetite (5) Lower limb ischemia (6) CKD (chronic kidney disease) (7) Tobacco abuse (8) Diabetes (9) Cellulitis Symptom Scale: (1) Pain, generalized 0-10 Scale: 7 (pain is primarily in his left foot but also has generalized full body pain) (2) Poor appetite 0-10 Scale: Unable to quantify (has lost more than 80 pounds in the last year.) Pertinent Non-Medical Issues Psychosocial:He was born and raised in [place] where he completed his education and worked as a part factory maintenance manager. 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 He has been to his Jannet for 3 years however their relationship has been considerably longer. He has 3 children, one boy and 2 girls from a previous marriage. No contact information is available for them at this time. Spiritual: He is a Protestant and would enjoy retail sales lead visits. Legal: His is his healthcare surrogate and his sister, Samanta is his alternate. Ethical issues impacting care: None noted. . Important Contacts : Gayle Freeman Sister: Samanta Tapia . Prognosis His prognosis is poor. He is cachectic with severe peripheral artery disease and continues to smoke. He has lost 80 pounds due to his poor performance status and failure to thrive. His wishes for placement of a PEG tube to try to restore some strength, and go home with home health once PEG tube is placed. He is likely to continue to decline given his multiple comorbidities and continued tobacco abuse. . Code Status: Full Code Plan PLAN: Legal decision maker: Patient has some difficulty focusing but is oriented. The is most appropriate for shared decision making with his , supported by his sister. Goals: Currently aggressive. CODE STATUS: FULL CODE SYMPTOMS: * Pain: Multifactorial to include multiple myeloma, peripheral artery disease and left lower extremity ischemia. At home he had been on both extended release oxycodone and OxyContin for breakthrough pain. He is currently receiving Roxicodone 10 mg every 6 hours as needed for pain 3-5 and OxyContin CR 30 mg twice a day as needed for pain 3-5. IV morphine sulfate is available on an as-needed basis 2 mg every 3 hours for pain 6-10. He has been receiving an average of 30 mg daily of Roxicodone. He is currently complaining of pain at 7/10 in his left foot. Patient has been advised that he needs to ask for his pain medicine as it is not scheduled. * Poor appetite: Multifactorial to include change in food, fatigue, pain. He has lost 80 pounds over the last year. The has requested placement of a PEG tube for supplemental feedings. I did discuss the risks and benefits of artificial feeding to include possible aspiration, infection and possible tube dislodgment. Family wishes to go forth with aggressive care however is aware of the patient's poor prognosis. The is open to hospice services if quality of life cannot be maintained with chemotherapy. SUMMARY: This is a very debilitated and cachectic 66-year-old male with stage III multiple myeloma being followed by an oncologist in [place] receiving Darzalex and Kyprolis every 2 weeks. His last dose was 01/10/17. He has been hospitalized, interrupting his chemotherapy, which had previously been providing a positive response. He has lost 80 pounds over the last year with failure to thrive, but wishes to continue with chemotherapy to try to maintain some quality of life. I extensively discussed hospice with the patient and family and the is open to that option should he continue to decline. As he lives in [place], they wish to pursue care closer to home and are requesting discharge home with home health after placement of a PEG tube. Contact information has been provided with the palliative care team for further questions or concerns. He would be hospice appropriate when goals become consistent. Palliative care will continue to follow the patient during hospital course as condition evolves, to assist patient/decision-maker with understanding of their medical conditions, weighing benefits/burdens of treatment options, for clarification of goals of treatment. Additionally will assist with any symptoms of palliative concern. . Time Spent Time Periods: 16:15- Total Floor Time (mins): 150 >50% Counseling/Coord of Care: Yes Thank you for the opportunity to participate in the care of Mr. Freeman. Attestation To help prompt me to consider important information that might be impacting today's encounter and assessment, information from prior notes written by myself or my colleagues may have been "brought forward" into today's note. My signature on this note, however, is an attestation that I personally performed the exam, history, and/or decision-making noted today, and, unless otherwise indicated, the interactions with patient, family, and staff as well as the review of records all occurred today. I also attest that the listed assessment and stated plan reflect my best clinical judgment today based on the combination of historical information, prior notes, and today's exam/ interactions. When time spent is documented, it refers only to time spent today by the signer, or if indicated, combined time spent today by collaborating physician/nurse practitioner. . Bouchra Nuno Feb 20, 2017 18:47
[2017-02-20] MEDS: ATORVASTATIN 20 MG TAB PO SCH (21:30)
[2017-02-21] VITALS (11 sets, daily range): BP systolic 144–168; BP diastolic 64–87; PULSE 56–91; RESP 20–23; TEMP 97.5–98.5; O2SAT 94–100
[2017-02-21] MEDS: SODIUM CHLOR 0.9% 1000 ML INJ 1,000 ML IV SCH ×3 (01:42→21:36)
[2017-02-21] MEDS ORDERED: LACTATED RINGER'S 1000 ML IV PRN (04:45)
[2017-02-21] MEDS ORDERED: SODIUM CHLORID 0.9% 500 ML IV PRN (04:45)
[2017-02-21] MEDS ORDERED: POVIDONE IODINE 5% (ANTISEPSIS KIT) 4 APPLICATIONS EACH NARE PRN (04:45)
[2017-02-21] MEDS ORDERED: CHLORHEXIDINE GLUCONATE 2 % 1 PACK (2 CLOTHS) TOPICAL PRN (04:45)
[2017-02-21] MEDS: oxyCODONE HCL 10 MG CONTROLLED RELEASE TAB PO PRN (06:01)
[2017-02-21] MEDS: CARVEDILOL 6.25 MG TAB PO SCH ×2 (06:02→18:45)
[2017-02-21] MEDS: INSULIN ASPART SUPPLEMENTAL SCALE SQ SCH ×4 (08:00→21:13)
[2017-02-21] MEDS: DOCUSATE SODIUM 50 MG/SENNA 8.6 MG TAB PO SCH ×2 (08:49→21:12)
[2017-02-21] MEDS: PANTOPRAZOLE SOD 40 MG DELAYED RELEASE TAB PO SCH (08:49)
[2017-02-21] MEDS: ASPIRIN EC 81 MG TABEC PO SCH (08:49)
[2017-02-21] MEDS: CALCITRIOL 0.25 MCG CAP PO SCH (08:49)
[2017-02-21] MEDS: MEGESTROL ACETATE SUSP 400 MG/10 ML CUP PO SCH (08:50)
[2017-02-21] MEDS: SODIUM CHLORIDE 0.9% FLUSH 10 ML FLUSH IV FLUSH SCH ×2 (08:50→21:15)
[2017-02-21] MEDS: ACYCLOVIR 200 MG CAP PO SCH ×2 (08:54→21:13)
[2017-02-21] MEDS: INSULIN DETEMIR 100 UNITS/ML VIAL SQ SCH ×2 (09:00→21:14)
[2017-02-21 09:54] LABS: HEMOGLOBIN 8.6 GM/DL (13.0-17.0); MEAN CELL VOLUME 92.4 FL (80.0-100.0); MEAN CORPUSCULAR HEMOGLOBIN 31.6 PG (27.0-34.0); MEAN CORPUSCULAR HGB CONC 34.2 % (32.0-36.0); MEAN PLATELET VOLUME 8.2 FL (7.0-11.0); PLATELET COUNT 340 TH/MM3 (150-450); RED BLOOD COUNT 2.71 MIL/MM3 (4.50-5.90); RED CELL DISTRIBUTION WIDTH 13.8 % (11.6-17.2)
[2017-02-21] MEDS: DRONABINOL 5 MG CAP PO SCH ×2 (11:00→18:45)
[2017-02-21] MEDS ORDERED: PROPOFOL 200 MG/20 ML AMP IV ONE (12:00)
[2017-02-21] MEDS ORDERED: LIDOCAINE HCL 1% PF 5 ML SYRINGE OTHER ONE (12:00)
--- NOTE | 2017-02-21 15:45 | HHI.PR ---
Subjective Remarks BP elevated patient denies cp/sob still has poor appetite and not eating much. sister at bedside Objective Vitals Vital Signs Date Time Temp Pulse Resp B/P (MAP) Pulse Ox O2 Delivery O2 Flow Rate FiO2 02/21/17 12:00 97.5 85 20 168/74 (105) 96 02/21/17 08:17 94 21 02/21/17 08:00 98.3 74 20 144/64 (90) 94 02/21/17 08:00 70 02/21/17 04:00 97.8 71 20 163/76 (105) 98 02/21/17 03:46 73 02/21/17 00:00 98.5 73 23 151/67 (95) 100 02/20/17 23:39 75 02/20/17 20:04 70 02/20/17 20:00 98.3 69 22 118/61 (80) 97 02/20/17 16:00 97.3 75 20 148/73 (98) 99 02/20/17 15:55 77 I/O 02/20/17 02/20/17 02/20/17 02/21/17 02/21/17 02/21/17 06:59 14:59 22:59 06:59 14:59 22:59 Intake Total 474 ml 0 ml 1516 ml Output Total 1000 ml 1300 ml 850 ml Balance -526 ml -1300 ml 666 ml Intake Oral 474 ml 0 ml 180 ml IV Total 1336 ml Output Urine Total 1000 ml 1300 ml 850 ml # Bowel Movements 0 0 Result Diagram: 02/21/17 0853 02/20/17 1139 Imaging Last Impressions Renal Ultrasound 02/19/17 0000 Signed Impressions: Service Date/Time: Sunday, February 19, 2017 13:46 - CONCLUSION: Normal right kidney with questionable mild increased echogenicity of the cortex. No left kidney is visualized. Lopez catheter in place in the bladder. Incidentally appreciated is suggestion of a right pleural effusion. Manuel Bai MD Objective Remarks GENERAL: Patient appearing older than stated age, frail, in no apparent distress. SKIN: Left great toe is necrotic. Second and third toes also purple. CARDIOVASCULAR: Regular rate and rhythm without murmurs, gallops, or rubs. RESPIRATORY: Clear to auscultation. Breath sounds equal bilaterally. No wheezes , rales, or rhonchi. GASTROINTESTINAL: Abdomen soft, non-tender, nondistended. No guarding. MUSCULOSKELETAL: I am unable to palpate a dorsalis pedis pulse bilaterally. Left foot cooler compared to right. NEUROLOGICAL: Awake and alert. Normal speech. Procedures sp LLE aortogram with runoff Medications and IVs Current Medications Medications (Trade) Dose Ordered Sig/Pa Route Start Time Stop Time Status Last Admin (NS Flush) 2 ml UNSCH PRN IV FLUSH 02/09/17 21:45 (NS Flush) 2 ml BID IV FLUSH 02/10/17 09:00 02/20/17 09:16 (Zofran Inj) 4 mg Q6H PRN IVP 02/09/17 21:45 (Tylenol) 650 mg Q6H PRN PO 02/09/17 21:45 (Morphine Inj) 2 mg Q3H PRN IV PUSH 02/09/17 21:45 02/20/17 21:51 (Pat-Colace) 1 tab BID PO 02/10/17 09:00 02/21/17 08:49 (Milk Of Magnesia Liq) 30 ml Q12H PRN PO 02/09/17 21:45 (Senokot) 17.2 mg Q12H PRN PO 02/09/17 21:45 (Dulcolax Supp) 10 mg DAILY PRN RECTAL 02/09/17 21:45 (Lactulose Liq) 30 ml DAILY PRN PO 02/09/17 21:45 (D50w (Vial) Inj) 50 ml UNSCH PRN IV PUSH 02/09/17 23:00 (Glucagon Inj) 1 mg UNSCH PRN OTHER 02/09/17 23:00 (NovoLOG SUPPLEMENTAL SCALE) 1 ACHS SLIDING SCALE SQ 02/10/17 08:00 02/19/17 22:16 (Zovirax) 400 mg BID PO 02/10/17 09:00 02/21/17 08:54 (Lipitor) 20 mg HS PO 02/10/17 21:00 02/20/17 21:30 (Tessalon) 100 mg BID PRN PO 02/09/17 23:00 02/10/17 17:34 (Rocaltrol) 0.25 mcg DAILY PO 02/10/17 09:00 02/21/17 08:49 (Coreg) 6.25 mg BIDAC PO 02/10/17 07:00 02/21/17 06:02 (Roxicodone) 10 mg Q6H PRN PO 02/09/17 23:00 02/21/17 13:13 (Protonix) 40 mg DAILY PO 02/10/17 09:00 02/21/17 08:49 (OxyCONTIN CR) 30 mg BID PRN PO 02/09/17 23:00 02/21/17 06:01 (Restoril) 30 mg HS PRN PO 02/09/17 23:00 02/14/17 21:01 (Ecotrin Ec) 81 mg DAILY PO 02/11/17 09:00 02/21/17 08:49 (Catapres) 0.1 mg Q6H PRN PO 02/11/17 03:00 02/15/17 00:26 (Apresoline Inj) 10 mg Q3H PRN IV PUSH 02/13/17 09:15 02/15/17 12:11 (Plavix) 75 mg DAILY PO 02/14/17 09:00 Future Hold 02/20/17 09:14 (Norvasc) 10 mg DAILY PO 02/15/17 20:30 02/21/17 08:49 (Marinol) 5 mg BID@11,16 PO 02/16/17 16:00 02/20/17 17:53 (Heparin Inj) 5,000 units Q12HR SQ 02/18/17 12:15 Future Hold 02/20/17 09:13 (Megace Liq) 400 mg DAILY PO 02/18/17 12:15 02/20/17 09:16 Sodium Chloride 1,000 ml @ 84 mls/hr [id number] IV 02/19/17 10:30 02/21/17 13:18 (Levemir Inj) 5 units Q12HR SQ 02/19/17 21:00 02/20/17 21:50 Cefazolin Sodium 1000 mg/Sodium Chloride 100 ml @ 200 mls/hr HAND MOLDER AND CASTER IV 02/20/17 17:00 02/23/17 16:59 Lactated Ringer's 1,000 ml @ 30 mls/hr Q24H PRN IV 02/21/17 04:45 02/24/17 04:44 Sodium Chloride 500 ml @ 30 mls/hr [id number] PRN IV 02/21/17 04:45 02/24/17 04:44 (Betadine 5% Antisepsis Kit) 1 applic HAND MOLDER AND CASTER PRN EACH NARE 02/21/17 04:45 02/24/17 04:44 (Chlorhexidine 2% Cloth) 3 pack HAND MOLDER AND CASTER PRN TOPICAL 02/21/17 04:45 02/24/17 04:44 A/P Problem List: (1) Cellulitis ICD Code: L03.90 - Cellulitis, unspecified (2) Lower limb ischemia ICD Code: I99.8 - Other disorder of circulatory system (3) CKD (chronic kidney disease) ICD Code: N18.9 - Chronic kidney disease, unspecified (4) Diabetes ICD Code: E11.9 - Type 2 diabetes mellitus without complications (5) Tobacco abuse ICD Code: Z72.0 - Tobacco use (6) Severe protein-calorie malnutrition ICD Code: E43 - Unspecified severe protein-calorie malnutrition Status: Acute (7) Poor appetite ICD Code: R63.0 - Anorexia Assessment and Plan 66-year-old male presented with left lower extremity ischemia and cellulitis. Left great toe is necrotic, second and third great toe purple start on heparin drip on admission. There was evidence of cellulitis on presentation the patient was started on IV Rocephin. Restless surgery consulted. The patient underwent angioplasty. The patient was treated with aspirin and statin and counseled to quit smoking tobacco. The patient was cleared bibasilar surgery for DC. Patient will need outpatient follow-up with podiatry. Diabetes: The patient was placed on SSI with insulin and Accu-Cheks. Placed on regular diet since he was not eating much. Blood sugars became severely elevated in the 200 range, and the patient was started on insulin Levemir 5 units subcutaneous twice a day. Blood sugars then improved. The patient also was on D5 water with bicarbonate which was discontinued. 02/18 Continue SSI with insulin Novolog. Monitor Accuchecks. Will DC Levemir since blood sugars are lower since patient not eating. 02/20 blood sugars stable. SHIRA on CKD III: Unsure what his baseline is. Stable today Follow renal functions. Avoid nephrotoxins. 02/18 Creatinine is trending up. Possibly a combination of postobstructive nephropathy along with some dehydration. As per RN report there is retention of 500 ml of urine in bladder. Will insert lopez catheter and start on Flomax. 02/19 Continue lopez catheter. Creatinine continues to trend up. Likely secondary to poor oral intake and dehydration. I will start the patient IV normal saline and continue to monitor BUN/creatinine. Avoid nephrotoxins. 02/20 creatinine is improving and trending down. from 2.25 to 1.76. Multiple myeloma: He was evaluated by oncology outside hospital. No acute treatment indicated at this point. The recommendation. Outpatient follow-up is advised. Patient can continue same home medications. 02/19 patient's family is requesting an oncology consultation. Will consult medical oncology. The patient is undergoing treatment as an outpatient and this has been on hold to the patient has been admitted to the hospital. 02/20 appreciate medical oncology consultation. Recommended follow-up as an outpatient with oncologist in [place]. Chronic pain: Continue pain medication. Tobacco abuse: - Counseled patient on complete cessation given his significant vascular disease. HTN: Controlled continue amlodipine. 02/21 BP severely elevated in the 160's. will start patient on Cardura 2 mg po daily. Generalized weakness: Continue PT GI prophylaxis: Stool softener PRN constipation. Appreciate palliative care efforts. As per discussion of the case with palliative care, the family once the patient to go home with home health PT after PEG tube placement. Discharge Planning Pending PEG placement as well as tolerating tube feeding. Patient to go home with home health. Problem Qualifiers (1) Cellulitis: Qualified Codes: L03.116 - Cellulitis of left lower limb (2) CKD (chronic kidney disease): Qualified Codes: N18.3 - Chronic kidney disease, stage 3 (moderate) (3) Diabetes: Qualified Codes: E11.51 - Type 2 diabetes mellitus with diabetic peripheral angiopathy without gangrene Gulshan Sandoval MD Feb 21, 2017 15:45
[2017-02-21] MEDS ORDERED: ceFAZolin INJ 1,000 MG VIAL ONE (17:06)
--- NOTE | 2017-02-21 17:24 | GIPROC ---
[facility] [address] [facility]. [facility], [address] EGD WITH PEG PROCEDURE REPORT EXAM DATE: 02/21/2017 PATIENT NAME: Kirt Freeman MR#: [id number] BIRTHDATE: 1950 ATTENDING: Terrell Reddy MD ORDER #: [id number] AD WRITER: Will Maher and Rika Thompson STATUS: inpatient INDICATIONS: The patient is a 66 yr old male here for an EGD with PEG due to dysphagia PROCEDURE PERFORMED: EGD with PEG placement MEDICATIONS: None and Per Anesthesia. TOPICAL ANESTHETIC: CONSENT: The patient understands the risks and benefits of the procedure and understands that these risks include, but are not limited to: sedation, allergic reaction, infection, perforation and/or bleeding. Alternative means of evaluation and treatment include, among others: physical exam, x-rays, and/or surgical intervention. The patient elects to proceed with this endoscopic procedure. medical equipment was checked for proper function. Hand hygiene and appropriate measures for infection prevention was taken. After the risks, benefits and alternatives of the procedure were thoroughly explained, Informed consent was verified, confirmed and timeout was successfully executed by the treatment team. The patient was anesthetized with topical anesthesia and the Pentax [id number] endoscope was introduced through the mouth and advanced to the second portion of the duodenum. The instrument was slowly withdrawn as the mucosa was fully examined. Moderate gastritis was found The stomach was then inflated with air, and by a combination of transillumination and manual palpation, the site for the gastrostomy tube placement was selected and marked on the anterior abdominal wall. The skin of the anterior abdomen was surgically prepped and draped with sterile towels. Utilizing strict sterile technique, the selected site was then anesthetized with 1% xylocaine by injection into the skin and subcutaneous tissue. A 1 cm incision was made through the skin and subcutaneous tissue, and the needle/cannula assembly was then passed through the abdominal wall and through the anterior wall of the stomach, maintaining visualization with the endoscope. A snare device previously placed through the instrument channel was then opened and placed around the cannula, the needle was removed, and the insertion wire was passed through the cannula and into the stomach lumen. The snare was then loosened from the cannula, and repositioned to snare the insertion wire. The snare was then pulled up to the endoscope distal tip, and the scope was then withdrawn bringing with it the snare and insertion wire. The insertion wire was then released from the snare, and then loop-attached to the Bard 20 Fr gastrostomy tube. Using the "pull technique", the G-tube was then pulled into place by traction on the insertion wire at the abdominal wall end. The G-tube insertion site was then cleansed once again, and the external bolster was placed over the tube to secure it to the abdominal wall. A sterile dressing was then applied, and the procedure terminated. no abnormalities The gastroscope was then slowly withdrawn and removed. ADVERSE EVENT: There were no complications. IMPRESSIONS: 1. Moderate gastritis was found 2. No abnormalities RECOMMENDATIONS: PEG recomendations: 1- NPO for 6 hours except for meds 2- Flush PEG tube every 6 hours with water and after each PEG feeding 3- May resume regular diet in the morning 4- May use Ensure or Boost etc. for PEG tube feeding REPEAT EXAM: procedure as needed Terrell Reddy MD eSigned: Terrell Reddy MD 02/21/2017 5:23 PM cc: PATIENT NAME: Kirt Freeman MR#: [id number]
[2017-02-21] MEDS ORDERED: DO NOT ADM ANY ANTICOAGULANT DRUGS PRN (17:30)
[2017-02-21] MEDS ORDERED: ceFAZolin INJ 1,000 MG VIAL IV ONE (17:46)
[2017-02-21] MEDS: ATORVASTATIN 20 MG TAB PO SCH (21:13)
[2017-02-22] VITALS (12 sets, daily range): BP systolic 107–151; BP diastolic 62–74; PULSE 67–84; RESP 14–22; TEMP 97.9–99.1; O2SAT 95–100
[2017-02-22] MEDS: CARVEDILOL 6.25 MG TAB PO SCH ×2 (06:03→16:24)
[2017-02-22] MEDS: INSULIN ASPART SUPPLEMENTAL SCALE SQ SCH ×4 (08:00→20:38)
[2017-02-22 08:10] LABS: HEMATOCRIT 24.7 % (39.0-51.0); HEMOGLOBIN 8.2 GM/DL (13.0-17.0); MEAN CELL VOLUME 92.7 FL (80.0-100.0); MEAN CORPUSCULAR HEMOGLOBIN 30.8 PG (27.0-34.0); MEAN CORPUSCULAR HGB CONC 33.3 % (32.0-36.0); MEAN PLATELET VOLUME 7.9 FL (7.0-11.0); PLATELET COUNT 356 TH/MM3 (150-450); RED BLOOD COUNT 2.66 MIL/MM3 (4.50-5.90); WHITE BLOOD COUNT 11.6 TH/MM3 (4.0-11.0)
[2017-02-22] MEDS: SODIUM CHLORIDE 0.9% FLUSH 10 ML FLUSH IV FLUSH SCH ×2 (09:00→20:37)
[2017-02-22] MEDS: ACYCLOVIR 200 MG CAP PO SCH ×2 (09:07→20:37)
[2017-02-22] MEDS: PANTOPRAZOLE SOD 40 MG DELAYED RELEASE TAB PO SCH (09:07)
[2017-02-22] MEDS: ASPIRIN EC 81 MG TABEC PO SCH (09:07)
[2017-02-22] MEDS: MEGESTROL ACETATE SUSP 400 MG/10 ML CUP PO SCH (09:08)
[2017-02-22] MEDS: INSULIN DETEMIR 100 UNITS/ML VIAL SQ SCH ×2 (09:08→20:37)
[2017-02-22] MEDS: DOCUSATE SODIUM 50 MG/SENNA 8.6 MG TAB PO SCH ×2 (09:08→20:37)
[2017-02-22] MEDS: CALCITRIOL 0.25 MCG CAP PO SCH (09:08)
[2017-02-22] MEDS: SODIUM CHLOR 0.9% 1000 ML INJ 1,000 ML IV SCH ×2 (09:13→20:38)
--- NOTE | 2017-02-22 10:45 | HHI.PR ---
Subjective Remarks in no acute distress. but ill-looking. complaining of pain to the left foot. sister at the bedside. d/w the PT. Objective Vitals Vital Signs Date Time Temp Pulse Resp B/P (MAP) Pulse Ox O2 Delivery O2 Flow Rate FiO2 02/22/17 08:00 99.1 74 16 136/67 (90) 99 02/22/17 07:45 76 02/22/17 04:00 98.7 77 20 151/70 (97) 100 02/22/17 04:00 80 02/22/17 00:05 84 02/22/17 00:00 98.3 82 22 139/70 (93) 100 02/21/17 23:54 84 02/21/17 20:01 89 02/21/17 20:00 98.1 91 21 148/87 (107) 100 02/21/17 17:33 98.2 83 16 144/69 (94) 100 02/21/17 16:00 97.8 87 20 144/68 (93) 99 02/21/17 12:00 97.5 85 20 168/74 (105) 96 I/O 02/21/17 02/21/17 02/21/17 02/22/17 02/22/17 02/22/17 07:00 15:00 23:00 07:00 15:00 23:00 Intake Total 1516 ml 300 ml 280 ml Output Total 850 ml 525 ml 800 ml Balance 666 ml -225 ml -520 ml Intake Oral 180 ml 0 ml 280 ml IV Total 1336 ml Other 300 ml Output Urine Total 850 ml 525 ml 800 ml # Bowel Movements 1 Result Diagram: 02/22/17 0638 02/20/17 1139 Imaging Last Impressions Renal Ultrasound 02/19/17 0000 Signed Impressions: Service Date/Time: Sunday, February 19, 2017 13:46 - CONCLUSION: Normal right kidney with questionable mild increased echogenicity of the cortex. No left kidney is visualized. Watson catheter in place in the bladder. Incidentally appreciated is suggestion of a right pleural effusion. Manuel Bai MD Objective Remarks GENERAL: ill-looking, in no apparent distress. CARDIOVASCULAR: Regular rate and regular rhythm without murmurs, gallops, or rubs. RESPIRATORY: Clear to auscultation. Breath sounds equal bilaterally. No wheezes , rales, or rhonchi. GASTROINTESTINAL: Abdomen soft, non-tender, nondistended. Normal, active bowel sounds MUSCULOSKELETAL: Extremities without clubbing, cyanosis, or edema. NEURO: Alert & Oriented x4 to person, place, time, situation. Moves all ext x4 Procedures sp LLE aortogram with runoff Medications and IVs Inpatient Medications Acetaminophen (Tylenol) 650 mg Q6H PRN PO FEVER/PAIN SCALE 1 TO 2; Start at 21:45 Acetaminophen/ Hydrocodone Bitart ([place] 5-325 Mg) 1 tab Q4H PRN PO PAIN SCALE 3 TO 5; Start 02/09/17 at 21:45; Stop 02/09/17 at 22:53; Status DC Acyclovir (Zovirax) 400 mg BID PO Last administered on 02/22/17at 09:07; Start 02/10/17 at 09:00 Amlodipine Besylate (Norvasc) 10 mg DAILY PO Last administered on 02/22/17at 09: 08; Start 02/15/17 at 20:30 Aspirin (Ecotrin Ec) 81 mg DAILY PO Last administered on 02/22/17at 09:07; Start 02/11/17 at 09:00 Atorvastatin Calcium (Lipitor) 20 mg HS PO Last administered on 02/21/17at 21:13 ; Start 02/10/17 at 21:00 Benzonatate (Tessalon) 100 mg BID PRN PO COUGH Last administered on 02/10/17at 17 :34; Start 02/09/17 at 23:00 Bisacodyl (Dulcolax Supp) 10 mg DAILY PRN RECTAL SEVERE CONSITIPATION; Start at 21:45 Calcitriol (Rocaltrol) 0.25 mcg DAILY PO Last administered on 02/22/17at 09:08; Start 02/10/17 at 09:00 Carvedilol (Coreg) 6.25 mg BIDAC PO Last administered on 02/22/17at 06:03; Start 02/10/17 at 07:00 Cefazolin Sodium (Ancef Inj) 1,000 mg ONCE ONCE IV ; Start 02/21/17 at 17:46; Stop 02/21/17 at 18:06; Status DC Cefazolin Sodium 1000 mg/Sodium Chloride 100 ml @ 200 mls/hr STUDENT SUPPORT SERVICES DIRECTOR IV ; Start 02/20/17 at 17:00; Stop 02/23/17 at 16:59 Ceftriaxone Sodium 1000 mg/ Sodium Chloride 100 ml @ 200 mls/hr Q24H IV Last administered on 02/12/17at 09:01; Start 02/10/17 at 09:00; Stop 02/13/17 at 17:44; Status DC Chlorhexidine Gluconate (Chlorhexidine 2% Cloth) 3 pack STUDENT SUPPORT SERVICES DIRECTOR PRN TOPICAL SEE LABEL COMMENTS; Start 02/21/17 at 04:45; Stop 02/24/17 at 04:44 Clonidine (Catapres) 0.1 mg Q6H PRN PO sys >160 or thomas >90 Last administered on 02/15/17at 00:26; Start 02/11/17 at 03:00 Clopidogrel Bisulfate (Plavix) 75 mg DAILY PO Last administered on 02/20/17at 09 :14; Start 02/14/17 at 09:00; Status Future Hold Dextrose (D50w (Vial) Inj) 50 ml UNSCH PRN IV PUSH HYPOGLYCEMIA-SEE COMMENTS; Start 02/09/17 at 23:00 Dronabinol (Marinol) 5 mg BID@11,16 PO Last administered on 02/21/17at 18:45; Start 02/16/17 at 16:00 Glucagon (Glucagon Inj) 1 mg UNSCH PRN OTHER HYPOGLYCEMIA-SEE COMMENTS; Start 02/09/17 at 23:00 Heparin Sodium (Porcine) (Heparin Inj) 5,000 units Q12HR SQ Last administered on 02/20/17at 09:13; Start 02/18/17 at 12:15; Status Future Hold Heparin Sodium/ Dextrose 250 ml @ 9.72 mls/hr TITRATE PRN IV Coagulation Management Last administered on 02/14/17at 04:30; Start 02/13/17 at 12:00; Stop at 11:22; Status DC Hydralazine HCl (Apresoline Inj) 10 mg Q3H PRN IV PUSH SYS BP GREATER THAN 160 MMHG Last administered on 02/15/17at 12:11; Start 02/13/17 at 09:15 Insulin Aspart (NovoLOG SUPPLEMENTAL SCALE) 1 ACHS SLIDING SCALE SQ Last administered on 02/21/17at 21:13; Start 02/10/17 at 08:00 Insulin Detemir (Levemir Inj) 5 units Q12HR SQ Last administered on 02/22/17at 09:08; Start 02/19/17 at 21:00 Lactated Ringer's 1,000 ml @ 30 mls/hr Q24H PRN IV SEE LABEL COMMENTS; Start at 04:45; Stop 02/24/17 at 04:44 Lactulose (Lactulose Liq) 30 ml DAILY PRN PO SEVERE CONSITIPATION; Start at 21:45 Magnesium Hydroxide (Milk Of Magnesia Liq) 30 ml Q12H PRN PO Mild constipation ; Start 02/09/17 at 21:45 Megestrol Acetate (Megace Liq) 400 mg DAILY PO Last administered on 02/22/17at 09:08; Start 02/18/17 at 12:15 Miscellaneous Information ALL NURSING DEPARTME... UNSCH PRN .XX SEE LABEL COMMENTS; Start 02/21/17 at 17:30; Stop 02/22/17 at 17:29 Morphine Sulfate (Morphine Inj) 2 mg Q3H PRN IV PUSH Pain 6-10 Last administered on 02/20/17at 21:51; Start 02/09/17 at 21:45 Ondansetron HCl (Zofran Inj) 4 mg Q6H PRN IVP NAUSEA OR VOMITING; Start at 21:45 Oxycodone HCl (OxyCONTIN CR) 30 mg BID PRN PO PAIN 3-5 Last administered on at 06:01; Start 02/09/17 at 23:00 Oxycodone HCl (Roxicodone) 10 mg Q6H PRN PO PRN PAIN 3-5 Last administered on at 06:06; Start 02/09/17 at 23:00 Pantoprazole Sodium (Protonix) 40 mg DAILY PO Last administered on 02/22/17at 09 :07; Start 02/10/17 at 09:00 Potassium Chloride (KCl) 30 meq ONCE ONCE PO Last administered on 02/14/17at 12 :56; Start 02/14/17 at 12:15; Stop 02/14/17 at 12:16; Status DC Povidone Iodine (Betadine 5% Antisepsis Kit) 1 applic STUDENT SUPPORT SERVICES DIRECTOR PRN EACH NARE SEE LABEL COMMENTS; Start 02/21/17 at 04:45; Stop 02/24/17 at 04:44 Senna/Docusate Sodium (Pat-Colace) 1 tab BID PO Last administered on at 09:08; Start 02/10/17 at 09:00 Sennosides (Senokot) 17.2 mg Q12H PRN PO Moderate constipation; Start 02/09/17 at 21:45 Sodium Bicarbonate 50 meq/Dextrose 1,050 ml @ 42 mls/hr Q24H IV Last administered on 02/14/17at 20:56; Start 02/11/17 at 23:00; Stop 02/15/17 at 14:00 ; Status DC Sodium Chloride 500 ml @ 30 mls/hr [id number] PRN IV SEE LABEL COMMENTS; Start at 04:45; Stop 02/24/17 at 04:44 Sodium Chloride (NS Flush) 2 ml BID IV FLUSH Last administered on 02/21/17at 21: 15; Start 02/10/17 at 09:00 Temazepam (Restoril) 30 mg HS PRN PO INSOMNIA Last administered on 02/14/17at 21 :01; Start 02/09/17 at 23:00 A/P Problem List: (1) Cellulitis ICD Code: L03.90 - Cellulitis, unspecified (2) Lower limb ischemia ICD Code: I99.8 - Other disorder of circulatory system (3) CKD (chronic kidney disease) ICD Code: N18.9 - Chronic kidney disease, unspecified (4) Diabetes ICD Code: E11.9 - Type 2 diabetes mellitus without complications (5) Tobacco abuse ICD Code: Z72.0 - Tobacco use (6) Severe protein-calorie malnutrition ICD Code: E43 - Unspecified severe protein-calorie malnutrition Status: Acute (7) Poor appetite ICD Code: R63.0 - Anorexia Assessment and Plan -Left great toe is necrotic, second and third great toe purple start on heparin drip on admission. There was evidence of cellulitis on presentation the patient was started on IV Rocephin. vascular surgery consulted. The patient underwent angioplasty. continue with antiplatelets- cleared for discharge per vascular surgery. - Diabetes: continue SSI. SHIRA on CKD III: Unsure what his baseline is. Follow renal functions. Avoid nephrotoxins. multiple myeloma- f/u with oncology as outpatient. cachexia; s/p PEG placement- will start tube feeding- consult ST. Chronic pain: Continue pain medication. Tobacco abuse: - Counseled patient on complete cessation given his significant vascular disease. HTN: continue amlodipine . Generalized weakness: Continue PT GI prophylaxis: Stool softener PRN constipation. Discharge Planning dc home with [facility] tomorrow if stable. d/w the and hospice will be consulted prior to discharge. Problem Qualifiers (1) Cellulitis: Qualified Codes: L03.116 - Cellulitis of left lower limb (2) CKD (chronic kidney disease): Qualified Codes: N18.3 - Chronic kidney disease, stage 3 (moderate) (3) Diabetes: Qualified Codes: E11.51 - Type 2 diabetes mellitus with diabetic peripheral angiopathy without gangrene Shaista Nolasco MD Feb 22, 2017 10:45
--- NOTE | 2017-02-22 10:47 | HHI.FF ---
Face to Face Verification Diagnosis: (1) Multiple myeloma (2) Pain, generalized Physical Therapy Order: Evaluate and Treat Home Health Nursing Order: Medical education Signs/symptoms of disease process Wound care and dressing changes Nursing assessment with vital signs I have seen patient Kirt Freeman on 02/22/17. My clinical findings support the need for the requested home health care services because: Ltd mobility - disease progression I certify that my clinical findings support that this patient is homebound because: Unsteady gait/balance Shaista Nolasco MD Feb 22, 2017 10:47
[2017-02-22] MEDS: DRONABINOL 5 MG CAP PO SCH ×2 (11:43→16:24)
--- NOTE | 2017-02-22 11:47 | HHI.GIFU ---
Subjective Remarks Patient is awake, responds to simple conversation PEG tube intact with dressing, no drainage or erythema Hemoglobin 8.2 but no active bleeding noted Temp 99.1 (Katherine Kulkarni) Objective Vitals I&O Vital Signs Date Time Temp Pulse Resp B/P (MAP) Pulse Ox O2 Delivery O2 Flow Rate FiO2 02/22/17 08:00 99.1 74 16 136/67 (90) 99 02/22/17 07:45 76 02/22/17 04:00 98.7 77 20 151/70 (97) 100 02/22/17 04:00 80 02/22/17 00:05 84 02/22/17 00:00 98.3 82 22 139/70 (93) 100 02/21/17 23:54 84 02/21/17 20:01 89 02/21/17 20:00 98.1 91 21 148/87 (107) 100 02/21/17 17:33 98.2 83 16 144/69 (94) 100 02/21/17 16:00 97.8 87 20 144/68 (93) 99 02/21/17 12:00 97.5 85 20 168/74 (105) 96 I/O 02/21/17 02/21/17 02/21/17 02/22/17 02/22/17 02/22/17 07:00 15:00 23:00 07:00 15:00 23:00 Intake Total 1516 ml 300 ml 280 ml Output Total 850 ml 525 ml 800 ml Balance 666 ml -225 ml -520 ml Intake Oral 180 ml 0 ml 280 ml IV Total 1336 ml Other 300 ml Output Urine Total 850 ml 525 ml 800 ml # Bowel Movements 1 Laboratory Laboratory Tests Test 02/22/17 06:38 White Blood Count 11.6 Red Blood Count 2.66 Hemoglobin 8.2 Hematocrit 24.7 Mean Corpuscular Volume 92.7 Mean Corpuscular Hemoglobin 30.8 Mean Corpuscular Hemoglobin Concent 33.3 Red Cell Distribution Width 14.0 Platelet Count 356 Mean Platelet Volume 7.9 Imaging Last Impressions Renal Ultrasound 02/19/17 0000 Signed Impressions: Service Date/Time: Sunday, February 19, 2017 13:46 - CONCLUSION: Normal right kidney with questionable mild increased echogenicity of the cortex. No left kidney is visualized. Watson catheter in place in the bladder. Incidentally appreciated is suggestion of a right pleural effusion. Manuel Bai MD Physical Exam HEENT: Pupils round and reactive to light; normocephalic; atraumatic; skin color pale NECK: Neck is supple, no JVD, thin CHEST: Chest is clear without rhonchi CARDIAC: Regular rate and rhythm ABDOMEN: Soft, nondistended, nontender; no hepatosplenomegaly; bowel sounds soft, flat EXTREMITIES: No edema., Thin extremities, muscle wasting SKIN: Normal; no rash; no jaundice. MINE ENGINEER: Responds to simple conversation (Katherine Kulkarni) Assessment and Plan Plan ASSESSMENT - cachexia, poor PO intake - unclear etiology. hx multiple myeloma. s/p angiogram and stenting LLE for necrotic toe. calorie count pending but pt eating little or 0 % d/w pts and she wishes to proceed. d/w primary. plavix, heparin held - PEG tube placed per GI complications. Patient has abdominal binder for protection. Site clean dry and intact PLAN - Feedings to start today - nutrition consult for TF - Monitor labs, as needed - Dressing changes daily - Recommend to consider continuing ST even on an outpatient basis if there is a chance the patient may eat again - GI will sign off for now call if needed pt seen by myself and Dr Jaramillo and this note is written on his behalf (Katherine Kulkarni) Physician Comments Patient was seen and examined Agree with above Continue with current supportive care Monitor labs We will sign off (Maurice Jaramillo MD) Katherine Kulkarni Feb 22, 2017 11:47 Maurice Jaramillo MD Feb 22, 2017 23:45
[2017-02-22] MEDS: ATORVASTATIN 20 MG TAB PO SCH (20:37)
[2017-02-23] VITALS: BP 151/75; PULSE 83; RESP 18; TEMP 98.5; O2SAT 99
[2017-02-23 03:47] VITALS: PULSE 76
[2017-02-23 04:00] VITALS: BP 153/76; PULSE 86; RESP 18; TEMP 98.3; O2SAT 98
[2017-02-23] MEDS: CARVEDILOL 6.25 MG TAB PO SCH ×2 (05:49→17:19)
[2017-02-23] MEDS: SODIUM CHLOR 0.9% 1000 ML INJ 1,000 ML IV SCH (07:37)
[2017-02-23 08:00] VITALS: BP 153/72; PULSE 72; PULSE 77; PULSE 80; RESP 18; TEMP 98.4; O2SAT 97
[2017-02-23] MEDS: INSULIN ASPART SUPPLEMENTAL SCALE SQ SCH ×4 (08:55→21:02)
[2017-02-23] MEDS: MEGESTROL ACETATE SUSP 400 MG/10 ML CUP PO SCH (08:56)
[2017-02-23] MEDS: ACYCLOVIR 200 MG CAP PO SCH ×2 (08:56→21:00)
[2017-02-23] MEDS: INSULIN DETEMIR 100 UNITS/ML VIAL SQ SCH ×2 (08:56→21:01)
[2017-02-23] MEDS: DOCUSATE SODIUM 50 MG/SENNA 8.6 MG TAB PO SCH ×2 (08:57→21:00)
[2017-02-23] MEDS: SODIUM CHLORIDE 0.9% FLUSH 10 ML FLUSH IV FLUSH SCH ×2 (08:57→21:01)
[2017-02-23] MEDS: CALCITRIOL 0.25 MCG CAP PO SCH (08:57)
[2017-02-23] MEDS: ASPIRIN EC 81 MG TABEC PO SCH (08:57)
[2017-02-23] MEDS: PANTOPRAZOLE SOD 40 MG DELAYED RELEASE TAB PO SCH (08:57)
--- NOTE | 2017-02-23 11:00 | HHI.PR ---
Subjective Remarks in no acute distress. lethargic. ' had a rough night' because of the pain and didn't want to work with PT today. at the bedside. Objective Vitals Vital Signs Date Time Temp Pulse Resp B/P (MAP) Pulse Ox O2 Delivery O2 Flow Rate FiO2 02/23/17 08:00 Room Air 02/23/17 08:00 77 02/23/17 08:00 98.4 80 18 153/72 (99) 97 02/23/17 04:00 Room Air 02/23/17 04:00 98.3 86 18 153/76 (101) 98 02/23/17 03:47 76 02/23/17 00:00 98.5 83 18 151/75 (100) 99 02/23/17 00:00 Room Air 02/22/17 22:14 75 02/22/17 20:00 98.4 79 18 107/73 (84) 95 02/22/17 20:00 Room Air 02/22/17 19:48 76 02/22/17 16:58 71 02/22/17 16:00 97.9 70 16 148/74 (98) 99 02/22/17 12:05 69 02/22/17 12:00 98.8 67 14 119/62 (81) 100 I/O 02/22/17 02/22/17 02/22/17 02/23/17 02/23/17 02/23/17 07:00 15:00 23:00 07:00 15:00 23:00 Intake Total 280 ml 1000 ml 1000 ml 1137 ml 1000 ml Output Total 800 ml 1750 ml Balance -520 ml 1000 ml 1000 ml -613 ml 1000 ml Intake Oral 280 ml IV Total 1000 ml 1000 ml 1000 ml Tube Feeding 1037 ml Other 100 ml Output Urine Total 800 ml 1750 ml Result Diagram: 02/22/17 0638 02/20/17 1139 Imaging Last Impressions Renal Ultrasound 02/19/17 0000 Signed Impressions: Service Date/Time: Sunday, February 19, 2017 13:46 - CONCLUSION: Normal right kidney with questionable mild increased echogenicity of the cortex. No left kidney is visualized. Watson catheter in place in the bladder. Incidentally appreciated is suggestion of a right pleural effusion. Manuel Bai MD Objective Remarks GENERAL: ill-looking, in no apparent distress. CARDIOVASCULAR: Regular rate and regular rhythm without murmurs, gallops, or rubs. RESPIRATORY: Clear to auscultation. Breath sounds equal bilaterally. No wheezes , rales, or rhonchi. GASTROINTESTINAL: Abdomen soft, non-tender, nondistended. Normal, active bowel sounds MUSCULOSKELETAL: Extremities without clubbing, cyanosis, or edema. NEURO: Alert & Oriented x4 to person, place, time, situation. Moves all ext x4 Procedures sp LLE aortogram with runoff Medications and IVs Inpatient Medications Acetaminophen (Tylenol) 650 mg Q6H PRN PO FEVER/PAIN SCALE 1 TO 2; Start at 21:45 Acetaminophen/ Hydrocodone Bitart (Alberta 5-325 Mg) 1 tab Q4H PRN PO PAIN SCALE 3 TO 5; Start 02/09/17 at 21:45; Stop 02/09/17 at 22:53; Status DC Acyclovir (Zovirax) 400 mg BID PO Last administered on 02/23/17at 08:56; Start 02/10/17 at 09:00 Amlodipine Besylate (Norvasc) 10 mg DAILY PO Last administered on 02/23/17at 08: 57; Start 02/15/17 at 20:30 Aspirin (Ecotrin Ec) 81 mg DAILY PO Last administered on 02/23/17at 08:57; Start 02/11/17 at 09:00 Atorvastatin Calcium (Lipitor) 20 mg HS PO Last administered on 02/22/17at 20:37 ; Start 02/10/17 at 21:00 Benzonatate (Tessalon) 100 mg BID PRN PO COUGH Last administered on 02/10/17at 17 :34; Start 02/09/17 at 23:00 Bisacodyl (Dulcolax Supp) 10 mg DAILY PRN RECTAL SEVERE CONSITIPATION; Start at 21:45 Calcitriol (Rocaltrol) 0.25 mcg DAILY PO Last administered on 02/23/17at 08:57; Start 02/10/17 at 09:00 Carvedilol (Coreg) 6.25 mg BIDAC PO Last administered on 02/23/17at 05:49; Start 02/10/17 at 07:00 Cefazolin Sodium (Ancef Inj) 1,000 mg ONCE ONCE IV ; Start 02/21/17 at 17:46; Stop 02/21/17 at 18:06; Status DC Cefazolin Sodium 1000 mg/Sodium Chloride 100 ml @ 200 mls/hr CAR HOP IV ; Start 02/20/17 at 17:00; Stop 02/23/17 at 16:59 Ceftriaxone Sodium 1000 mg/ Sodium Chloride 100 ml @ 200 mls/hr Q24H IV Last administered on 02/12/17at 09:01; Start 02/10/17 at 09:00; Stop 02/13/17 at 17:44; Status DC Chlorhexidine Gluconate (Chlorhexidine 2% Cloth) 3 pack CAR HOP PRN TOPICAL SEE LABEL COMMENTS; Start 02/21/17 at 04:45; Stop 02/24/17 at 04:44 Clonidine (Catapres) 0.1 mg Q6H PRN PO sys >160 or thomas >90 Last administered on 02/15/17at 00:26; Start 02/11/17 at 03:00 Clopidogrel Bisulfate (Plavix) 75 mg DAILY PO Last administered on 02/20/17at 09 :14; Start 02/14/17 at 09:00; Status Future Hold Dextrose (D50w (Vial) Inj) 50 ml UNSCH PRN IV PUSH HYPOGLYCEMIA-SEE COMMENTS; Start 02/09/17 at 23:00 Dronabinol (Marinol) 5 mg BID@11,16 PO Last administered on 02/22/17at 16:24; Start 02/16/17 at 16:00 Glucagon (Glucagon Inj) 1 mg UNSCH PRN OTHER HYPOGLYCEMIA-SEE COMMENTS; Start 02/09/17 at 23:00 Heparin Sodium (Porcine) (Heparin Inj) 5,000 units Q12HR SQ Last administered on 02/20/17at 09:13; Start 02/18/17 at 12:15; Status Future Hold Heparin Sodium/ Dextrose 250 ml @ 9.72 mls/hr TITRATE PRN IV Coagulation Management Last administered on 02/14/17at 04:30; Start 02/13/17 at 12:00; Stop at 11:22; Status DC Hydralazine HCl (Apresoline Inj) 10 mg Q3H PRN IV PUSH SYS BP GREATER THAN 160 MMHG Last administered on 02/15/17at 12:11; Start 02/13/17 at 09:15 Insulin Aspart (NovoLOG SUPPLEMENTAL SCALE) 1 ACHS SLIDING SCALE SQ Last administered on 02/23/17at 08:55; Start 02/10/17 at 08:00 Insulin Detemir (Levemir Inj) 5 units Q12HR SQ Last administered on 02/23/17at 08:56; Start 02/19/17 at 21:00 Lactated Ringer's 1,000 ml @ 30 mls/hr Q24H PRN IV SEE LABEL COMMENTS; Start at 04:45; Stop 02/24/17 at 04:44 Lactulose (Lactulose Liq) 30 ml DAILY PRN PO SEVERE CONSITIPATION; Start at 21:45 Magnesium Hydroxide (Milk Of Magnesia Liq) 30 ml Q12H PRN PO Mild constipation ; Start 02/09/17 at 21:45 Megestrol Acetate (Megace Liq) 400 mg DAILY PO Last administered on 02/23/17at 08:56; Start 02/18/17 at 12:15 Miscellaneous Information ALL NURSING DEPARTME... UNSCH PRN .XX SEE LABEL COMMENTS; Start 02/21/17 at 17:30; Stop 02/22/17 at 17:29; Status DC Morphine Sulfate (Morphine Inj) 2 mg Q3H PRN IV PUSH Pain 6-10 Last administered on 02/20/17at 21:51; Start 02/09/17 at 21:45 Ondansetron HCl (Zofran Inj) 4 mg Q6H PRN IVP NAUSEA OR VOMITING; Start at 21:45 Oxycodone HCl (OxyCONTIN CR) 30 mg BID PRN PO PAIN 3-5 Last administered on at 06:01; Start 02/09/17 at 23:00; Stop 02/22/17 at 19:07; Status DC Oxycodone HCl (Roxicodone) 10 mg Q6H PRN PO PRN PAIN 3-5 Last administered on at 09:04; Start 02/09/17 at 23:00 Pantoprazole Sodium (Protonix) 40 mg DAILY PO Last administered on 02/23/17at 08 :57; Start 02/10/17 at 09:00 Potassium Chloride (KCl) 30 meq ONCE ONCE PO Last administered on 02/14/17at 12 :56; Start 02/14/17 at 12:15; Stop 02/14/17 at 12:16; Status DC Povidone Iodine (Betadine 5% Antisepsis Kit) 1 applic CAR HOP PRN EACH NARE SEE LABEL COMMENTS; Start 02/21/17 at 04:45; Stop 02/24/17 at 04:44 Senna/Docusate Sodium (Pat-Colace) 1 tab BID PO Last administered on at 08:57; Start 02/10/17 at 09:00 Sennosides (Senokot) 17.2 mg Q12H PRN PO Moderate constipation; Start 02/09/17 at 21:45 Sodium Bicarbonate 50 meq/Dextrose 1,050 ml @ 42 mls/hr Q24H IV Last administered on 02/14/17at 20:56; Start 02/11/17 at 23:00; Stop 02/15/17 at 14:00 ; Status DC Sodium Chloride 500 ml @ 30 mls/hr [id number] PRN IV SEE LABEL COMMENTS; Start at 04:45; Stop 02/24/17 at 04:44 Sodium Chloride (NS Flush) 2 ml BID IV FLUSH Last administered on 02/22/17at 20: 37; Start 02/10/17 at 09:00 Temazepam (Restoril) 30 mg HS PRN PO INSOMNIA Last administered on 02/14/17at 21 :01; Start 02/09/17 at 23:00 A/P Problem List: (1) Cellulitis ICD Code: L03.90 - Cellulitis, unspecified (2) Lower limb ischemia ICD Code: I99.8 - Other disorder of circulatory system (3) CKD (chronic kidney disease) ICD Code: N18.9 - Chronic kidney disease, unspecified (4) Diabetes ICD Code: E11.9 - Type 2 diabetes mellitus without complications (5) Tobacco abuse ICD Code: Z72.0 - Tobacco use (6) Severe protein-calorie malnutrition ICD Code: E43 - Unspecified severe protein-calorie malnutrition Status: Acute (7) Poor appetite ICD Code: R63.0 - Anorexia Assessment and Plan -Left great toe is necrotic, second and third great toe purple start on heparin drip on admission. There was evidence of cellulitis on presentation the patient was started on IV Rocephin. vascular surgery consulted. The patient underwent angioplasty. continue with antiplatelets- cleared for discharge per vascular surgery. Diabetes: continue SSI. SHIRA on CKD III: Unsure what his baseline is. Follow renal functions. Avoid nephrotoxins. multiple myeloma- f/u with oncology as outpatient. cachexia; s/p PEG placement- will start tube feeding- consult ST. Chronic pain: Continue pain medication. Tobacco abuse: - Counseled patient on complete cessation given his significant vascular disease. HTN: continue amlodipine . Generalized weakness: Continue PT GI prophylaxis: Stool softener PRN constipation. Discharge Planning d/w the patient's at length. hospice was offered which she agreed with. awaiting hospice evaluation. dc home with hospice later today. time spent 35 min. Problem Qualifiers (1) Cellulitis: Qualified Codes: L03.116 - Cellulitis of left lower limb (2) CKD (chronic kidney disease): Qualified Codes: N18.3 - Chronic kidney disease, stage 3 (moderate) (3) Diabetes: Qualified Codes: E11.51 - Type 2 diabetes mellitus with diabetic peripheral angiopathy without gangrene Shaista Nolasco MD Feb 23, 2017 10:59
--- NOTE | 2017-02-23 11:03 | HHI.DS ---
Discharge Summary Admission Date Feb 09, 2017 at 21:14 Discharge Date: Feb 23, 2017 Admitting Diagnosis Left lower limb ischemia. (1) Cellulitis ICD Code: L03.90 - Cellulitis, unspecified Diagnosis: Principal (2) Lower limb ischemia ICD Code: I99.8 - Other disorder of circulatory system Diagnosis: Principal (3) CKD (chronic kidney disease) ICD Code: N18.9 - Chronic kidney disease, unspecified Diagnosis: Secondary (4) Diabetes ICD Code: E11.9 - Type 2 diabetes mellitus without complications Diagnosis: Secondary (5) Tobacco abuse ICD Code: Z72.0 - Tobacco use Diagnosis: Secondary (6) Severe protein-calorie malnutrition ICD Code: E43 - Unspecified severe protein-calorie malnutrition Diagnosis: Secondary Status: Acute (7) Poor appetite ICD Code: R63.0 - Anorexia Diagnosis: Secondary Procedures sp LLE aortogram with runoff Brief History - From Admission 66-year-old male with a medical history significant for multiple myeloma, hypertension, diabetes, COPD, GERD, tobacco abuser, and previous prostate cancer. The patient was transferred from [facility]. Apparently he was admitted there for discolored left first toe. He stopped his Toprol about 3 weeks prior. He had a small abrasion on the distal tip of the toe. This has not been healing and he continued to experience pain. At the outside hospital, the patient was evaluated by vascular surgery. 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 Give in his kidney functions, patient could not have CTA. Patient was transferred to [facility] for definitive treatment with vascular surgery consult. Records from the outside hospital extensively reviewed. He was being treated for cellulitis and has been on a heparin drip. Currently the patient has no other complaints except for discomfort at the left foot with movement. CBC/BMP: 02/22/17 0638 02/20/17 1139 Significant Findings Laboratory Tests Test 02/20/17 11:39 02/21/17 08:53 02/22/17 06:38 Red Blood Count 2.69 MIL/MM3 (4.50-5.90) 2.71 MIL/MM3 (4.50-5.90) 2.66 MIL/MM3 (4.50-5.90) Hemoglobin 8.4 GM/DL (13.0-17.0) 8.6 GM/DL (13.0-17.0) 8.2 GM/DL (13.0-17.0) Hematocrit 24.9 % (39.0-51.0) 25.0 % (39.0-51.0) 24.7 % (39.0-51.0) Blood Urea Nitrogen 40 MG/DL (7-18) Creatinine 1.76 MG/DL (0.60-1.30) Random Glucose 125 MG/DL (74-106) Phosphorus Level 1.6 MG/DL (2.5-4.9) Magnesium Level 2.6 MG/DL (1.5-2.5) Chloride Level 113 MEQ/L (98-107) Estimat Glomerular Filtration Rate 39 ML/MIN (>89) White Blood Count 11.6 TH/MM3 (4.0-11.0) Imaging Last Impressions Renal Ultrasound 02/19/17 0000 Signed Impressions: Service Date/Time: Sunday, February 19, 2017 13:46 - CONCLUSION: Normal right kidney with questionable mild increased echogenicity of the cortex. No left kidney is visualized. Watson catheter in place in the bladder. Incidentally appreciated is suggestion of a right pleural effusion. Manuel Bai MD PE at Discharge GENERAL: ill-looking, in no apparent distress. CARDIOVASCULAR: Regular rate and regular rhythm without murmurs, gallops, or rubs. RESPIRATORY: Clear to auscultation. Breath sounds equal bilaterally. No wheezes , rales, or rhonchi. GASTROINTESTINAL: Abdomen soft, non-tender, nondistended. Normal, active bowel sounds MUSCULOSKELETAL: Extremities without clubbing, cyanosis, or edema. NEURO: Alert & Oriented x4 to person, place, time, situation. Moves all ext x4 Hospital Course patient was admitted with the ischemia of the left foot along with cellulitic changes. he was seen by vascular surgery and underwent angiography of the left lower extremity. he was seen by Oncology. he was started on antiplatelets and pain control. PEG tube was inserted and he was started on tube feeding. hospice was d/w the patient's which she agreed. she wanted to take him home with hospice. Pt Condition on Discharge: Deteriorating Discharge Disposition: Hospice/ Home Discharge Time: > 30 minutes Discharge Instructions DIET: Follow Instructions for: Diabetic Diet Speech Therapy-Diet Recommends: Pureed, [place] Thickened Liquids Activities you can perform: See Additionl Instruction Other Activity Instructions: OOB with assistance As per Pt recommendations Shaista Nolasco MD Feb 23, 2017 11:03
[2017-02-23 12:00] VITALS: BP 134/64; PULSE 64; PULSE 71; RESP 18; TEMP 98.2; O2SAT 97
[2017-02-23] MEDS: DRONABINOL 5 MG CAP PO SCH ×2 (12:13→17:19)
[2017-02-23 16:00] VITALS: BP 163/77; PULSE 72; PULSE 73; RESP 18; TEMP 98; O2SAT 97
[2017-02-23] MEDS: ATORVASTATIN 20 MG TAB PO SCH (21:00)
== END 2017-02-23 22:02 | disposition hospice, inpatient (51) | DRG 270 ==
LOC: N04B 16:51 → UNDOADMIN 16:51 → N04B 21:14
PROVIDERS: ADMIT Internal Medicine; ATTEND Internal Medicine
PROC: 047L3DZ Dilation of Left Femoral Artery with Intraluminal Device, Percutaneous Approach (ICD-10-PCS; 2017-02-13)
PROC: 047U3ZZ Dilation of Left Peroneal Artery, Percutaneous Approach (ICD-10-PCS; 2017-02-13)
PROC: B41G1ZZ Fluoroscopy of Left Lower Extremity Arteries using Low Osmolar Contrast (ICD-10-PCS; 2017-02-13)
PROC: 04CL3ZZ Extirpation of Matter from Left Femoral Artery, Percutaneous Approach (ICD-10-PCS; principal; 2017-02-13 08:00)
PROC: 0DH63UZ Insertion of Feeding Device into Stomach, Percutaneous Approach (ICD-10-PCS; 2017-02-21)
DX: E11.52 Type 2 diabetes mellitus with diabetic peripheral angiopathy with gangrene (principal); E43 Unspecified severe protein-calorie malnutrition; R64 Cachexia; C90.00 Multiple myeloma not having achieved remission; E11.22 Type 2 diabetes mellitus with diabetic chronic kidney disease; R13.10 Dysphagia, unspecified; N17.9 Acute kidney failure, unspecified; L03.116 Cellulitis of left lower limb; N18.3 Chronic kidney disease, stage 3 (moderate); Z68.1 Body mass index [BMI] 19.9 or less, adult; I73.9 Peripheral vascular disease, unspecified; K21.9 Gastro-esophageal reflux disease without esophagitis; J44.9 Chronic obstructive pulmonary disease, unspecified; F17.210 Nicotine dependence, cigarettes, uncomplicated; M35.3 Polymyalgia rheumatica; M19.90 Unspecified osteoarthritis, unspecified site; E78.5 Hyperlipidemia, unspecified; I99.8 Other disorder of circulatory system; R62.7 Adult failure to thrive; I12.9 Hypertensive chronic kidney disease with stage 1 through stage 4 chronic kidney disease, or unspecified chronic kidney disease; G89.29 Other chronic pain; K29.70 Gastritis, unspecified, without bleeding; E86.0 Dehydration; Z51.5 Encounter for palliative care; Z79.4 Long term (current) use of insulin; Z90.79 Acquired absence of other genital organ(s); Z85.46 Personal history of malignant neoplasm of prostate; Z92.3 Personal history of irradiation
CPT/HCPCS: 37227; 37228; 75710; 76775; 80048; 80053; 82948; 83735; 84100; 85025; 85027; 85610; 85730; 93005; 99152; 99153; C1714; C1725; C1751; C1760; C1769; C1876; C1893; G0269; J0360; J0690; J0696; J1644; J1815; J2250; J2270; J3010; J7030; J7070; Q9967